=== PATIENT | female | born 1945 | race Caucasian/White ===

== ENCOUNTER 2016-12-14 13:04 | Inpatient (IN) | payer OTHER, MEDICAID ==
--- NOTE | 2016-12-14 13:48 | EDPHY ---
HPI/HX/ROS/PE/MDM - Data Points Imaging: Discussed imaging studies w/ call center support consultant Radiologist Narrative: CHIEF COMPLAINT: Altered mental status. HISTORY OF PRESENT ILLNESS: This patient is a 71 year old female with history of CVA with persistent mild expressive aphasia, end stage renal disease, and COPD arriving via EMS from [place] for evaluation of altered mental status. She was admitted to [place] from [facility] in Jun, 2016. The patient was unusually fatigued following her dialysis appointment this morning and presents for evaluation. When the patient arrived via EMS, she was awake and chatting with no complaints. On my evaluation 10 minutes later, the patient appears to be sound asleep. She is sluggishly arousable. Will open her eyes and focus but not conversant with me. Vital signs are stable the patient is patent. Nurse reports that this is definitely a change from her prior initial presentation. HPI obtained primarily through nurse summary of EMS report. REVIEW OF SYSTEMS: Unable to obtain due to patient presentation. PAST MEDICAL HISTORY: 1. End stage real disease, 2. Diabetes mellitus type II 3. Knee amputation left, 4. COPD, 5. Hypertension 6. Pulmonary edema 7. Cardiomegaly 8. Heart failure 9. Hypothyroidism 10. CVA with persistent mild expressive aphasia. 11. GERD SOCIAL HISTORY: Lives at [place]. . Niece lives in [place]. VITAL SIGNS: Reviewed by me GENERAL: Elderly, debilitated, somnolent. Sleeping but minimally arousable. Will open her eyes to command. HEENT: Ecchymosis across forehead and circular healing abrasion over forehead at scalp line. Eyes: Pupils 3mm bilaterally. Reactive bilaterally. Disconjugate gaze. No icterus, no injection. Mouth: moist mucous membranes. No erythema or lesions. Neck: supple with no adenopathy. LUNGS: Crackles at bases bilaterally CARDIAC: Regular rate and rhythm, no rubs, murmurs or gallops. ABDOMEN: Soft, nondistended, bowel sounds normal. BACK: No CVA tenderness. EXTREMITIES: Left leg amputation below the knee. No trauma. No edema. Range of motion is normal throughout. NEURO: Somnolent. Disconjugate gaze. SKIN: Warm and dry, no rash. PSYCHIATRIC: Unable to asses. Portions of this note were transcribed by a director biomedical engineering. I personally performed a history, physical exam, medical decision making, and confirmed accuracy of information the transcribed note. (Jackelyn Villanueva) ED Course: 71 year old female presents for evaluation of altered mental status. Per nurse report, the patient was more alert upon arrival than at the time of my interview , during which she was quite somnolent and minimally arousable. Plan for labs including CBC, BMP, troponin, liver, lipase, coag, UA. Plan for CT head, chest x-ray, EKG. 14:[address] Rivero, radiologist. CT head negative for acute processes. CT scan of the cervical spine demonstrates no fractures. Patient's chest x-ray demonstrates possible compressive changes with fluid overload and bilateral lower lobe infiltrates cannot be excluded. Patient was quite difficult IV stick. Despite multiple attempts by the nursing staff, no IV access was obtained. I-STAT was obtained and is largely unremarkable and at baseline. Patient's creatinine is 2.6 on the I-STAT with a potassium of 3.9. Urinalysis was obtained and is concerning for significant urinary tract infection with 4+ bacteria and 50-182 white cells per high-power field. Plans were made for the patient to obtain a PICC line. I discussed admission to the hospital with Dr. Shilpi Roy. Patient will have the remainder of her laboratory evaluation drawn after the PICC line is placed. She received ceftriaxone for presumed urinary tract infection. Dr. mckeon is aware of the potential for a underlying pneumonia as well. Patient's care was assumed by Dr. Cornejo at 4:15 p.m. will follow up with the remainder of the laboratory evaluation. (Jackelyn Villanueva) MDM: I took over care of this patient at 4:30 p.m.. This patient is here for altered mental status and a urinary tract infection. This patient is being admitted to the hospitalist service. Laboratory work and cervical spine CT is pending at this time. Chest x-ray AP portable: Probable congestive heart failure versus fluid overload. Interpreted by myself. Radiologist's report reviewed as well. CT cervical spine: No acute fracture dislocation. Significant degenerative changes. Please see radiologist's report for further details. Venous lactate is 1.3. Glucose is within normal limits. Her troponin is mildly elevated. Potassium normal. BUN and creatinine baseline status post dialysis. 5:30 p.m., patient re-evaluated. She is sleeping but she arouses to voice. She is receiving her IV Rocephin for treatment of urinary tract infection at this time. Her remaining emergency department course under my care has been uneventful. She was admitted to the hospitalist service under Dr. Shilpi Roy in stable condition. (Raghav Cornejo) After the history was obtained and physical exam performed, the following differential for the patient's altered mental status was considered included but was not limited to hypoglycemia, electrolyte disturbances, intracranial hemorrhage, tumor, drug or alcohol intoxication, stroke, or TIA. (Jackelyn Villanueva ) - Data Points Imaging Results: Imaging Impressions Chest X-Ray 12/14/16 13:57 Impression: Suspicious of congestive heart failure or fluid overload. Superimposed pneumonia is not excluded. Head CT 12/14/16 13:58 Impression: Negative. No acute intracranial process. Findings discussed with Emergency Department physician, Jackelyn Villanueva MD, at 1450 hours 12/14/2016. Cervical Spine CT 12/14/16 15:43 Impression:: 1. No fracture or dislocation. 2. Active arthritis eroding the right facet joint at C3-C4. 3. Severe chronic disk degeneration at C5-C6 and C6-C7. 4. Possible eccentric rightward prolapse of disk at C7-T1. Laboratory Results: Laboratory Results 12/14/16 16:40 12/14/16 16:40 12/14/16 12/14/16 12/14/16 17:00 16:40 16:40 WBC RBC Hgb POC Hgb Hct POC Hct MCV MCH MCHC RDW Plt Count MPV Neut % (Auto) Lymph % (Auto) [place] % (Auto) Eos % (Auto) Baso % (Auto) Nucleat RBC Rel Count Absolute Neuts (auto) Absolute Lymphs (auto) Absolute Monos (auto) Absolute Eos (auto) Absolute Basos (auto) Absolute Nucleated RBC Immature Gran % Immature Gran # PT 14.4 SEC SEC (12.0-15.0) INR 1.13 (0.83-1.16) APTT 40.7 SEC H SEC (23.0-38.0) VBG Lactic Acid 1.3 mmol/L mmol/L (0.7-2.1) POC Sodium Sodium 133 mEq/L L mEq/L (134-144) POC Potassium Potassium 4.0 mEq/L mEq/L (3.5-5.2) POC Chloride Chloride 88 mEq/L L mEq/L (97-110) Carbon Dioxide 29 mEq/l mEq/l (22-31) Anion Gap 16 mEq/L mEq/L (8-16) POC BUN BUN 26 mg/dL H mg/dL (7-23) Creatinine 2.5 mg/dL H mg/dL (0.6-1.0) POC Creatinine Estimated GFR 19 Glucose 88 mg/dL mg/dL (70-100) POC Glucose Calcium 8.9 mg/dL mg/dL (8.5-10.4) Total Bilirubin 0.6 mg/dL mg/dL (0.1-1.4) Conjugated Bilirubin 0.3 mg/dL mg/dL (0.0-0.5) Unconjugated Bilirubin 0.3 mg/dL mg/dL (0.0-1.1) AST 17 IU/L IU/L (14-46) ALT 19 IU/L IU/L (9-52) Alkaline Phosphatase 81 IU/L IU/L (38-126) Troponin I 0.042 ng/mL H ng/mL (0.000-0.034) NT-Pro-B Natriuret Pep 34964 pg/mL H pg/mL (0-125) Total Protein 6.5 g/dL g/dL (6.3-8.2) Albumin 3.5 g/dL g/dL (3.5-5.0) Lipase 23 IU/L IU/L (23-300) Urine Color Urine Appearance Urine pH Ur Specific [place] Urine Protein Urine Ketones Urine Blood Urine Nitrate Urine Bilirubin Urine Urobilinogen Ur Leukocyte Esterase Urine RBC Urine WBC Ur Epithelial Cells Amorphous Sediment Urine Bacteria Urine Glucose 12/14/16 12/14/16 12/14/16 16:40 16:00 15:13 WBC 8.33 10^3/uL 10^3/uL (3.80-9.50) RBC 3.67 10^6/uL L 10^6/uL (4.18-5.33) Hgb 10.9 g/dL L g/dL (12.6-16.3) POC Hgb 12.6 gm/dL gm/dL (12.6-16.3) Hct 32.3 % L % (38.0-47.0) POC Hct 37 % L % (38-47) MCV 88.0 fL fL (81.5-99.8) MCH 29.7 pg pg (27.9-34.1) MCHC 33.7 g/dL g/dL (32.4-36.7) RDW 15.9 % H % (11.5-15.2) Plt Count 206 10^3/uL 10^3/uL (150-400) MPV 11.4 fL fL (8.7-11.7) Neut % (Auto) 76.6 % H % (39.3-74.2) Lymph % (Auto) 13.2 % L % (15.0-45.0) [place] % (Auto) 7.3 % % (4.5-13.0) Eos % (Auto) 1.9 % % (0.6-7.6) Baso % (Auto) 0.5 % % (0.3-1.7) Nucleat RBC Rel Count 0.0 % % (0.0-0.2) Absolute Neuts (auto) 6.38 10^3/uL 10^3/uL (1.70-6.50) Absolute Lymphs (auto) 1.10 10^3/uL 10^3/uL (1.00-3.00) Absolute Monos (auto) 0.61 10^3/uL 10^3/uL (0.30-0.80) Absolute Eos (auto) 0.16 10^3/uL 10^3/uL (0.03-0.40) Absolute Basos (auto) 0.04 10^3/uL 10^3/uL (0.02-0.10) Absolute Nucleated RBC 0.00 10^3/uL 10^3/uL (0-0.01) Immature Gran % 0.5 % % (0.0-1.1) Immature Gran # 0.04 10^3/uL 10^3/uL (0.00-0.10) PT INR APTT VBG Lactic Acid POC Sodium 133 mEq/L L mEq/L (134-144) Sodium POC Potassium 4.9 mEq/L mEq/L (3.3-5.0) Potassium POC Chloride 93 mEq/L L mEq/L (97-110) Chloride Carbon Dioxide Anion Gap POC BUN 34 mg/dL H mg/dL (7-23) BUN Creatinine POC Creatinine 2.6 mg/dL H mg/dL (0.6-1.0) Estimated GFR Glucose POC Glucose 101 mg/dL H mg/dL (70-100) Calcium Total Bilirubin Conjugated Bilirubin Unconjugated Bilirubin AST ALT Alkaline Phosphatase Troponin I NT-Pro-B Natriuret Pep Total Protein Albumin Lipase Urine Color FARHEEN Urine Appearance TURBID Urine pH 6.0 (5.0-7.5) Ur Specific [place] 1.009 (1.002-1.030) Urine Protein 2+ H (NEGATIVE) Urine Ketones NEGATIVE (NEGATIVE) Urine Blood 2+ H (NEGATIVE) Urine Nitrate NEGATIVE (NEGATIVE) Urine Bilirubin NEGATIVE (NEGATIVE) Urine Urobilinogen NEGATIVE EU EU (0.2-1.0) Ur Leukocyte Esterase 2+ H (NEGATIVE) Urine RBC 50-182 /hpf H /hpf (0-3) Urine WBC 50-182 /hpf H /hpf (0-3) Ur Epithelial Cells NONE SEEN /lpf /lpf (NONE-1+) Amorphous Sediment PRESENT /hpf /hpf (NONE-1+) Urine Bacteria 4+ /hpf H /hpf (NONE SEEN) Urine Glucose NEGATIVE (NEGATIVE) Point of Care Test Results: 12/14/16 15:13 POC Sodium 133 L POC Potassium 4.9 POC Chloride 93 L POC BUN 34 H POC Creatinine 2.6 H POC Glucose 101 H General Time Seen by Provider: 12/14/16 13:37 Initial Vital Signs: Initial Vital Signs Temperature (C) 36.3 C 12/14/16 13:12 Heart Rate 70 12/14/16 13:12 Respiratory Rate 16 12/14/16 13:12 Blood Pressure 150/59 H 12/14/16 13:12 O2 Sat (%) 100 12/14/16 13:12 O2 Delivery Mode Nasal Cannula O2 (L/minute) 2 Allergies/Adverse Reactions: adhesive Allergy (Verified 07/12/13 12:29) hydrocodone Allergy (Verified 04/14/15 15:43) hydrocortisone [From Hydrocortone] Allergy (Verified 07/12/13 12:29) hydrocortisone acetate [From Hydrocortone] Allergy (Verified 07/12/13 12:29) hydrocortisone sod phosphate [From Hydrocortone] Allergy (Verified 07/12/13 12: 29) Sulfa (Sulfonamide Antibiotics) Allergy (Verified 07/12/13 12:29) Home Medications: Medication Instructions Recorded Acetaminophen [Tylenol 325mg (*)] 650 mg PO Q4 PRN 12/25/12 Nitroglycerin [Nitrostat 0.4 mg 0.4 mg SL PRN PRN 12/25/12 (*)] Oxycodone Ir [Oxy Ir 5 mg (RX)] 2.5 mg PO BID PRN 12/25/12 Polyethylene Glycol 3350 [Miralax 17 gm PO DAILY PRN 12/25/12 17 gm (*)] Aspirin [Aspirin 81mg (*)] 81 mg PO DAILY 07/12/13 Furosemide [Lasix 80 MG (*)] 80 mg PO BID 01/21/15 Midodrine HCl 5 mg PO TUTHSA@0900 01/21/15 Tiotropium Inhaler [Spiriva 18 mcg IH DAILY 01/21/15 Handihaler] Calcium Carbonate [Tums 500MG (*)] 1,000 mg PO DAILY PRN 04/14/15 Atorvastatin Calcium [Lipitor 80 80 mg PO DAILY 12/14/16 mg] Calcium Carbonate [Tums 500MG (*)] 1,500 mg PO BID 12/14/16 Clopidogrel Bisulfate [Clopidogrel] 75 mg PO DAILY 12/14/16 Herbals/Supplements -Info Only 1 ea PO DAILY 12/14/16 Insulin Glargine [Lantus 100 3 units SC DAILY 12/14/16 UNITS/ML (*)] Insulin Glargine [Lantus 100 5 units SC HS 12/14/16 UNITS/ML (*)] Ipratropium/Albuterol [Duoneb (*)] 3 ml IH Q4H PRN 12/14/16 Lactulose [Enulose] 30 gm PO BID PRN 12/14/16 Magnesium Hydroxide [Milk of 30 ml PO DAILY 12/14/16 Magnesia] Metoprolol Tartrate [Lopressor 25 12.5 mg PO BID 12/14/16 mg (*)] Nystatin Powder [Mycostatin Powder 1 porfirio TP TID 12/14/16 (RX)] Pregabalin [Lyrica 50mg (*)] 50 mg PO TID 12/14/16 levOFLOXACIN [levAQUIN (*)] 125 mg PO DAILY 12/14/16 Departure - Departure Disposition: [facility] Acute Clinical Impression: Elevated troponin, ESRD (end stage renal disease) on dialysis Altered mental status Qualifiers: Altered mental status type: unspecified Qualified Code(s): R41.82 - Altered mental status, unspecified Chronic renal failure Qualifiers: Chronic kidney disease stage: unspecified stage Qualified Code(s): N18.9 - Chronic kidney disease, unspecified Urinary tract infection Qualifiers: Urinary tract infection type: site unspecified Hematuria presence: without hematuria Qualified Code(s): N39.0 - Urinary tract infection, site not specified Anemia Qualifiers: Anemia type: unspecified type Qualified Code(s): D64.9 - Anemia, unspecified Condition: Fair Report Scribed for: Jackelyn Villanueva Report Scribed by: Pilar Taveras Date of Report: 12/14/16 Time of Report: 13:48
--- NOTE | 2016-12-14 14:47 | CPEKG ---
Heart Rate: 54 RR Interval: 1111 P-R Interval: 192 QRSD Interval: 100 QT Interval: 508 QTC Interval: 482 P [place]: 47 QRS [place]: 107 T Wave [place]: -25 EKG Severity - ABNORMAL ECG - EKG Impression: SINUS RHYTHM EKG Impression: RIGHT AXIS DEVIATION EKG Impression: ABNRM R PROG, CONSIDER ASMI OR LEAD PLACEMENT EKG Impression: REPOL ABNRM, PROBABLE ISCHEMIA, ANTERIOR LDS Electronically Signed By: Annalisa Perales 14-Dec-2016 20:36:44
--- NOTE | 2016-12-14 14:47 | CPEKG ---
Heart Rate: 54 RR Interval: 1111 P-R Interval: 192 QRSD Interval: 100 QT Interval: 508 QTC Interval: 482 P [place]: 47 QRS [place]: 107 T Wave [place]: -25 EKG Severity - ABNORMAL ECG - EKG Impression: SINUS RHYTHM EKG Impression: RIGHT AXIS DEVIATION EKG Impression: ABNRM R PROG, CONSIDER ASMI OR LEAD PLACEMENT EKG Impression: REPOL ABNRM, PROBABLE ISCHEMIA, ANTERIOR LDS Electronically Signed By: Annalisa Perales 14-Dec-2016 20:36:44
[2016-12-14] MEDS ORDERED: ALTEPLASE 2 MG VIAL IVP PRN (15:32)
[2016-12-14 16:45] LABS: PLATELET COUNT 206 10^3/uL (150-400)
[2016-12-14 17:13] LABS: INR 1.13 (0.83-1.16); PROTIME(PATIENT) 14.4 SEC (12.0-15.0)
[2016-12-14] MEDS ORDERED: POLYETHYLENE GLYCOL 3350 17 GM PKT PO PRN (22:00)
[2016-12-14] MEDS ORDERED: CALCIUM CARBONATE 500 MG CHEWABLE TAB PO PRN (22:00)
[2016-12-14] MEDS ORDERED: D50W 25 GM/50 ML SYR IVP PRN (22:06)
--- NOTE | 2016-12-14 22:59 | GHP ---
[f rep st] HISTORY AND PHYSICAL DATE OF ADMISSION: 12/14/2016 CHIEF COMPLAINT: Somnolence. HISTORY: The patient is a 71-year-old female, who lives at [facility]. She is on dialysis. She frannie t to dialysis today and came back to [facility] complaining of fatigue. They sent her to the emergen cy room. In the ER she was noted to be somnolent with minimal arousal. No further history is availa ble at this time. Emergency room diagnosed with a urinary tract infection and gave her a dose of IV ceftriaxone. PAST MEDICAL HISTORY: 1. COPD, on chronic oxygen. 2. End-stage renal disease, secondary to diabetic nephropathy. 3. Diabetes type 2. 4. Congestive heart failure, secondary to diastolic dysfunction. 5. Peripheral vascular disease, status post lower extremity amputation. 6. Renal cell carcinoma, status post resection. 7. Stroke with chronic aphasia. MEDICATIONS: Please see computer record for full detailed list. ALLERGIES: Hydrocodone. SOCIAL HISTORY: Previous history of smoking. No alcohol. She lives at [facility]. COR status is u nknown. REVIEW OF SYSTEMS: Unobtainable due to patient's unresponsiveness. FAMILY HISTORY: Unobtainable due to patient's unresponsiveness. PHYSICAL EXAMINATION: GENERAL: Well-developed, well-nourished female, in no distress. VITAL SIGNS: Temperature is 36.8, pulse 57, blood pressure 136/55, satting 98% 2 L. EYES: Normal conjunctivae. Pupils react to light. ENT: Normal ears and nose. Unable to assess hearing. Oropharynx dry. NE CK: Trachea midline. No thyromegaly. CHEST: Normal effort. LUNGS: Clear to auscultation bilater ally. CARDIOVASCULAR: Regular rhythm. No murmur. No lower extremity edema. ABDOMEN: Soft, nonte nder. No hepatosplenomegaly. SKIN: Warm, dry, intact, with a rash. MUSCULOSKELETAL: No cyanosis or clubbing. Unable to assess strength or sensation due to altered mental status. NEUROLOGIC: Unab le to assess cranial nerves. She is alert and oriented x0. She is somnolent. PSYCH: She is arousa ble to a deep sternal rub, but otherwise poor judgment, poor insight, poor memory. LABORATORY DATA: White count 8.33, hematocrit 32.3, platelets 206. Sodium 133, potassium 4.0, chlor dawn 88, bicarb 29, BUN 26, creatinine 2.5, glucose 88. Troponin 0.042. BNP is 32,800. Urinalysis s hows 50-182 white blood cells, 4+ bacteria. INR is 1.13. Lactate is 1.3. A chest x-ray consistent with congestive heart failure. EKG viewed by me. My personal interpretatio n is normal sinus rhythm. She has some deep anterior T-wave inversions which are new compared with h er last EKG. Respiratory: PCR is positive for rhinovirus/enterovirus. MEDICAL RECORDS REVIEW: I did review previous medical records regarding her extensive medical histor y, as well as to view old EKGs. ASSESSMENT/PLAN: 1. Metabolic encephalopathy. My suspicion is that this is a viral infection. She does have a posit tayla respiratory PCR for rhinovirus and enterovirus. At this time, however, I cannot assess recent sy mptoms. There was a question of urinary tract infection in the emergency room, and she was given a d ose of IV ceftriaxone. I am hesitant to diagnose dirty urine in a hemodialysis as urinary tract infe ction, so will hold off on further antibiotics, especially since she does not have fever or leukocyto sis. Will send a urine culture. 2. Electrocardiogram changes. She has new deep anterior T-wave inversions on her EKG. Unable to as sess whether or not she may be having chest pain or shortness of breath. Head CT is negative. Will follow serial troponins and EKGs. Will check an echocardiogram. She may need an ischemic evaluation , although, she may also be appropriate for ongoing medical management only. 3. End-stage renal disease. She just had hemodialysis today, and probably does not need it for anot her 2 days. If she remains hospitalized, Nephrology will need to be consulted. 4. Chronic obstructive pulmonary disease, on chronic O2. This is stable. 5. Diabetes type 2. Will continue usual insulin plus a sliding scale. CODE STATUS: Full, until further clarification. ADMISSION STATUS: Observation, as she might be able to go back to the alf tomorrow if nothi ng further is found. DVT PROPHYLAXIS: She is high risk. Will place her on subcu heparin. /[id number]/MODL
[2016-12-14] MEDS: PREGABALIN 50 MG CAP PO SCH (23:02)
[2016-12-14] MEDS: NYSTATIN POWDER 15 GM BTL TP SCH (23:02)
[2016-12-15] MEDS: HEPARIN 5,000 UNIT/0.5 ML SYR SC SCH ×3 (05:11→21:09)
[2016-12-15 05:38] LABS: PLATELET COUNT 201 10^3/uL (150-400)
--- NOTE | 2016-12-15 05:56 | CPEKG ---
Heart Rate: 56 RR Interval: 1071 P-R Interval: 200 QRSD Interval: 92 QT Interval: 500 QTC Interval: 483 P [place]: 45 QRS [place]: 118 T Wave [place]: -46 EKG Severity - ABNORMAL ECG - EKG Impression: SINUS RHYTHM EKG Impression: ANTERIOR INFARCT, AGE INDETERMINATE EKG Impression: ABNORMAL T, CONSIDER ISCHEMIA, INFERIOR LEADS -- MORE PRONOUNCED SINCE NOVEMBER EKG Impression: 2016, 14:45 Electronically Signed By: Malcolm Chawla 15-Dec-2016 05:55:46
[2016-12-15] MEDS: TIOTROPIUM INHALER 18 MCG/DOSE 5 DOSE/MDI IH SCH (08:40)
[2016-12-15] MEDS ORDERED: FUROSEMIDE 40 MG TAB PO SCH (09:00)
[2016-12-15] MEDS: INSULIN REGULAR HUMAN 100 UNIT/ML SC SCH ×4 (09:00→21:08)
[2016-12-15] MEDS: ASPIRIN 81 MG CHEWABLE TAB PO SCH (09:00)
[2016-12-15] MEDS: METOPROLOL TARTRATE 25 MG TAB PO SCH ×2 (09:01→21:09)
[2016-12-15] MEDS: ATORVASTATIN CALCIUM 40 MG TAB PO SCH (09:02)
[2016-12-15] MEDS: CLOPIDOGREL BISULFATE 75 MG TAB PO SCH (09:02)
[2016-12-15] MEDS: CALCIUM CARBONATE 500 MG CHEWABLE TAB PO SCH ×2 (09:03→21:08)
[2016-12-15] MEDS: PREGABALIN 50 MG CAP PO SCH ×3 (09:07→21:09)
[2016-12-15] MEDS: INSULIN GLARGINE 100 UNITS/ML SYRINGE SC SCH ×2 (09:09→21:08)
[2016-12-15] MEDS: NYSTATIN POWDER 15 GM BTL TP SCH ×3 (09:09→21:10)
--- NOTE | 2016-12-15 14:21 | ASMTCASEMG ---
Living Arrangements What is your living Answers: Alone arrangement? Who do you live with? Type Of Residence What kind of residence do Answers: [facility] Facility you live in? Type of Residence Facility Name Notes: [facility] Discharge Plan Comments Coordination Status Comments Notes: Pt is a 71 y/o female admitted w/ UTI with sepsis. Pt lives at [facility] and currently on dialysis. Pt will most likely d/c back to [facility] when she is medically stable. CM available for d/c needs or changes. Date Signed: 12/15/2016 02:20 PM Electronically Signed By:MALORIE Singh
--- NOTE | 2016-12-15 14:21 | ASMTCASEMG ---
Living Arrangements What is your living Answers: Alone arrangement? Who do you live with? Type Of Residence What kind of residence do Answers: Senior Living Facility you live in? Type of Residence Facility Name Notes: [facility] Discharge Plan Comments Coordination Status Comments Notes: Pt is a 71 y/o female admitted w/ UTI with sepsis. Pt lives at [facility] and currently on dialysis. Pt will most likely d/c back to [facility] when she is medically stable. CM available for d/c needs or changes. Date Signed: 12/15/2016 02:20 PM Electronically Signed By:MALORIE Singh
--- NOTE | 2016-12-15 15:06 | ECHO ---
[email or web address] [address] [address] Main: [phone] Fax: Transthoracic Echocardiogram Name: PADILLA SPRAGUE MR#: [id number] Study Date: 12/15/2016 Study Time: 08:03 AM Date of : 1945 Age: 71 year(s) Height: 154.9 cm (61 in.) Weight: 81.65 kg (180 lb.) BSA: 1.81 m2 Gender: Female Examination: Echo Indication: EKG changes Image Quality: Contrast: Requested by: Shilpi Roy BP: 105 mmHg/48 mmHg Heart Rate: Rhythm: Indication: EKG changes Procedure Staff [employer] Correspondent: Kayy Knutson Physician: Maurizio Batista Requesting Provider: Conclusions: Mild to moderate LVH. Global hypercontractility of the left ventricle. Diastolic dysfunction is present. . Mildly to moderately dilated right ventricle. The left atrium is moderately dilated. Moderate mitral annular calcification. Moderate mitral valve stenosis is present. Moderate mitral valve regurgitation is present. Severe posterior mitral leaflet calcification. MV max PG is 22mmHG. MV mean PG is 10mmHG.. Mild aortic cusp calcification is noted. Mild to moderate tricuspid valve regurgitation. The pulmonary artery pressure is moderately increased. Measurements: Chambers Valvular Assessment AV/MV Valvular Assessment TV/PV Normal Normal Normal Name Value Range Name Value Range Name Value Range Ao Susan (MM): 2.8 cm (2.2 cm-3.7 AV meanP mmHg ( - ) TR Vmax: 3.97 mm/s ( - ) cm) FRITZ (VTI): 1.8 cm ( - ) TR PGmax: 63 mmHg ( - ) IVSd (2D): 0.9 cm (0.6 cm-1.1 MV E Vmax: 2.27 m/s ( - ) syst. PAP: 73 mmHg ( - ) cm) MV A Vmax: 1.92 m/s ( - ) LVDd (2D): 3.9 cm (3.9 cm-5.3 MV E/A: 1.18 ( - ) cm) MV meanP mmHg ( - ) LVDs (2D): 1.8 cm (2.1 cm-4 cm) MV PHT: 0.153 s ( - ) LVPWd (2D): 1.0 cm ( - ) MVA (Vmax): 0.7 m/s ( - ) LVOTd 1.9 cm 1.9 cm mm MVA (PHT): 1.4 s ( - ) LVEF (MOD4): 82 % (>=55 %) RVDd(2D): 999.0 cm (1.9 cm-3.8 cmmm) Patient: PADILLA SPRAGUE Study Date: 12/15/2016 Page 1 of 2 08:03 AM Continued Measurements: Chambers Valvular Assessment AV/MV Valvular Assessment TV/PV Name Value Name Value Name Value LADs: 4.4 cm MV Annulus: 3.3 cm CVP (est.): 10 mmHg LADs Lon.3 cm MV DecTime: 500 m/s LA Area: 28.4 cm2 MV E' Septal: 0.04 m/s MV E/E' Septal: 58.20 MV E/E' Lateral: 55.50 MV VTI: 87.80 cm MR Vena Contracta: 0.4 cm Findings: Left Ventricle: Normal size left ventricle. Mild to moderate LVH. Global hypercontractility of the left ventricle. EF is 82 %. Diastolic dysfunction is present. . Right Ventricle: Mildly to moderately dilated right ventricle. There is a moderator band noted in the right ventricle. Left Atrium: The left atrium is moderately dilated. Mitral Valve: Moderate mitral annular calcification. Moderate mitral valve stenosis is present. Moderate mitral valve regurgitation is present. Severe posterior mitral leaflet calcification. MV max PG is 22mmHG. MV mean PG is 10mmHG.. Aortic Valve: Mild aortic cusp calcification is noted. Tricuspid Valve: The tricuspid valve appears normal. Mild to moderate tricuspid valve regurgitation. The pulmonary artery pressure is moderately increased. RVSP is 68-73mmHG.. Pulmonic Valve: The pulmonic valve is normal in appearance. (No Signature Object) Patient: PADILLA SPRAGUE Study Date: 12/15/2016 Page 2 of 2 08:03 AM [id number]
--- NOTE | 2016-12-15 15:06 | ECHO ---
[email or web address] [address] [address] Main: [phone] Fax: Transthoracic Echocardiogram Name: PADILLA SPRAGUE MR#: [id number] Study Date: 12/15/2016 Study Time: 08:03 AM Date of : 1945 Age: 71 year(s) Height: 154.9 cm (61 in.) Weight: 81.65 kg (180 lb.) BSA: 1.81 m2 Gender: Female Examination: Echo Indication: EKG changes Image Quality: Contrast: Requested by: Shilpi Roy BP: 105 mmHg/48 mmHg Heart Rate: Rhythm: Indication: EKG changes Procedure Staff Classroom Technology Coach: Kayy Knutson Physician: Maurizio Batista Requesting Provider: Conclusions: Mild to moderate LVH. Global hypercontractility of the left ventricle. Diastolic dysfunction is present. . Mildly to moderately dilated right ventricle. The left atrium is moderately dilated. Moderate mitral annular calcification. Moderate mitral valve stenosis is present. Moderate mitral valve regurgitation is present. Severe posterior mitral leaflet calcification. MV max PG is 22mmHG. MV mean PG is 10mmHG.. Mild aortic cusp calcification is noted. Mild to moderate tricuspid valve regurgitation. The pulmonary artery pressure is moderately increased. Measurements: Chambers Valvular Assessment AV/MV Valvular Assessment TV/PV Normal Normal Normal Name Value Range Name Value Range Name Value Range Ao Susan (MM): 2.8 cm (2.2 cm-3.7 AV meanP mmHg ( - ) TR Vmax: 3.97 mm/s ( - ) cm) FRITZ (VTI): 1.8 cm ( - ) TR PGmax: 63 mmHg ( - ) IVSd (2D): 0.9 cm (0.6 cm-1.1 MV E Vmax: 2.27 m/s ( - ) syst. PAP: 73 mmHg ( - ) cm) MV A Vmax: 1.92 m/s ( - ) LVDd (2D): 3.9 cm (3.9 cm-5.3 MV E/A: 1.18 ( - ) cm) MV meanP mmHg ( - ) LVDs (2D): 1.8 cm (2.1 cm-4 cm) MV PHT: 0.153 s ( - ) LVPWd (2D): 1.0 cm ( - ) MVA (Vmax): 0.7 m/s ( - ) LVOTd 1.9 cm 1.9 cm mm MVA (PHT): 1.4 s ( - ) LVEF (MOD4): 82 % (>=55 %) RVDd(2D): 999.0 cm (1.9 cm-3.8 cmmm) Patient: PADILLA SPRAGUE Study Date: 12/15/2016 Page 1 of 2 08:03 AM Continued Measurements: Chambers Valvular Assessment AV/MV Valvular Assessment TV/PV Name Value Name Value Name Value LADs: 4.4 cm MV Annulus: 3.3 cm CVP (est.): 10 mmHg LADs Lon.3 cm MV DecTime: 500 m/s LA Area: 28.4 cm2 MV E' Septal: 0.04 m/s MV E/E' Septal: 58.20 MV E/E' Lateral: 55.50 MV VTI: 87.80 cm MR Vena Contracta: 0.4 cm Findings: Left Ventricle: Normal size left ventricle. Mild to moderate LVH. Global hypercontractility of the left ventricle. EF is 82 %. Diastolic dysfunction is present. . Right Ventricle: Mildly to moderately dilated right ventricle. There is a moderator band noted in the right ventricle. Left Atrium: The left atrium is moderately dilated. Mitral Valve: Moderate mitral annular calcification. Moderate mitral valve stenosis is present. Moderate mitral valve regurgitation is present. Severe posterior mitral leaflet calcification. MV max PG is 22mmHG. MV mean PG is 10mmHG.. Aortic Valve: Mild aortic cusp calcification is noted. Tricuspid Valve: The tricuspid valve appears normal. Mild to moderate tricuspid valve regurgitation. The pulmonary artery pressure is moderately increased. RVSP is 68-73mmHG.. Pulmonic Valve: The pulmonic valve is normal in appearance. (No Signature Object) Patient: PADILLA SPRAGUE Study Date: 12/15/2016 Page 2 of 2 08:03 AM [id number]
--- NOTE | 2016-12-15 15:06 | ECHO ---
[email or web address] [address] [address] Main: [phone] Fax: Transthoracic Echocardiogram Name: PADILLA SPRAGUE MR#: [id number] Study Date: 12/15/2016 Study Time: 08:03 AM Date of : 1945 Age: 71 year(s) Height: 154.9 cm (61 in.) Weight: 81.65 kg (180 lb.) BSA: 1.81 m2 Gender: Female Examination: Echo Indication: EKG changes Image Quality: Contrast: Requested by: Shilpi Roy BP: 105 mmHg/48 mmHg Heart Rate: Rhythm: Indication: EKG changes Procedure Staff Tail Board Worker: Kayy Knutson Physician: Maurizio Batista Requesting Provider: Conclusions: Mild to moderate LVH. Global hypercontractility of the left ventricle. Diastolic dysfunction is present. . Mildly to moderately dilated right ventricle. The left atrium is moderately dilated. Moderate mitral annular calcification. Moderate mitral valve stenosis is present. Moderate mitral valve regurgitation is present. Severe posterior mitral leaflet calcification. MV max PG is 22mmHG. MV mean PG is 10mmHG.. Mild aortic cusp calcification is noted. Mild to moderate tricuspid valve regurgitation. The pulmonary artery pressure is moderately increased. Measurements: Chambers Valvular Assessment AV/MV Valvular Assessment TV/PV Normal Normal Normal Name Value Range Name Value Range Name Value Range Ao Susan (MM): 2.8 cm (2.2 cm-3.7 AV meanP mmHg ( - ) TR Vmax: 3.97 mm/s ( - ) cm) FRITZ (VTI): 1.8 cm ( - ) TR PGmax: 63 mmHg ( - ) IVSd (2D): 0.9 cm (0.6 cm-1.1 MV E Vmax: 2.27 m/s ( - ) syst. PAP: 73 mmHg ( - ) cm) MV A Vmax: 1.92 m/s ( - ) LVDd (2D): 3.9 cm (3.9 cm-5.3 MV E/A: 1.18 ( - ) cm) MV meanP mmHg ( - ) LVDs (2D): 1.8 cm (2.1 cm-4 cm) MV PHT: 0.153 s ( - ) LVPWd (2D): 1.0 cm ( - ) MVA (Vmax): 0.7 m/s ( - ) LVOTd 1.9 cm 1.9 cm mm MVA (PHT): 1.4 s ( - ) LVEF (MOD4): 82 % (>=55 %) RVDd(2D): 999.0 cm (1.9 cm-3.8 cmmm) Patient: PADILLA SPRAGUE Study Date: 12/15/2016 Page 1 of 2 08:03 AM Continued Measurements: Chambers Valvular Assessment AV/MV Valvular Assessment TV/PV Name Value Name Value Name Value LADs: 4.4 cm MV Annulus: 3.3 cm CVP (est.): 10 mmHg LADs Lon.3 cm MV DecTime: 500 m/s LA Area: 28.4 cm2 MV E' Septal: 0.04 m/s MV E/E' Septal: 58.20 MV E/E' Lateral: 55.50 MV VTI: 87.80 cm MR Vena Contracta: 0.4 cm Findings: Left Ventricle: Normal size left ventricle. Mild to moderate LVH. Global hypercontractility of the left ventricle. EF is 82 %. Diastolic dysfunction is present. . Right Ventricle: Mildly to moderately dilated right ventricle. There is a moderator band noted in the right ventricle. Left Atrium: The left atrium is moderately dilated. Mitral Valve: Moderate mitral annular calcification. Moderate mitral valve stenosis is present. Moderate mitral valve regurgitation is present. Severe posterior mitral leaflet calcification. MV max PG is 22mmHG. MV mean PG is 10mmHG.. Aortic Valve: Mild aortic cusp calcification is noted. Tricuspid Valve: The tricuspid valve appears normal. Mild to moderate tricuspid valve regurgitation. The pulmonary artery pressure is moderately increased. RVSP is 68-73mmHG.. Pulmonic Valve: The pulmonic valve is normal in appearance. (No Signature Object) Patient: PADILLA SPRAGUE Study Date: 12/15/2016 Page 2 of 2 08:03 AM [id number]
[2016-12-15] MEDS ORDERED: FUROSEMIDE 100 MG/10 ML VIAL IVP ONE (16:22)
--- NOTE | 2016-12-15 16:32 | HOSPPROG ---
Hospitalist Progress Note Assessment/Plan: 71 yo F w esrd, known pulm htn a/w weakness post HD wekaness: likely 2/2 progressive valvular disease CV: echo shows progressive MR, similarly elevated rvsp, tr indet trop, markedly elevated bnp 1. I suspect she is volume overloaded 2/2 loss of muscle mass and unchanged dry weight 2. attempt at diuresis w IV lasix 3. nephrology called, will remove extra volume during HD MR: progressive worth re-evaluating when euvolemic indet trop: ekg changes noted (interp by me)- these are new c/w prior trop is flat and likely 2/2 acute diastolic heart failure repeat in AM probably reasonable to perform ischemic eval when euvolemic ?UTI: unlikely hold further abx proph: sc heparin dispo: inpatient Subjective: case d/w dr larsen. denies CP Objective: Vital Signs Temp Pulse Resp BP Pulse Ox 36.9 C 58 L 20 102/52 L 94 12/15/16 11:44 12/15/16 11:44 12/15/16 11:44 12/15/16 12:07 12/15/16 11:44 Laboratory Results 12/15/16 04:40 12/15/16 04:40 12/14/16 12/15/16 12/16/16 05:59 05:59 05:59 Intake Total 100 Balance 100 PT 14.4 SEC (12.0-15.0) 12/14/16 16:40 INR 1.13 (0.83-1.16) 12/14/16 16:40 - Physical Exam Constitutional: no apparent distress, chronically ill appearing Eyes: PERRL, anicteric sclera Ears, Nose, Mouth, Throat: moist mucous membranes, hearing normal Cardiovascular: regular rate and rhythym, no murmur, rub, or gallop, systolic murmur Respiratory: no respiratory distress, no rales or rhonchi Gastrointestinal: normoactive bowel sounds, soft, non-tender abdomen Genitourinary: no bladder fullness, No squires in urethra Skin: warm, normal color Musculoskeletal: full muscle strength, no muscle tenderness Neurologic: AAOx3 Psychiatric: interacting appropriately ICD10 Worksheet Patient Problems: Problems Problem Status Onset Altered mental status Acute Anemia Acute Chronic renal failure Acute ESRD (end stage renal disease) on dialysis Acute Elevated troponin Acute Urinary tract infection Acute Anemia Active Diabetes mellitus type 2 Active Dyslipidemia Active Hypothyroidism Active Acute hyponatremia Acute COPD exacerbation Acute Chronic Disease Mgmt/Transitional Care Acute Clostridium difficile infection Acute Congestive heart failure Acute Hypochloremia Acute Hypoxemia Acute MRSA (methicillin resistant Staphylococcus aureus) Acute 04/16/15 Pneumonia Acute Sepsis without acute organ dysfunction Acute Shortness of breath Acute
[2016-12-15] MEDS ORDERED: FUROSEMIDE 40 MG/4 ML VIAL IVP ONE (16:45)
[2016-12-15] MEDS ORDERED: ONDANSETRON DISINTEGRATING 4 MG TAB PO PRN (23:54)
[2016-12-16] MEDS: HEPARIN 5,000 UNIT/0.5 ML SYR SC SCH ×3 (05:03→21:42)
[2016-12-16] MEDS ORDERED: FUROSEMIDE 40 MG/4 ML VIAL IVP SCH (09:00)
[2016-12-16] MEDS: INSULIN REGULAR HUMAN 100 UNIT/ML SC SCH ×4 (09:28→21:33)
--- NOTE | 2016-12-16 09:36 | GCON ---
[f rep st] CONSULTATION DATE OF CONSULTATION: 12/16/2016 REASON FOR CONSULTATION: Opinion regarding end-stage kidney failure. HISTORY OF PRESENT ILLNESS: The patient is a very pleasant 71-year-old female with end-stage kidney failure due to diabetes mellitus type 2. The patient was in her usual state of health until yesterda y. She resides in a retirement. She fell asleep in her chair and then fell out of her chair, bump ing her head on the floor. She was brought to the emergency department for further evaluation and ma nagement. The patient was a bit confused and having a difficult time answering questions. CT scan o f the head was done, showing no acute intracranial process. Cervical spine CT was also performed, sh owing no fracture or dislocation. She does have arthritis and severe chronic disk degeneration in C5 -C6 and C6-C7, and also possible eccentric rightward prolapse of her disk at C7-T1. Patient was admi tted to the hospital for further evaluation and management. Patient is currently seen on dialysis. She is sitting up in the chair. She says she feels better today. Her head does not hurt, but she do es have a bruise on her forehead. She denies having had fevers, chills, nausea, vomiting or chest pa in. She has chronic shortness of breath with cough and sputum production from her COPD. No hemoptys is, hematemesis, epistaxis, abdominal pain, diarrhea or constipation. She does not make urine. No g ross hematuria or dysuria. PAST MEDICAL HISTORY: Significant for: 1. End-stage kidney failure on 3 times weekly hemodialysis. 2. COPD. 3. Continued tobacco use at about a half-pack per day. 4. Diabetes mellitus type 2. 5. Congestive heart failure. 6. Hyperlipidemia. 7. Peripheral vascular occlusive disease. 8. History of stroke. 9. Renal cell carcinoma, status post nephrectomy. CURRENT MEDICATIONS: Include: 1. Aspirin 81 mg a day. 2. Lipitor 80 mg a day. 3. Plavix 75 mg a day. 4. Tums. 5. Lasix 80 mg twice daily IV. 6. Insulin. 7. Metoprolol 12.5 mg twice daily. 8. Midodrine 5 mg prior to dialysis. 9. Lyrica 50 mg 3 times daily. 10. Spiriva. 11. Zofran. 12. Oxycodone. ALLERGIES: To adhesive, hydrocodone and cortisone. FAMILY HISTORY: Not contributory. SOCIAL HISTORY: She is a half-pack a day smoker. No alcohol. Does not have kids. She does read a lot of books. REVIEW OF SYSTEMS: A complete 12-point review of systems was performed with pertinent positives and negatives as per the previous sections. PHYSICAL EXAMINATION: GENERAL: She is awake, alert, cooperative and is in no acute distress. HEENT : She has a bruise on her forehead. NECK: No lymphadenopathy or thyromegaly. HEART: Regular with a grade 2/6 murmur. No rub. No S3. LUNGS: No rhonchi or wheezes. ABDOMEN: Bowel sounds positiv e. Soft, nontender, nondistended. EXTREMITIES: Trace edema. No cyanosis or clubbing. NEUROLOGIC: No asterixis. SKIN: Several bruises. LYMPH: No palpable lymphadenopathy or lymphedema. MUSCULO SKELETAL: No effusions or tenderness. LABORATORY: WBC 7.8, hemoglobin 9.6, hematocrit 29.5, platelet count 201,000. INR 1.13. Urinalysis specific gravity 1.009, pH 6, +2 protein, +2 blood. Serum sodium 132, potassium 4.4, chloride 91, C O2 25, BUN 64, creatinine 4.3, glucose 82. TSH of 1.720. BNP of 26,000. Troponin 0.034. Echocardiogram showed moderate left ventricular hypertrophy with global hypercontractility. Ejection fraction was 82%. She does have diastolic dysfunction. There is moderate mitral annular calcificat ion and moderate mitral valve stenosis and moderate mitral regurgitation. There is severe posterior mitral leaflet calcification as well. Pulmonary artery pressure is moderately increased at 68-73 mmH g. Pulmonic valve appeared normal. IMPRESSION: 1. Fall at home and bumping her head. CT scan of the head was negative for any acute intracranial p rocess. 2. End-stage kidney failure. On 3 times weekly hemodialysis. 3. Anemia of chronic kidney disease. 4. Congestive heart failure with an elevated BNP. 5. Chronic obstructive pulmonary disease with continued tobacco use. RECOMMENDATIONS: 1. We will plan on doing dialysis today. 2. She did get antibiotics yesterday for possible urinary tract infection. 3. Continue her current therapies. 4. Her next dialysis will be on Tuesday. Thank you for allowing me to participate in the care of your patient. If there are any questions, pl ease do not hesitate to contact us. We will be following along with you. /[id number]/MODL
[2016-12-16] MEDS: TIOTROPIUM INHALER 18 MCG/DOSE 5 DOSE/MDI IH SCH (09:55)
[2016-12-16] MEDS: PREGABALIN 50 MG CAP PO SCH ×3 (10:07→21:45)
--- NOTE | 2016-12-16 10:25 | PDMN ---
Medical Necessity Medical necessity: Change to IP, as of 12/15/16, per MD; los >2 mn for eval/tx of weakness likely r/t progressive valvular disease, progressive MR, elevated bnp & volume overload; admit for IV diuresis, comorbid COPD, ESRD, DM, CHF, pulm htn, PVD, hx stroke w/chronic aphasia; per progress note & order 12/15/16
--- NOTE | 2016-12-16 10:27 | HOSPPROG ---
Hospitalist Progress Note Assessment/Plan: 71 yo F w esrd, known pulm htn admitted with weakness post HD weakness: likely 2/2 progressive valvular disease acute diastolic HF: still appears clinically volume up, CXR 12/14 personally reviewed and interpreted, +HF minimal uop with high dose IV Lasix, will dc volume removal by HD follow daily wt (dry wt appears to be ~77 kg) rpt CXR in am MR: progressive, echo shows progressive MR, similarly elevated rvsp, tr worth re-evaluating when euvolemic cardiology consulted indet trop: ekg changes with inferior and anterior T wave inversions ( personally reviewed and interpreted), new from prior. Pt is chest pain free trop is flat / chronically elevated ~0.03 - 0.04, now normalized diurese via HD per renal will discuss ischemic eval with cards, likely plan for nuc study when euvolemic ESRD: renal consulted, HD today PVD with h/o CVA: on DAPT COPD: stable Anemia of CKD: hgb 9.6, epo per renal ?UTI: UA marked pyuria and 4+ bacteria and pt endorses dysuria and urgency will cont ceftriaxone until Cx data back (though Cx sent after receiving Ceftriaxone) proph: sc heparin dispo: inpatient Subjective: Pt feels tired, just got back from dialysis. She endorses dysuria and urgency. No fevers/chills. No CP or SOB. She appears a bit tachypneic however. Objective: Vital Signs Temp Pulse Resp BP Pulse Ox 37.1 C 58 L 16 139/53 H 97 12/16/16 04:00 12/16/16 04:00 12/16/16 04:00 12/16/16 04:00 12/16/16 04:00 Laboratory Results 12/16/16 04:55 PT 14.4 SEC (12.0-15.0) 12/14/16 16:40 INR 1.13 (0.83-1.16) 12/14/16 16:40 - Physical Exam Constitutional: chronically ill appearing Eyes: PERRL Ears, Nose, Mouth, Throat: moist mucous membranes Cardiovascular: regular rate and rhythym Respiratory: no respiratory distress, inspiratory crackles Gastrointestinal: normoactive bowel sounds, soft, non-tender abdomen Skin: warm Musculoskeletal: generalized weakness Neurologic: AAOx3 Psychiatric: flat affect, poor insight ICD10 Worksheet Patient Problems: Problems Problem Status Onset Altered mental status Acute Anemia Acute Chronic renal failure Acute ESRD (end stage renal disease) on dialysis Acute Elevated troponin Acute Urinary tract infection Acute Anemia Active Diabetes mellitus type 2 Active Dyslipidemia Active Hypothyroidism Active Acute hyponatremia Acute COPD exacerbation Acute Chronic Disease Mgmt/Transitional Care Acute Clostridium difficile infection Acute Congestive heart failure Acute Hypochloremia Acute Hypoxemia Acute MRSA (methicillin resistant Staphylococcus aureus) Acute 04/16/15 Pneumonia Acute Sepsis without acute organ dysfunction Acute Shortness of breath Acute
[2016-12-16] MEDS: ATORVASTATIN CALCIUM 40 MG TAB PO SCH (10:59)
[2016-12-16] MEDS: CLOPIDOGREL BISULFATE 75 MG TAB PO SCH (10:59)
[2016-12-16] MEDS: CALCIUM CARBONATE 500 MG CHEWABLE TAB PO SCH ×2 (11:00→21:44)
[2016-12-16] MEDS: ASPIRIN 81 MG CHEWABLE TAB PO SCH (11:00)
[2016-12-16] MEDS: MIDODRINE HCL 5 MG TAB PO SCH (11:02)
[2016-12-16] MEDS: INSULIN GLARGINE 100 UNITS/ML SYRINGE SC SCH ×2 (11:04→21:42)
[2016-12-16] MEDS: NYSTATIN POWDER 15 GM BTL TP SCH ×3 (11:04→21:41)
[2016-12-16] MEDS: METOPROLOL TARTRATE 25 MG TAB PO SCH ×2 (11:20→21:44)
[2016-12-16] MEDS: oxyCODONE IR 5 MG TAB PO PRN ×2 (13:03→21:45)
--- NOTE | 2016-12-16 16:28 | PDCARCONS ---
Cardiology Consult Reason for Consult: Changes to echocardiographic findings Chief Complaint: Shortness of breath Requesting Physician: Hospitalist Crew History of Present Illness: Patient is a 71 y/o female, known to [facility] (Dr. Rosie Marinelli) in the outpatient setting, with history of DM (on insulin), HTN, CVA (two events), ESRD with HD three times per week, L BKA (secondary to PVD and DM history), COPD with lifelong tobacco use, and anemia of chronic disease, who presented to [facility] with altered mental status. ER with findings suggestive of UTI and rhino virus (uncertain if active). Shortness of breath was a complaint by the patient , and today, post dialysis, she is feeling much better. No cardiovascular complaints of chest pains or pressure, no PND or orthopnea (at present). Altered mental status was noted and UA suggestive of aforementioned UTI. Echocardiogram with mild progression of her mitral valve pathology (currently moderate mitral stenosis and regurgitation), but normal (to hyperdynamic) left ventricular systolic ejection fraction. Diastolic dysfunction is present. In review of outpatient office note from May 2015, there had been discussion at that time about possible need for angiography, and if abnormalities were noted, consideration for PCI therapy, but further procedures such as CABG were felt to have a much greater mortality for the patient given comorbidities (DM, ESRD, COPD, and CVAs). Remainder of the 12 point review of systems was otherwise unremarkable. History Information - Allergies/Home Medication List Allergies/Adverse Reactions: adhesive Allergy (Verified 07/12/13 12:29) hydrocodone Allergy (Verified 04/14/15 15:43) hydrocortisone [From Hydrocortone] Allergy (Verified 07/12/13 12:29) hydrocortisone acetate [From Hydrocortone] Allergy (Verified 07/12/13 12:29) hydrocortisone sod phosphate [From Hydrocortone] Allergy (Verified 07/12/13 12: 29) Sulfa (Sulfonamide Antibiotics) Allergy (Verified 07/12/13 12:29) Home Medications: Acetaminophen [Tylenol 325mg (*)] 650 mg PO Q4 PRN 12/25/12 [Last Taken 03:08] Nitroglycerin [Nitrostat 0.4 mg (*)] 0.4 mg SL PRN PRN 12/25/12 [Last Taken 03/08] Oxycodone Ir [Oxy Ir 5 mg (RX)] 2.5 mg PO BID PRN 12/25/12 [Last Taken 12/14/16 06:00] Polyethylene Glycol 3350 [Miralax 17 gm (*)] 17 gm PO DAILY PRN 12/25/12 [Last Taken Unknown] Aspirin [Aspirin 81mg (*)] 81 mg PO DAILY 07/12/13 [Last Taken 12/14/16] Furosemide [Lasix 80 MG (*)] 80 mg PO BID 01/21/15 [Last Taken 12/14/16 11:00] Midodrine HCl 5 mg PO TUTHSA@0900 01/21/15 [Last Taken 12/14/16] Tiotropium Inhaler [Spiriva Handihaler] 18 mcg IH DAILY 01/21/15 [Last Taken ] Calcium Carbonate [Tums 500MG (*)] 1,000 mg PO DAILY PRN 04/14/15 [Last Taken ] Atorvastatin Calcium [Lipitor 80 mg] 80 mg PO DAILY 12/14/16 [Last Taken ] Calcium Carbonate [Tums 500MG (*)] 1,500 mg PO BID 12/14/16 [Last Taken 11:00] Clopidogrel Bisulfate [Clopidogrel] 75 mg PO DAILY 12/14/16 [Last Taken 12/13/16 ] Herbals/Supplements -Info Only 1 ea PO DAILY 12/14/16 [Last Taken Unknown] Insulin Glargine [Lantus 100 UNITS/ML (*)] 3 units SC DAILY 12/14/16 [Last Taken 12/14/16] Insulin Glargine [Lantus 100 UNITS/ML (*)] 5 units SC HS 12/14/16 [Last Taken ] Ipratropium/Albuterol [Duoneb (*)] 3 ml IH Q4H PRN 12/14/16 [Last Taken Unknown] Lactulose [Enulose] 30 gm PO BID PRN 12/14/16 [Last Taken Unknown] Magnesium Hydroxide [Milk of Magnesia] 30 ml PO DAILY 12/14/16 [Last Taken 12/06] Metoprolol Tartrate [Lopressor 25 mg (*)] 12.5 mg PO BID 12/14/16 [Last Taken 11:00] Nystatin Powder [Mycostatin Powder (RX)] 1 porfirio TP TID 12/14/16 [Last Taken 12/14 11:00] Pregabalin [Lyrica 50mg (*)] 50 mg PO TID 12/14/16 [Last Taken 12/14/16 11:00] levOFLOXACIN [levAQUIN (*)] 125 mg PO DAILY 12/14/16 [Last Taken 12/13/16] I have personally reviewed and updated: family history, medical history, social history, surgical history Past Medical History: - Past Medical History CHF (diastolic), COPD, diabetes type 1, ESRD, hypertension, peripheral artery disease - Surgical History Additional surgical history: left BKA - Family History Positive for: non-pertinent - Social History Smoking Status: Current some day smoker Alcohol Use: None Drug Use: None Cardiac History - Cardiac History Cardiac Risk Factors: hypertension (>140/90), diabetes mellitus, current cigarette smoker, age > 65 Timing/Duration: Unsure Severity: moderate Severity Scale: 5 Activities at Onset: activity Modifying Factors: improves with: movement, oxygen, rest Associated Symptoms: shortness of breath, weakness Physical Exam Physical Exam: Temp Pulse Resp BP Pulse Ox 37.5 C 75 28 H 130/52 H 96 12/16/16 15:13 12/16/16 15:13 12/16/16 15:13 12/16/16 15:13 12/16/16 15:13 O2 (L/minute) 2 Constitutional: not in pain, chronically ill appearing, obese Eyes: PERRL, EOMI Ears, Nose, Mouth, Throat: moist mucous membranes Cardiovascular: regular rate and rhythym, systolic murmur, No edema Peripheral Pulses: 2+: dorsalis-pedis (R) Respiratory: no respiratory distress, clear to auscultation, No expiratory wheeze, No inspiratory crackles Gastrointestinal: normoactive bowel sounds Skin: warm, No rash Musculoskeletal: no muscle tenderness Neurologic: AAOx3, sensation intact bilaterally, CN II-XII Intact, No weakness Psychiatric: interacting appropriately, not anxious, not encephalopathic Lab and Imaging 12/15/16 04:40 12/16/16 04:55 WBC 7.80 10^3/uL (3.80-9.50) 12/15/16 04:40 RBC 3.31 10^6/uL (4.18-5.33) L 12/15/16 04:40 Hgb 9.6 g/dL (12.6-16.3) L 12/15/16 04:40 POC Hgb 12.6 gm/dL (12.6-16.3) 12/14/16 15:13 Hct 29.5 % (38.0-47.0) L 12/15/16 04:40 POC Hct 37 % (38-47) L 12/14/16 15:13 MCV 89.1 fL (81.5-99.8) 12/15/16 04:40 MCH 29.0 pg (27.9-34.1) 12/15/16 04:40 MCHC 32.5 g/dL (32.4-36.7) 12/15/16 04:40 RDW 16.0 % (11.5-15.2) H 12/15/16 04:40 Plt Count 201 10^3/uL (150-400) 12/15/16 04:40 MPV 12.0 fL (8.7-11.7) H 12/15/16 04:40 Neut % (Auto) 75.5 % (39.3-74.2) H 12/15/16 04:40 Lymph % (Auto) 13.6 % (15.0-45.0) L 12/15/16 04:40 Sumner % (Auto) 7.8 % (4.5-13.0) 12/15/16 04:40 Eos % (Auto) 2.3 % (0.6-7.6) 12/15/16 04:40 Baso % (Auto) 0.4 % (0.3-1.7) 12/15/16 04:40 Nucleat RBC Rel Count 0.0 % (0.0-0.2) 12/15/16 04:40 Absolute Neuts (auto) 5.89 10^3/uL (1.70-6.50) 12/15/16 04:40 Absolute Lymphs (auto) 1.06 10^3/uL (1.00-3.00) 12/15/16 04:40 Absolute Monos (auto) 0.61 10^3/uL (0.30-0.80) 12/15/16 04:40 Absolute Eos (auto) 0.18 10^3/uL (0.03-0.40) 12/15/16 04:40 Absolute Basos (auto) 0.03 10^3/uL (0.02-0.10) 12/15/16 04:40 Absolute Nucleated RBC 0.00 10^3/uL (0-0.01) 12/15/16 04:40 Immature Gran % 0.4 % (0.0-1.1) 12/15/16 04:40 Immature Gran # 0.03 10^3/uL (0.00-0.10) 12/15/16 04:40 PT 14.4 SEC (12.0-15.0) 12/14/16 16:40 INR 1.13 (0.83-1.16) 12/14/16 16:40 APTT 40.7 SEC (23.0-38.0) H 12/14/16 16:40 VBG Lactic Acid 1.3 mmol/L (0.7-2.1) 12/14/16 17:00 POC Sodium 133 mEq/L (134-144) L 12/14/16 15:13 Sodium 132 mEq/L (134-144) L 12/16/16 04:55 POC Potassium 4.9 mEq/L (3.3-5.0) 12/14/16 15:13 Potassium 4.4 mEq/L (3.5-5.2) 12/16/16 04:55 POC Chloride 93 mEq/L (97-110) L 12/14/16 15:13 Chloride 91 mEq/L (97-110) L 12/16/16 04:55 Carbon Dioxide 25 mEq/l (22-31) 12/16/16 04:55 Anion Gap 16 mEq/L (8-16) 12/16/16 04:55 POC BUN 34 mg/dL (7-23) H 12/14/16 15:13 BUN 64 mg/dL (7-23) H 12/16/16 04:55 Creatinine 4.3 mg/dL (0.6-1.0) H 12/16/16 04:55 POC Creatinine 2.6 mg/dL (0.6-1.0) H 12/14/16 15:13 Estimated GFR 12/16/16 04:55 Glucose 82 mg/dL (70-100) 12/16/16 04:55 POC Glucose 126 mg/dL (70-100) H 12/16/16 11:14 Calcium 8.3 mg/dL (8.5-10.4) L 12/16/16 04:55 Total Bilirubin 0.6 mg/dL (0.1-1.4) 12/14/16 16:40 Conjugated Bilirubin 0.3 mg/dL (0.0-0.5) 12/14/16 16:40 Unconjugated Bilirubin 0.3 mg/dL (0.0-1.1) 12/14/16 16:40 AST 17 IU/L (14-46) 12/14/16 16:40 ALT 19 IU/L (9-52) 12/14/16 16:40 Alkaline Phosphatase 81 IU/L (38-126) 12/14/16 16:40 Troponin I 0.034 ng/mL (0.000-0.034) 12/16/16 04:55 NT-Pro-B Natriuret Pep 99071 pg/mL (0-125) H 12/16/16 04:55 Total Protein 6.5 g/dL (6.3-8.2) 12/14/16 16:40 Albumin 3.5 g/dL (3.5-5.0) 12/14/16 16:40 Lipase 23 IU/L (23-300) 12/14/16 16:40 TSH 1.720 uIU/mL (0.465-4.680) 12/15/16 04:40 Urine Color FARHEEN 12/14/16 16:00 Urine Appearance TURBID 12/14/16 16:00 Urine pH 6.0 (5.0-7.5) 12/14/16 16:00 Ur Specific [place] 1.009 (1.002-1.030) 12/14/16 16:00 Urine Protein 2+ (NEGATIVE) H 12/14/16 16:00 Urine Ketones NEGATIVE (NEGATIVE) 12/14/16 16:00 Urine Blood 2+ (NEGATIVE) H 12/14/16 16:00 Urine Nitrate NEGATIVE (NEGATIVE) 12/14/16 16:00 Urine Bilirubin NEGATIVE (NEGATIVE) 12/14/16 16:00 Urine Urobilinogen NEGATIVE EU (0.2-1.0) 12/14/16 16:00 Ur Leukocyte Esterase 2+ (NEGATIVE) H 12/14/16 16:00 Urine RBC 50-182 /hpf (0-3) H 12/14/16 16:00 Urine WBC 50-182 /hpf (0-3) H 12/14/16 16:00 Ur Epithelial Cells NONE SEEN /lpf (NONE-1+) 12/14/16 16:00 Amorphous Sediment PRESENT /hpf (NONE-1+) 12/14/16 16:00 Urine Bacteria 4+ /hpf (NONE SEEN) H 12/14/16 16:00 Urine Glucose NEGATIVE (NEGATIVE) 12/14/16 16:00 Visualized and Interpreted Chest x-ray results: Yes Chest X-ray Interpretation: normal heart size, infiltrate, other (finding suggesive of CHF) EKG Interpretation: Positive for: normal sinsus rhythm, NS ST wave abnormalities , T waves inversion. Negative for: ST elevation, ST depression Echocardiogram: hyperdynamic LVEF mod MR/MS A/P Assessment: Patient is a 71 y/o female with ESRD on HD three times per week, COPD ( continued smoking), CVA (two events), HTN, DM (on insulin), PVD, and left BKA, who presented to [facility] after altered mental status were noted at senior care. In the ER, mental status changes were not as notable for the patient. UTI was noted from UA as well as rhino virus by nasal swab. BNP elevation noted consistent with congestive heart failure, but echocardiogram with normal left ventricular systolic ejection fraction was noted. There is some progression of the mitral valve pathology (moderate mitral stenosis and regurgitation were noted). HD today, and the patient is feeling better today. Outpatient discussion with cardiology in May 2015 about possible need for angiogram, but likely desire to avoid more invasive measures like CABG given her comorbidities. Plan: Recommendations for patient to maintain HD schedule as at present. Would arrange for [facility] tomorrow for better risk stratification of this patient. There was talk about angiography in 2016, but this testing was not pursued. The patient is not a good candidate for CABG. Her mitral valve pathology has progressed, but not to the degree that surgery is needed (or discussion of surgery). I have concerns about lack of CV symptoms given the degree of DM neuropathy (and nephropathy) that is noted. Diuresis via HD is likely to be the only successful manner to have management of heart failure. The patient does not have systolic dysfunction - there is diastolic dysfunction noted. Events might have been precipitated by UTI and/or upper respiratory infection ( rhino virus). Patient very much needs to stop smoking. Given history of COPD, would closely monitor oxygen sats and supplement to diminish CV work load.
[2016-12-17] MEDS: HEPARIN 5,000 UNIT/0.5 ML SYR SC SCH ×3 (05:38→21:53)
--- NOTE | 2016-12-17 08:50 | SOAPPROG ---
SOAP Progress Note Assessment/Plan: Assessment/Plan: The patient is a 71 y/o F with a h/o COPD still smoking, ESRD s /p RCC with nephrectomy, and CHD who presented on Tuesday with volume overload [facility] and possible UTI. ESRD T,Th,Sat -will do HD tomorrow -access AVF, no issues -continue to UF -most likely may be discharged after Tuesday run back to [facility] HTN/vol -mild CHF on CXR -still mildly hyponatremic 2/2 to hypervolemia -UF 2-3kg as above -continue home meds -fluid restriction and diet discussed Anemia -Hb 9.6, on EPO as outpatient -monitor CBC BMD -phos <4, on binders -continue to monitor COPD/nicotine abuse -smoking cessation -at baseline home O2 UTI ->100k aerococcus -on ceftriaxone, await sensitivities 12/17/16 08:53 Subjective: Patient feeling improved this AM. Refusing to do consecutive days of HD or UF. Smoking cessation discussed. Objective: Vital Signs Temp Pulse Resp BP Pulse Ox 36.7 C 53 L 18 115/51 L 98 12/17/16 04:00 12/17/16 04:00 12/17/16 04:00 12/17/16 04:00 12/17/16 04:00 Laboratory Results 12/17/16 04:50 12/17/16 04:50 12/16/16 12/17/16 12/18/16 05:59 05:59 05:59 Intake Total 250 Balance 250 PT 14.4 SEC (12.0-15.0) 12/14/16 16:40 INR 1.13 (0.83-1.16) 12/14/16 16:40 Physical Exam - Physical Exam General Appearance: alert, no apparent distress, cachetic EENT: PERRL/EOMI, pharynx normal Neck: non-tender, full range of motion Respiratory: accessory muscle use, decreased breath sounds, rales Cardiac/Chest: normal peripheral pulses, regular rate, rhythm, edema Abdomen: normal bowel sounds, non-tender, soft Skin: warm/dry, pallor Extremities: swelling Neuro/Psych: alert, normal mood/affect (L AVF), oriented x 3 ICD10 Worksheet Patient Problems: Problems Problem Status Onset Altered mental status Acute Anemia Acute Chronic renal failure Acute ESRD (end stage renal disease) on dialysis Acute Elevated troponin Acute Urinary tract infection Acute Anemia Active Diabetes mellitus type 2 Active Dyslipidemia Active Hypothyroidism Active Acute hyponatremia Acute COPD exacerbation Acute Chronic Disease Mgmt/Transitional Care Acute Clostridium difficile infection Acute Congestive heart failure Acute Hypochloremia Acute Hypoxemia Acute MRSA (methicillin resistant Staphylococcus aureus) Acute 04/16/15 Pneumonia Acute Sepsis without acute organ dysfunction Acute Shortness of breath Acute
--- NOTE | 2016-12-17 09:04 | HOSPPROG ---
Hospitalist Progress Note Assessment/Plan: 71 yo F w esrd, known pulm htn admitted with weakness post HD weakness: likely 2/2 rhinovirus infection, though also consider progressive valvular disease acute diastolic HF: still appears clinically volume up, CXR this am personally reviewed and interpreted, stable CHF findings minimal uop with high dose IV Lasix, which has been d/c'd volume removal by HD follow daily wt (dry wt appears to be ~77 kg) MR: echo shows progressive MR, similarly elevated rvsp, tr worth re-evaluating when euvolemic cards following indet trop: ekg changes with inferior and anterior T wave inversions ( personally reviewed and interpreted), new from prior. Pt is chest pain free trop is flat / chronically elevated ~0.03 - 0.04, now normalized diurese via HD per renal lexiscan today, discussed with cards ESRD: renal consulted, HD tue/thur/sat PVD with h/o BKA and CVA: cont DAPT COPD: stable Anemia of CKD: hgb 9.6, epo per renal UTI: UA marked pyuria and 4+ bacteria and pt endorses dysuria and urgency. UCx growing aerococcus >100K. Discussed with ID. This bug is sensitive to pure penicillins change ceftriaxone to po amox proph: sc heparin dispo: inpatient Subjective: Pt feels better. Breathing improved. Denies headache, CP or SOB. Resting comfortably. Objective: Vital Signs Temp Pulse Resp BP Pulse Ox 36.7 C 53 L 18 115/51 L 98 12/17/16 04:00 12/17/16 04:00 12/17/16 04:00 12/17/16 04:00 12/17/16 04:00 Laboratory Results 12/17/16 04:50 12/17/16 04:50 12/16/16 12/17/16 12/18/16 05:59 05:59 05:59 Intake Total 250 Balance 250 PT 14.4 SEC (12.0-15.0) 12/14/16 16:40 INR 1.13 (0.83-1.16) 12/14/16 16:40 - Physical Exam Constitutional: no apparent distress Eyes: PERRL Ears, Nose, Mouth, Throat: moist mucous membranes Cardiovascular: regular rate and rhythym Respiratory: no respiratory distress, reduced air movement, expiratory wheeze Gastrointestinal: normoactive bowel sounds, soft, non-tender abdomen Skin: warm Musculoskeletal: full muscle strength Neurologic: AAOx3 Psychiatric: interacting appropriately ICD10 Worksheet Patient Problems: Problems Problem Status Onset Altered mental status Acute Anemia Acute Chronic renal failure Acute ESRD (end stage renal disease) on dialysis Acute Elevated troponin Acute Urinary tract infection Acute Anemia Active Diabetes mellitus type 2 Active Dyslipidemia Active Hypothyroidism Active Acute hyponatremia Acute COPD exacerbation Acute Chronic Disease Mgmt/Transitional Care Acute Clostridium difficile infection Acute Congestive heart failure Acute Hypochloremia Acute Hypoxemia Acute MRSA (methicillin resistant Staphylococcus aureus) Acute 04/16/15 Pneumonia Acute Sepsis without acute organ dysfunction Acute Shortness of breath Acute
[2016-12-17] MEDS ORDERED: REGADENOSON 0.4 MG/5 ML SYR IVP ONE (09:25)
[2016-12-17] MEDS: TIOTROPIUM INHALER 18 MCG/DOSE 5 DOSE/MDI IH SCH (09:50)
[2016-12-17] MEDS: ASPIRIN 81 MG CHEWABLE TAB PO SCH (11:26)
[2016-12-17] MEDS: ATORVASTATIN CALCIUM 40 MG TAB PO SCH (11:26)
[2016-12-17] MEDS: METOPROLOL TARTRATE 25 MG TAB PO SCH ×2 (11:26→21:53)
[2016-12-17] MEDS: PREGABALIN 50 MG CAP PO SCH ×3 (11:27→21:53)
[2016-12-17] MEDS: CALCIUM CARBONATE 500 MG CHEWABLE TAB PO SCH ×2 (11:28→21:55)
[2016-12-17] MEDS: CLOPIDOGREL BISULFATE 75 MG TAB PO SCH (11:28)
[2016-12-17] MEDS: NYSTATIN POWDER 15 GM BTL TP SCH ×3 (11:29→21:56)
[2016-12-17] MEDS: INSULIN GLARGINE 100 UNITS/ML SYRINGE SC SCH ×2 (11:34→21:53)
--- NOTE | 2016-12-17 11:47 | CPR ---
[f rep st] NONINVASIVE CARDIAC PROCEDURE REPORT DATE OF PROCEDURE: 12/17/2016 PROCEDURE: Lexiscan nuclear stress test. INDICATION: The patient is confused and therefore information was taken from her was taken from [employer]. She has multiple risk factors for coronary artery disease including end-stage renal disease, p rior CVA, hypertension, diabetes and peripheral vascular disease. Given her high risk for cardiovasc ular disease, the decision was made to proceed with a stress test. DESCRIPTION OF PROCEDURE: Consent was obtained and the patient was placed on continuous telemetry. Her resting EKG revealed sinus bradycardia with heart rate of 54, IN interval 188, QRS duration 92, a nd a QTc of 448. She has T-wave changes concerning for ischemia in the anterior and inferior leads. The patient was infused with Lexiscan and complained of shortness of breath. She remained in normal sinus rhythm throughout the study with persistent T-wave changes in the inferior and anterior leads. Her blood pressure at rest was 110/60 and remained stable throughout the procedure. Her oxygen sat uration remained at 100% throughout the study as well. She was given caffeine in the recovery phase with resolution in her symptoms. PLAN: Await nuclear images. /[id number]/MODL
--- NOTE | 2016-12-17 11:47 | CPR ---
[f rep st] NONINVASIVE CARDIAC PROCEDURE REPORT DATE OF PROCEDURE: 12/17/2016 PROCEDURE: Lexiscan nuclear stress test. INDICATION: The patient is confused and therefore information was taken from her was taken from [employer]. She has multiple risk factors for coronary artery disease including end-stage renal disease, p rior CVA, hypertension, diabetes and peripheral vascular disease. Given her high risk for cardiovasc ular disease, the decision was made to proceed with a stress test. DESCRIPTION OF PROCEDURE: Consent was obtained and the patient was placed on continuous telemetry. Her resting EKG revealed sinus bradycardia with heart rate of 54, RI interval 188, QRS duration 92, a nd a QTc of 448. She has T-wave changes concerning for ischemia in the anterior and inferior leads. The patient was infused with Lexiscan and complained of shortness of breath. She remained in normal sinus rhythm throughout the study with persistent T-wave changes in the inferior and anterior leads. Her blood pressure at rest was 110/60 and remained stable throughout the procedure. Her oxygen sat uration remained at 100% throughout the study as well. She was given caffeine in the recovery phase with resolution in her symptoms. PLAN: Await nuclear images. /[id number]/MODL
--- NOTE | 2016-12-17 11:47 | CPR ---
[f rep st] NONINVASIVE CARDIAC PROCEDURE REPORT DATE OF PROCEDURE: 12/17/2016 PROCEDURE: Lexiscan nuclear stress test. INDICATION: The patient is confused and therefore information was taken from her was taken from [employer]. She has multiple risk factors for coronary artery disease including end-stage renal disease, p rior CVA, hypertension, diabetes and peripheral vascular disease. Given her high risk for cardiovasc ular disease, the decision was made to proceed with a stress test. DESCRIPTION OF PROCEDURE: Consent was obtained and the patient was placed on continuous telemetry. Her resting EKG revealed sinus bradycardia with heart rate of 54, DE interval 188, QRS duration 92, a nd a QTc of 448. She has T-wave changes concerning for ischemia in the anterior and inferior leads. The patient was infused with Lexiscan and complained of shortness of breath. She remained in normal sinus rhythm throughout the study with persistent T-wave changes in the inferior and anterior leads. Her blood pressure at rest was 110/60 and remained stable throughout the procedure. Her oxygen sat uration remained at 100% throughout the study as well. She was given caffeine in the recovery phase with resolution in her symptoms. PLAN: Await nuclear images. /[id number]/MODL
[2016-12-17] MEDS: INSULIN REGULAR HUMAN 100 UNIT/ML SC SCH ×5 (12:28→21:26)
--- NOTE | 2016-12-17 16:54 | ASMTCMCOM ---
CM Note CM Note Notes: Plan remains the same, pt will dc back to [facility] when medically stable, updates faxed to Denis at . Date Signed: 12/17/2016 04:53 PM Electronically Signed By:Lily Nixon RN
--- NOTE | 2016-12-17 17:18 | PDCARPN ---
Cardiology Progress Note Chief Complaint: No cardiovascular complaints were voiced today Assessment/Plan: Assessment: 12-17-16 Stress testing was completed today which did not reveal any ischaemia or infarction patterns. Normal left ventricular systolic ejection fraction was also noted. In speaking with the patient this afternoon, the patient was without active cardiovascular complaints. There continues to be notable valve pathology, but is not likely to be the acute event with this current admission. Patient with antibiotic therapy started for the UTI. 12-16-16 Patient is a 71 y/o female, known to [facility] (Dr. Rosei Marinelli) in the outpatient setting, with history of DM (on insulin), HTN, CVA (two events), ESRD with HD three times per week, L BKA (secondary to PVD and DM history), COPD with lifelong tobacco use, and anemia of chronic disease, who presented [facility] with altered mental status. ER with findings suggestive of UTI and rhino virus (uncertain if active). Shortness of breath was a complaint by the patient , and today, post dialysis, she is feeling much better. No cardiovascular complaints of chest pains or pressure, no PND or orthopnea (at present). Altered mental status was noted and UA suggestive of aforementioned UTI. Echocardiogram with mild progression of her mitral valve pathology (currently moderate mitral stenosis and regurgitation), but normal (to hyperdynamic) left ventricular systolic ejection fraction. Diastolic dysfunction is present. In review of outpatient office note from May 2015, there had been discussion at that time about possible need for angiography, and if abnormalities were noted, consideration for PCI therapy, but further procedures such as CABG were felt to have a much greater mortality for the patient given comorbidities (DM, ESRD, COPD, and CVAs). Plan: (1) Would maintain antibiotic therapy for the UTI (2) Continue HD as scheduled (3) Would not pursue more invasive cardiovascular testing at this time given the results of the stress test (4) Should there be change in haemodynamic status, would reconsider further CV testing modalities, but at present, would refrain from doing so (5) Patient is not a good candidate for CT surgery options, and at present, her mitral valve pathology does not merit this discussion. Subjective: No cardiovascular complaints Reviewed/Discussed With: multidisciplinary team Objective: Vital Signs (8 Hrs) Temp Pulse Resp BP Pulse Ox 12/17/16 10:49 36.5 C 65 16 114/53 L 95 Intake/Output (24 Hrs) 12/16/16 12/17/16 12/18/16 05:59 05:59 05:59 Intake Total 250 Balance 250 Intake: Oral (ml) 250 Other: Weight 49.487 kg Intake Quantity Yes Yes Sufficient Number of Voids Bedside Commode 0 Number of Stools Bedside Commode 1 0 Result Diagrams: 12/17/16 04:50 12/17/16 04:50 Cardiac Labs: Cardiac Lab Results (72 Hrs) 12/16/16 04:55 Troponin I 0.034 - Physical Exam Constitutional: no apparent distress, obese, No general pain Eyes: PERRL, EOMI Ears, Nose, Mouth, Throat: moist mucous membranes Cardiovascular: regular rate and rhythm, systolic murmur Peripheral Pulses: 2+: dorsalis-pedis (R) Respiratory: clear to auscultate bilat, no crackles Gastrointestinal: normoactive bowel sounds Skin: no rashes Musculoskeletal: no muscular tenderness Neurologic: AAOx3, CN II-XII grossly intact Psychiatric: cooperative, interactive, following commands ICD10 Worksheet Patient Problems: Problems Problem Status Onset Altered mental status Acute Anemia Acute Chronic renal failure Acute ESRD (end stage renal disease) on dialysis Acute Elevated troponin Acute Urinary tract infection Acute Anemia Active Diabetes mellitus type 2 Active Dyslipidemia Active Hypothyroidism Active Acute hyponatremia Acute COPD exacerbation Acute Chronic Disease Mgmt/Transitional Care Acute Clostridium difficile infection Acute Congestive heart failure Acute Hypochloremia Acute Hypoxemia Acute MRSA (methicillin resistant Staphylococcus aureus) Acute 04/16/15 Pneumonia Acute Sepsis without acute organ dysfunction Acute Shortness of breath Acute
[2016-12-18] MEDS: HEPARIN 5,000 UNIT/0.5 ML SYR SC SCH ×3 (06:09→22:11)
[2016-12-18] MEDS: TIOTROPIUM INHALER 18 MCG/DOSE 5 DOSE/MDI IH SCH (09:20)
[2016-12-18] MEDS: INSULIN GLARGINE 100 UNITS/ML SYRINGE SC SCH ×4 (09:24→22:31)
[2016-12-18] MEDS: INSULIN REGULAR HUMAN 100 UNIT/ML SC SCH ×4 (09:25→22:32)
[2016-12-18] MEDS: ATORVASTATIN CALCIUM 40 MG TAB PO SCH (09:27)
[2016-12-18] MEDS: ASPIRIN 81 MG CHEWABLE TAB PO SCH (09:27)
[2016-12-18] MEDS: PREGABALIN 50 MG CAP PO SCH ×3 (09:27→22:10)
[2016-12-18] MEDS: CLOPIDOGREL BISULFATE 75 MG TAB PO SCH (09:27)
[2016-12-18] MEDS: CALCIUM CARBONATE 500 MG CHEWABLE TAB PO SCH ×3 (09:30→22:10)
[2016-12-18] MEDS: METOPROLOL TARTRATE 25 MG TAB PO SCH ×2 (09:31→22:15)
[2016-12-18] MEDS: NYSTATIN POWDER 15 GM BTL TP SCH ×3 (09:33→22:18)
--- NOTE | 2016-12-18 10:49 | HOSPPROG ---
Hospitalist Progress Note Assessment/Plan: 71 yo F w esrd, known pulm htn admitted with weakness post HD weakness: likely 2/2 rhinovirus infection, though also consider progressive valvular disease, seems to be back to baseline acute diastolic HF: still appears clinically volume up, CXR yest am stable minimal uop with high dose IV Lasix, which has been d/c'd volume removal by HD follow daily wt (dry wt appears to be ~77 kg) HD today MR: echo shows progressive MR, similarly elevated rvsp, tr worth re-evaluating when euvolemic cards following indet trop: ekg changes with inferior and anterior T wave inversions ( personally reviewed and interpreted), new from prior. Pt is chest pain free trop is flat / chronically elevated ~0.03 - 0.04, now normalized diurese via HD per renal lexiscan neg for ischemia ESRD: renal consulted, HD tue/thur/sat PVD with h/o BKA and CVA: cont DAPT COPD: stable Anemia of CKD: hgb 9.6, epo per renal UTI: UA marked pyuria and 4+ bacteria and pt endorses dysuria and urgency. UCx growing aerococcus >100K. Discussed with ID. This bug is sensitive to pure penicillins cont po amox, day 4/5 atbx proph: sc heparin dispo: inpatient, likely dc back to [facility] tomorrow Subjective: pt up in chair, feels okay. Denies CP or SOB. No fevers. eating ok. Objective: Vital Signs Temp Pulse Resp BP Pulse Ox 36.9 C 58 L 18 119/47 L 99 12/18/16 08:00 12/18/16 08:20 12/18/16 08:00 12/18/16 08:00 12/18/16 08:20 Laboratory Results 12/17/16 04:50 12/18/16 04:48 12/17/16 12/18/16 12/19/16 05:59 05:59 05:59 Intake Total 250 500 Balance 250 500 PT 14.4 SEC (12.0-15.0) 12/14/16 16:40 INR 1.13 (0.83-1.16) 12/14/16 16:40 - Physical Exam Constitutional: chronically ill appearing Eyes: PERRL Ears, Nose, Mouth, Throat: moist mucous membranes Cardiovascular: regular rate and rhythym Respiratory: no respiratory distress, inspiratory crackles Gastrointestinal: normoactive bowel sounds, soft, non-tender abdomen Skin: warm Musculoskeletal: other (LE BKA) Neurologic: AAOx3 Psychiatric: poor memory ICD10 Worksheet Patient Problems: Problems Problem Status Onset Altered mental status Acute Anemia Acute Chronic renal failure Acute ESRD (end stage renal disease) on dialysis Acute Elevated troponin Acute Urinary tract infection Acute Anemia Active Diabetes mellitus type 2 Active Dyslipidemia Active Hypothyroidism Active Acute hyponatremia Acute COPD exacerbation Acute Chronic Disease Mgmt/Transitional Care Acute Clostridium difficile infection Acute Congestive heart failure Acute Hypochloremia Acute Hypoxemia Acute MRSA (methicillin resistant Staphylococcus aureus) Acute 04/16/15 Pneumonia Acute Sepsis without acute organ dysfunction Acute Shortness of breath Acute
[2016-12-18] MEDS ORDERED: NS 100 ML IV PRN (14:26)
--- NOTE | 2016-12-18 15:55 | SOAPPROG ---
SOAP Progress Note Assessment/Plan: Assessment: The patient is a 71 y/o F with a h/o COPD still smoking, ESRD s/p RCC with nephrectomy, and CHD who presented on Tuesday with volume overload s/p fall at outside skilled nursing and possible UTI. 1. ESRD - -On HD T,,Tue -HD later today -access AVF, no issues -continue to UF -May be discharged after Tuesday run if other medical issues stable -Further HD at home HD unit [facility] 2. HTN/vol -mild CHF on CXR -still mildly hyponatremic 2/2 to hypervolemia -UF 2-3kg with HD -continue home meds -fluid restriction and diet discussed 3. Anemia -Hb at ESRD goal, on EPO as outpatient -monitor CBC 4. BMD -phos elevated, adjust Tums to be given with meals to function as phos binders -continue to monitor 5. COPD/nicotine abuse -smoking cessation -at baseline home O2 6. UTI ->100k aerococcus -on amox Plan: 12/18/16 15:56 12/18/16 16:00 Subjective: She reports chronic SOB, no acute changes or other complaints. Objective: Vital Signs Temp Pulse Resp BP Pulse Ox 36.9 C 58 L 20 115/53 L 96 12/18/16 12:00 12/18/16 12:00 12/18/16 12:00 12/18/16 12:00 12/18/16 12:00 Laboratory Results 12/17/16 04:50 12/18/16 04:48 12/17/16 12/18/16 12/19/16 05:59 05:59 05:59 Intake Total 250 500 Balance 250 500 PT 14.4 SEC (12.0-15.0) 12/14/16 16:40 INR 1.13 (0.83-1.16) 12/14/16 16:40 Physical Exam - Physical Exam General Appearance: WD/WN Respiratory: crackles (at bases b/l) Cardiac/Chest: regular rate, rhythm Abdomen: soft Extremities: swelling ICD10 Worksheet Patient Problems: Problems Problem Status Onset Altered mental status Acute Anemia Acute Chronic renal failure Acute ESRD (end stage renal disease) on dialysis Acute Elevated troponin Acute Urinary tract infection Acute Anemia Active Diabetes mellitus type 2 Active Dyslipidemia Active Hypothyroidism Active Acute hyponatremia Acute COPD exacerbation Acute Chronic Disease Mgmt/Transitional Care Acute Clostridium difficile infection Acute Congestive heart failure Acute Hypochloremia Acute Hypoxemia Acute MRSA (methicillin resistant Staphylococcus aureus) Acute 04/16/15 Pneumonia Acute Sepsis without acute organ dysfunction Acute Shortness of breath Acute
[2016-12-18] MEDS: MIDODRINE HCL 5 MG TAB PO SCH (16:43)
[2016-12-19] MEDS: HEPARIN 5,000 UNIT/0.5 ML SYR SC SCH (05:23)
[2016-12-19] MEDS: INSULIN REGULAR HUMAN 100 UNIT/ML SC SCH ×2 (08:34→12:49)
[2016-12-19] MEDS: NYSTATIN POWDER 15 GM BTL TP SCH (09:37)
[2016-12-19] MEDS: PREGABALIN 50 MG CAP PO SCH (09:38)
[2016-12-19] MEDS: ATORVASTATIN CALCIUM 40 MG TAB PO SCH (09:38)
[2016-12-19] MEDS: ASPIRIN 81 MG CHEWABLE TAB PO SCH (09:38)
[2016-12-19] MEDS: CLOPIDOGREL BISULFATE 75 MG TAB PO SCH (09:38)
[2016-12-19] MEDS: METOPROLOL TARTRATE 25 MG TAB PO SCH (09:39)
[2016-12-19] MEDS: CALCIUM CARBONATE 500 MG CHEWABLE TAB PO SCH (09:41)
--- NOTE | 2016-12-19 10:00 | SOAPPROG ---
SOAP Progress Note Assessment/Plan: Assessment: The patient is a 71 y/o F with a h/o COPD still smoking, ESRD s/p RCC with nephrectomy, and CHD who presented on Tuesday with volume overload s/p fall at outside halfway and possible UTI. 1. ESRD - -On HD T,Th,Sat -access AVF, no issues -continue to UF -Probably discharge today -Further HD at home HD unit [facility] 2. HTN/vol -mild CHF on CXR -still mildly hyponatremic 2/2 to hypervolemia -UF 3kg with last HD -Vol status appears improved today 3. Anemia -Hb at ESRD goal, on EPO as outpatient -monitor CBC 4. BMD -phos elevated, adjust Tums to be given with meals to function as phos binders -continue to monitor 5. COPD/nicotine abuse -smoking cessation -at baseline home O2 6. UTI ->100k aerococcus -on amox Plan: 12/19/16 10:00 12/19/16 10:00 Subjective: Pt feels well this morning. Tolerated HD well yesterday with 3kg removal. She reports some improvement in SOB. No new complaints. Objective: Vital Signs Temp Pulse Resp BP Pulse Ox 36.9 C 62 18 117/59 L 97 12/19/16 08:00 12/19/16 08:00 12/19/16 08:00 12/19/16 08:00 12/19/16 08:00 Laboratory Results 12/17/16 04:50 12/18/16 04:48 12/18/16 12/19/16 12/20/16 05:59 05:59 05:59 Intake Total 500 150 Balance 500 150 PT 14.4 SEC (12.0-15.0) 12/14/16 16:40 INR 1.13 (0.83-1.16) 12/14/16 16:40 Physical Exam - Physical Exam General Appearance: WD/WN, no apparent distress Respiratory: crackles (Few bibasilar) Cardiac/Chest: regular rate, rhythm Abdomen: non-tender, soft Extremities: other (s/p L BKA; RUE AVF +br/thrill), No swelling ICD10 Worksheet Patient Problems: Problems Problem Status Onset Altered mental status Acute Anemia Acute Chronic renal failure Acute ESRD (end stage renal disease) on dialysis Acute Elevated troponin Acute Urinary tract infection Acute Anemia Active Diabetes mellitus type 2 Active Dyslipidemia Active Hypothyroidism Active Acute hyponatremia Acute COPD exacerbation Acute Chronic Disease Mgmt/Transitional Care Acute Clostridium difficile infection Acute Congestive heart failure Acute Hypochloremia Acute Hypoxemia Acute MRSA (methicillin resistant Staphylococcus aureus) Acute 04/16/15 Pneumonia Acute Sepsis without acute organ dysfunction Acute Shortness of breath Acute
--- NOTE | 2016-12-19 10:15 | PDIAF ---
- Diagnosis Diagnosis: UTI, ESRD, HF Code Status: Full Code - Medication Management Discharge Medications: Medications to Continue on Transfer Acetaminophen [Tylenol 325mg (*)] 650 mg PO Q4 PRN 12/25/12 [Last Taken 03:08] Nitroglycerin [Nitrostat 0.4 mg (*)] 0.4 mg SL PRN PRN 12/25/12 [Last Taken 03/08] Oxycodone Ir [Oxy Ir 5 mg (RX)] 2.5 mg PO BID PRN 12/25/12 [Last Taken 12/14/16 06:00] Polyethylene Glycol 3350 [Miralax 17 gm (*)] 17 gm PO DAILY PRN 12/25/12 [Last Taken Unknown] Aspirin [Aspirin 81mg (*)] 81 mg PO DAILY 07/12/13 [Last Taken 12/14/16] Furosemide [Lasix 80 MG (*)] 80 mg PO BID 01/21/15 [Last Taken 12/14/16 11:00] Midodrine HCl 5 mg PO TUTHSA@0900 01/21/15 [Last Taken 12/14/16] Tiotropium Inhaler [Spiriva Handihaler] 18 mcg IH DAILY 01/21/15 [Last Taken ] Calcium Carbonate [Tums 500MG (*)] 1,000 mg PO DAILY PRN 04/14/15 [Last Taken ] Atorvastatin Calcium [Lipitor 80 mg] 80 mg PO DAILY 12/14/16 [Last Taken ] Calcium Carbonate [Tums 500MG (*)] 1,500 mg PO BID 12/14/16 [Last Taken 11:00] Clopidogrel Bisulfate [Clopidogrel] 75 mg PO DAILY 12/14/16 [Last Taken 12/13/16 ] Herbals/Supplements -Info Only 1 ea PO DAILY 12/14/16 [Last Taken Unknown] Insulin Glargine [Lantus 100 UNITS/ML (*)] 3 units SC DAILY 12/14/16 [Last Taken 12/14/16] Insulin Glargine [Lantus 100 UNITS/ML (*)] 5 units SC HS 12/14/16 [Last Taken ] Ipratropium/Albuterol [Duoneb (*)] 3 ml IH Q4H PRN 12/14/16 [Last Taken Unknown] Lactulose [Enulose] 30 gm PO BID PRN 12/14/16 [Last Taken Unknown] Magnesium Hydroxide [Milk of Magnesia] 30 ml PO DAILY 12/14/16 [Last Taken 12/06] Metoprolol Tartrate [Lopressor 25 mg (*)] 12.5 mg PO BID 12/14/16 [Last Taken 11:00] Nystatin Powder [Mycostatin Powder] 1 porfirio TP TID 12/14/16 [Last Taken 12/14/16 11:00] Pregabalin [Lyrica 50mg (*)] 50 mg PO TID 12/14/16 [Last Taken 12/14/16 11:00] Amoxicillin Trihydrate [Amoxil] 500 mg PO BID #3 cap 12/19/16 [Last Taken Unknown] Discharge Medications: Refer to the Discharge Home Medication list for PRN reason. PICC Care - Routine: N/A - Orders Services needed: Registered Nurse, Physical Therapy, Occupational Therapy Diet Recommendation: other (Renal diet) Additional: Continue usual [facility]. Follow up with PCP in 1-2 weeks - Follow Up Care Current Providers and Referrals: Patient,NotPresent [Unknown] - As per Instructions Maurizio Batista MD [Medical Doctor] -
--- NOTE | 2016-12-19 10:33 | WOCRNPDOC ---
WOCRN Advanced Assessment Note - Skin Integrity Problem, Advanced Assess Upper Gluteal Cleft Dermatitis Dressing Type: Allevyn Life Dressing Description: Intact Exudate Amount: Scant Exudate Color: Reddish/Yellow Exudate Characteristic(s): Serosanguinous Integumentary Issue Intervention: Dressing Removed, Barrier Cream Applied ( Calazime paste) Yessenia Wound Tissue: Blanching, Macerated (mild, along margins), Intact Yessenia Wound Swelling: None Wound Bed Color: Red Wound Bed Constitution: Smooth Tissue (red, non-granulating) Wound Edges: Well Defined Site Measurement - Head-to-Toe Length X Width X Depth (cm): 1cmx0.2cmx0.1cm Skin Integrity Problem Comment: Removed existing Allevyn Life dressing placed by nursing. Linear split noted in patient's upper intergluteal cleft, appearance consistent w/ intertriginous dermatitis from too much moisture and friction. Wound edges are mildly macerated r/t moisture. Periwound skin is intact and blanching throughout intergluteal cleft and buttocks. Applied Calazime skin protectant paste over this wound and to surrounding skin. Report given to franchise development manager Becky.
[2016-12-19] MEDS: TIOTROPIUM INHALER 18 MCG/DOSE 5 DOSE/MDI IH SCH (11:02)
--- NOTE | 2016-12-19 11:52 | ASDISCHSUM ---
Discharge Information Plan Status:Penitentiary Return Medically Cleared to Leave:12/19/2016 Discharge Date:12/19/2016 CM D/C Disposition:[facility] Facility ADT D/C Disposition:[facility] Facility Projected Discharge Date:12/18/2016 12:00 AM Transportation at D/C: Discharge Delay Reason: Follow-Up Date:12/18/2016 12:00 AM Discharge Slot: Final Diagnosis: Placement Information Referral Type:*Penitentiary/SNF Referral ID:[id number] Provider Name:Shantell Rodriguezulder Address 1:[address] Address 2: City:[place] Selection Factors: State:[place] Patient Contact Information Contact Name:RICKEY Relationship:Sister Address: [facility] City:[facility] Phone: State/Zip Code:[place] [address] Email: Financial Information Financial Class: Primary Plan Desc:MEDICARE INPATIENT Primary Plan Number:[id number] Secondary Plan Desc:MED[place] Secondary Plan Number:[id number] Assessment Information [facility] Initial CM Assessment Living Arrangements What is your living Answers: Alone arrangement? Who do you live with? Type Of Residence What kind of residence do Answers: [facility] Facility you live in? Type of Residence Facility Name Notes: [place] Discharge Plan Comments Coordination Status Comments Notes: Pt is a 71 y/o female admitted w/ UTI with sepsis. Pt lives at [place] and currently on dialysis. Pt will most likely d/c back to [place] when she is medically stable. CM available for d/c needs or changes. Date Signed: 12/15/2016 02:20 PM Electronically Signed By:MALORIE Singh [facility] CM Progress Note CM Note CM Note Notes: Plan remains the same, pt will dc back to [place] when medically stable, updates faxed to Denis at . Date Signed: 12/17/2016 04:53 PM Electronically Signed By:Lily Nixon RN Intervention Information Intervention Type:*SANTANA-Signed Date of Service:12/15/2016 11:17 AM Patient Type:Observation Staff Member:Ana Paula De Jesus Hours: Discipline: Severity: Comment:
--- NOTE | 2016-12-19 11:52 | ASDISCHSUM ---
Discharge Information Plan Status:Intermediate Return Medically Cleared to Leave:12/19/2016 Discharge Date:12/19/2016 CM D/C Disposition:[facility] Facility ADT D/C Disposition:[facility] Facility Projected Discharge Date:12/18/2016 12:00 AM Transportation at D/C: Discharge Delay Reason: Follow-Up Date:12/18/2016 12:00 AM Discharge Slot: Final Diagnosis: Placement Information Referral Type:*Intermediate/SNF Referral ID:[id number] Provider Name:Shantell Rodriguezulder Address 1:[address] Address 2: City:[place] Selection Factors: State:[place] Patient Contact Information Contact Name:RICKEY Relationship:Sister Address: [facility] City:[facility] Phone: State/Zip Code:[place] [address] Email: Financial Information Financial Class: Primary Plan Desc:MEDICARE INPATIENT Primary Plan Number:[id number] Secondary Plan Desc:MED[place] Secondary Plan Number:[id number] Assessment Information [facility] Initial CM Assessment Living Arrangements What is your living Answers: Alone arrangement? Who do you live with? Type Of Residence What kind of residence do Answers: [facility] Facility you live in? Type of Residence Facility Name Notes: [facility] Discharge Plan Comments Coordination Status Comments Notes: Pt is a 71 y/o female admitted w/ UTI with sepsis. Pt lives at [facility] and currently on dialysis. Pt will most likely d/c back to [facility] when she is medically stable. CM available for d/c needs or changes. Date Signed: 12/15/2016 02:20 PM Electronically Signed By:MALORIE Singh [facility] CM Progress Note CM Note CM Note Notes: Plan remains the same, pt will dc back to [facility] when medically stable, updates faxed to Denis at . Date Signed: 12/17/2016 04:53 PM Electronically Signed By:Lily Nixon RN Intervention Information Intervention Type:*SANTANA-Signed Date of Service:12/15/2016 11:17 AM Patient Type:Observation Staff Member:Ana Paula De Jesus Hours: Discipline: Severity: Comment:
--- NOTE | 2016-12-19 11:52 | ASDISCHSUM ---
Discharge Information Plan Status:Retirement Return Medically Cleared to Leave:12/19/2016 Discharge Date:12/19/2016 CM D/C Disposition:Assisted Facility ADT D/C Disposition:Assisted Facility Projected Discharge Date:12/18/2016 12:00 AM Transportation at D/C: Discharge Delay Reason: Follow-Up Date:12/18/2016 12:00 AM Discharge Slot: Final Diagnosis: Placement Information Referral Type:*Retirement/SNF Referral ID:[id number] Provider Name:Shantell Rodriguezulder Address 1:[address] Address 2: City:[place] Selection Factors: State:[place] Patient Contact Information Contact Name:RICKEY Relationship:Sister Address: [facility] City:[facility] Phone: State/Zip Code:[place] [address] Email: Financial Information Financial Class: Primary Plan Desc:MEDICARE INPATIENT Primary Plan Number:[id number] Secondary Plan Desc:MED[place] Secondary Plan Number:[id number] Assessment Information [facility] Initial CM Assessment Living Arrangements What is your living Answers: Alone arrangement? Who do you live with? Type Of Residence What kind of residence do Answers: Assisted Facility you live in? Type of Residence Facility Name Notes: [facility] Discharge Plan Comments Coordination Status Comments Notes: Pt is a 71 y/o female admitted w/ UTI with sepsis. Pt lives at [facility] and currently on dialysis. Pt will most likely d/c back to [facility] when she is medically stable. CM available for d/c needs or changes. Date Signed: 12/15/2016 02:20 PM Electronically Signed By:MALORIE Singh [facility] CM Progress Note CM Note CM Note Notes: Plan remains the same, pt will dc back to [facility] when medically stable, updates faxed to Denis at . Date Signed: 12/17/2016 04:53 PM Electronically Signed By:Lily Nixon RN Intervention Information Intervention Type:*SANTANA-Signed Date of Service:12/15/2016 11:17 AM Patient Type:Observation Staff Member:Ana Paula De Jesus Hours: Discipline: Severity: Comment:
[2016-12-19 12:15] VITALS: BP 107/51; PULSE 60; RESP 20; TEMP 99.3; O2SAT 96
--- NOTE | 2016-12-19 14:46 | GDS ---
[f rep st] DISCHARGE SUMMARY DISCHARGE DIAGNOSES: 1. Metabolic encephalopathy, likely secondary to viral upper respiratory infection and urinary tract infection, resolved. 2. Urinary tract infection. Urine culture grew greater than 100,000 aerococcus. 3. Viral upper respiratory infection with respiratory PCR positive for rhinovirus and enterovirus. 4. Acute diastolic heart failure. 5. Progressive mitral regurgitation. 6. Abnormal EKG, with a nuclear medicine study negative for ischemia. 7. End-stage renal disease. 8. Peripheral vascular disease with history of below-knee amputation. 9. History of cerebrovascular accident. 10. Chronic obstructive pulmonary disease, stable. 11. Anemia of chronic kidney disease. PROCEDURES: 1. Echocardiogram December 14 showed a diastolic dysfunction, with a vjbb-eb-rgvisheeyd dilated rig ht ventricle, moderately dilated left atrium, moderate mitral valve stenosis, and moderate mitral araceli ve regurgitation, with severe posterior mitral calcification. Her mitral valve findings have progres sed from her prior study, and her right ventricular systolic pressure is 68 to 73[address] 2[address] Head [address] December 14, 2016, was negative for intracranial process. 3. Cervical spine CT December 14, 2016, showed no fracture or dislocation. 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 A nuclear medicine myocardial perfusion scan December 17, 2016, david wed normal perfusion, with no evidence of stress-induced ischemia, with normal myocardial contractili ty, and a calculated ejection fraction of 96%, which is likely overestimated. HISTORY: For details, please see the History and Physical dated December 14, 2016. In brief, Ms. Marcus wolf is 71-year-old female with a history of end-stage renal disease, valvular heart disease, type 2 diabetes, and COPD, who presents to the emergency department with somnolence from her skilled [facility] facility, [place]. She was admitted to the hospital for further evaluation and management. HOSPITAL COURSE: Patient was admitted to medical/surgical unit. Her respiratory viral PCR was posit tayla for rhinovirus and enterovirus. In addition, she had an abnormal urinalysis, and her urine cultu re grew greater than 100,000 aerococcus. She did endorse symptoms, and was treated initially with IV ceftriaxone, which was transitioned to oral amoxicillin. She will complete 5 days of therapy. She was given supportive care for her viral upper respiratory infection. In addition, she appeared volum e overloaded, was treated with IV Lasix, but ultimately required ongoing dialysis for volume removal. Her volume status is improved on day of discharge. She will need to continue her usual outpatient dialysis regimen of Tuesday, , Tuesday. She was noted to have some EKG changes, which were new from her previous, and underwent stress testing, which was negative as above. Her blood sugars w ere well controlled. Her COPD was stable. DISPOSITION: Patient is discharged back to her [facility] facility in stable condition. FOLLOWUP: 1. Primary care. 2. Dr. Maurizio Batista, [facility], for followup on her heart disease and diastolic heart fail ure. 3. [facility] for end-stage renal disease and ongoing dialysis needs. DISCHARGE MEDICATIONS: Please see [employer] for completed outpatient medication list. New medication s on discharge include amoxicillin 500 mg p.o. b.i.d. for 3 more doses, to complete a total of 5 days of antibiotic therapy for an uncomplicated UTI. She will continue all of her outpatient medications as previously prescribed. I discontinued her Levaquin 125 mg daily. It is unclear why she was on t his. With her end-stage renal disease, this would be a treatment dose, and I do not see a need for t hat going forward, as she is being treated with amoxicillin for her UTI as above. This should be rev isited by her primary care physician, as there may be some other reason why she takes this, of which I am not aware. /[id number]/MODL
--- NOTE | 2016-12-19 14:46 | GDS ---
[f rep st] DISCHARGE SUMMARY DISCHARGE DIAGNOSES: 1. Metabolic encephalopathy, likely secondary to viral upper respiratory infection and urinary tract infection, resolved. 2. Urinary tract infection. Urine culture grew greater than 100,000 aerococcus. 3. Viral upper respiratory infection with respiratory PCR positive for rhinovirus and enterovirus. 4. Acute diastolic heart failure. 5. Progressive mitral regurgitation. 6. Abnormal EKG, with a nuclear medicine study negative for ischemia. 7. End-stage renal disease. 8. Peripheral vascular disease with history of below-knee amputation. 9. History of cerebrovascular accident. 10. Chronic obstructive pulmonary disease, stable. 11. Anemia of chronic kidney disease. PROCEDURES: 1. Echocardiogram December 14 showed a diastolic dysfunction, with a awzq-iv-oraynyycjy dilated rig ht ventricle, moderately dilated left atrium, moderate mitral valve stenosis, and moderate mitral araceli ve regurgitation, with severe posterior mitral calcification. Her mitral valve findings have progres sed from her prior study, and her right ventricular systolic pressure is 68 to [address] December 14, 2016, was negative for intracranial process. 3. Cervical spine CT December 14, 2016, showed no fracture or dislocation. 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 A nuclear medicine myocardial perfusion scan December 17, 2016, david wed normal perfusion, with no evidence of stress-induced ischemia, with normal myocardial contractili ty, and a calculated ejection fraction of 96%, which is likely overestimated. HISTORY: For details, please see the History and Physical dated December 14, 2016. In brief, Ms. Marcus wolf is 71-year-old female with a history of end-stage renal disease, valvular heart disease, type 2 diabetes, and COPD, who presents to the emergency department with somnolence from her skilled [facility] facility, [place]. She was admitted to the hospital for further evaluation and management. HOSPITAL COURSE: Patient was admitted to medical/surgical unit. Her respiratory viral PCR was posit tayla for rhinovirus and enterovirus. In addition, she had an abnormal urinalysis, and her urine cultu re grew greater than 100,000 aerococcus. She did endorse symptoms, and was treated initially with IV ceftriaxone, which was transitioned to oral amoxicillin. She will complete 5 days of therapy. She was given supportive care for her viral upper respiratory infection. In addition, she appeared volum e overloaded, was treated with IV Lasix, but ultimately required ongoing dialysis for volume removal. Her volume status is improved on day of discharge. She will need to continue her usual outpatient dialysis regimen of Tuesday, , Tuesday. She was noted to have some EKG changes, which were new from her previous, and underwent stress testing, which was negative as above. Her blood sugars w ere well controlled. Her COPD was stable. DISPOSITION: Patient is discharged back to her custodial facility in stable condition. FOLLOWUP: 1. Primary care. 2. Dr. Maurizio Batista, [facility], for followup on her heart disease and diastolic heart fail ure. 3. [facility] for end-stage renal disease and ongoing dialysis needs. DISCHARGE MEDICATIONS: Please see [employer] for completed outpatient medication list. New medication s on discharge include amoxicillin 500 mg p.o. b.i.d. for 3 more doses, to complete a total of 5 days of antibiotic therapy for an uncomplicated UTI. She will continue all of her outpatient medications as previously prescribed. I discontinued her Levaquin 125 mg daily. It is unclear why she was on t his. With her end-stage renal disease, this would be a treatment dose, and I do not see a need for t hat going forward, as she is being treated with amoxicillin for her UTI as above. This should be rev isited by her primary care physician, as there may be some other reason why she takes this, of which I am not aware. /[id number]/MODL
--- NOTE | 2016-12-19 14:46 | GDS ---
[f rep st] DISCHARGE SUMMARY DISCHARGE DIAGNOSES: 1. Metabolic encephalopathy, likely secondary to viral upper respiratory infection and urinary tract infection, resolved. 2. Urinary tract infection. Urine culture grew greater than 100,000 aerococcus. 3. Viral upper respiratory infection with respiratory PCR positive for rhinovirus and enterovirus. 4. Acute diastolic heart failure. 5. Progressive mitral regurgitation. 6. Abnormal EKG, with a nuclear medicine study negative for ischemia. 7. End-stage renal disease. 8. Peripheral vascular disease with history of below-knee amputation. 9. History of cerebrovascular accident. 10. Chronic obstructive pulmonary disease, stable. 11. Anemia of chronic kidney disease. PROCEDURES: 1. Echocardiogram December 14 showed a diastolic dysfunction, with a apow-ef-kmkgqadgal dilated rig ht ventricle, moderately dilated left atrium, moderate mitral valve stenosis, and moderate mitral araceli ve regurgitation, with severe posterior mitral calcification. Her mitral valve findings have progres sed from her prior study, and her right ventricular systolic pressure is 68 to [address] December 14, 2016, was negative for intracranial process. 3. Cervical spine CT December 14, 2016, showed no fracture or dislocation. 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 A nuclear medicine myocardial perfusion scan December 17, 2016, david wed normal perfusion, with no evidence of stress-induced ischemia, with normal myocardial contractili ty, and a calculated ejection fraction of 96%, which is likely overestimated. HISTORY: For details, please see the History and Physical dated December 14, 2016. In brief, Ms. Marcus wolf is 71-year-old female with a history of end-stage renal disease, valvular heart disease, type 2 diabetes, and COPD, who presents to the emergency department with somnolence from her skilled [facility] facility, [place]. She was admitted to the hospital for further evaluation and management. HOSPITAL COURSE: Patient was admitted to medical/surgical unit. Her respiratory viral PCR was posit tayla for rhinovirus and enterovirus. In addition, she had an abnormal urinalysis, and her urine cultu re grew greater than 100,000 aerococcus. She did endorse symptoms, and was treated initially with IV ceftriaxone, which was transitioned to oral amoxicillin. She will complete 5 days of therapy. She was given supportive care for her viral upper respiratory infection. In addition, she appeared volum e overloaded, was treated with IV Lasix, but ultimately required ongoing dialysis for volume removal. Her volume status is improved on day of discharge. She will need to continue her usual outpatient dialysis regimen of Tuesday, , Tuesday. She was noted to have some EKG changes, which were new from her previous, and underwent stress testing, which was negative as above. Her blood sugars w ere well controlled. Her COPD was stable. DISPOSITION: Patient is discharged back to her senior living facility in stable condition. FOLLOWUP: 1. Primary care. 2. Dr. Maurizio Batista, [facility], for followup on her heart disease and diastolic heart fail ure. 3. [facility] for end-stage renal disease and ongoing dialysis needs. DISCHARGE MEDICATIONS: Please see [employer] for completed outpatient medication list. New medication s on discharge include amoxicillin 500 mg p.o. b.i.d. for 3 more doses, to complete a total of 5 days of antibiotic therapy for an uncomplicated UTI. She will continue all of her outpatient medications as previously prescribed. I discontinued her Levaquin 125 mg daily. It is unclear why she was on t his. With her end-stage renal disease, this would be a treatment dose, and I do not see a need for t hat going forward, as she is being treated with amoxicillin for her UTI as above. This should be rev isited by her primary care physician, as there may be some other reason why she takes this, of which I am not aware. /[id number]/MODL
== END 2016-12-19 12:48 | DRG 291 ==
LOC: EDUNIT# → F3E 18:33 → OBSVTOIN 12-15 17:25
PROVIDERS: ADMIT Internal Medicine; ATTEND Internal Medicine
PROC: 5A1D70Z Performance of Urinary Filtration, Intermittent, Less than 6 Hours Per Day (ICD-10-PCS; principal; 2016-12-16)
CPT/HCPCS: 82947-QW; 92523-GN; 96374; 97110-GP; 97161-GP; 97166-GO; 97530-GO; 97530-GP; 97535-GO; A9500; G0378; G8978-GP-CM; G8979-GP-CK; G8987-GO-CK; G8988-GO-CJ; G9165-GN-CH; G9166-GN-CH; G9167-GN-CH; J0696; J1815; J1940; J2785

== ENCOUNTER 2017-03-21 18:49 | Inpatient (IN) | payer OTHER, MEDICAID ==
--- NOTE | 2017-03-21 19:06 | EDPHY ---
H & P Stated Complaint: finger infection Time Seen by Provider: 03/21/17 19:06 HPI/ROS: CHIEF COMPLAINT: Right index finger erythema HISTORY OF PRESENT ILLNESS: The patient presents to the ED for evaluation of right index finger erythema. It has been present for several weeks. She was initially treated with Keflex. She developed a draining blister several days ago which was cultured and grew MRSA. The patient was started on doxycycline at that point time. She presents today complaining of increased pain redness and swelling. The patient has a history of end-stage renal disease and is on dialysis. The patient also has a history of diabetes mellitus. She currently lives at No Name. The patient denies any obvious precipitating trauma. She denies prior history of recent skin infection. REVIEW OF SYSTEMS: A comprehensive 10 point review of systems is otherwise negative aside from elements mentioned in the history of present illness. Source: Patient Exam Limitations: No limitations - Personal History Current Tetanus Diphtheria and Acellular Pertussis (TDAP): Yes Tetanus Vaccine Date: 2011 - Medical/Surgical History Hx Asthma: No Hx Chronic Respiratory Disease: Yes Hx Diabetes: Yes Hx Cardiac Disease: Yes Hx Renal Disease: Yes Hx Cirrhosis: No Hx Alcoholism: No Hx HIV/AIDS: No Hx Splenectomy or Spleen Trauma: No Other PMH: Left BKA, end-stage renal disease, on dialysis, CVA, DM type 2, HTN, hyperlipidemia, CHF with diastolic dysfunction, Graves disease, renal cell carcinoma s/p resection, fibromyalgia, GERD, carotid stenosis, pneumonia, mitral regurgitation and tricuspid regurgitation, CAD - Social History Smoking Status: Current every day smoker - Physical Exam Exam: General Appearance: Elderly female, deconditioned Eyes: Pupils equal and round no pallor or injection ENT, Mouth: Mucous membranes moist, poor dentition Respiratory: There are no retractions, lungs are clear to auscultation Cardiovascular: Regular rate and rhythm Gastrointestinal: Abdomen is soft and nontender, no masses, bowel sounds normal Neurological: A&O, normal motor function, normal sensory exam, normal cranial nerves Skin: Warm and dry, no rashes Musculoskeletal: Neck is supple nontender Extremities: Left BKA, erythema redness and soft tissue swelling noted along the right index finger, no tenderness along the flexor tendon on the palmar surface of the hand. No discharge, Constitutional: Initial Vital Signs Temperature (C) 36.9 C 01/29/18 18:55 Heart Rate 68 03/21/17 18:55 Respiratory Rate 16 03/21/17 18:55 Blood Pressure 148/69 H 03/21/17 18:55 O2 Sat (%) 98 03/21/17 18:55 O2 Delivery Mode Room Air Allergies/Adverse Reactions: adhesive Allergy (Verified 07/12/13 12:29) hydrocodone Allergy (Verified 04/14/15 15:43) hydrocortisone [From Hydrocortone] Allergy (Verified 07/12/13 12:29) hydrocortisone acetate [From Hydrocortone] Allergy (Verified 07/12/13 12:29) hydrocortisone sod phosphate [From Hydrocortone] Allergy (Verified 07/12/13 12: 29) Sulfa (Sulfonamide Antibiotics) Allergy (Verified 07/12/13 12:29) Home Medications: Medication Instructions Recorded Acetaminophen [Tylenol 325mg (*)] 650 mg PO Q4 PRN 12/25/12 Nitroglycerin [Nitrostat 0.4 mg 0.4 mg SL PRN PRN 12/25/12 (*)] Oxycodone Ir [Oxy Ir 5 mg (RX)] 2.5 mg PO BID PRN 12/25/12 Polyethylene Glycol 3350 [Miralax 17 gm PO DAILY PRN 12/25/12 17 gm (*)] Aspirin [Aspirin 81mg (*)] 81 mg PO DAILY 07/12/13 Furosemide [Lasix 80 MG (*)] 80 mg PO BID 01/21/15 Midodrine HCl 5 mg PO TUTHSA@0900 01/21/15 Tiotropium Inhaler [Spiriva 18 mcg IH DAILY 01/21/15 Handihaler] Calcium Carbonate [Tums 500MG (*)] 1,000 mg PO DAILY PRN 04/14/15 Atorvastatin Calcium [Lipitor 80 80 mg PO DAILY 12/14/16 mg] Calcium Carbonate [Tums 500MG (*)] 1,500 mg PO BID 12/14/16 Clopidogrel Bisulfate [Clopidogrel] 75 mg PO DAILY 12/14/16 Herbals/Supplements -Info Only 1 ea PO DAILY 12/14/16 Insulin Glargine [Lantus 100 3 units SC DAILY 12/14/16 UNITS/ML (*)] Insulin Glargine [Lantus 100 5 units SC HS 12/14/16 UNITS/ML (*)] Ipratropium/Albuterol [Duoneb (*)] 3 ml IH Q4H PRN 12/14/16 Lactulose [Enulose] 30 gm PO BID PRN 12/14/16 Magnesium Hydroxide [Milk of 30 ml PO DAILY 12/14/16 Magnesia] Metoprolol Tartrate [Lopressor 25 12.5 mg PO BID 12/14/16 mg (*)] Nystatin Powder [Mycostatin Powder] 1 porfirio TP TID 12/14/16 Pregabalin [Lyrica 50mg (*)] 50 mg PO TID 12/14/16 Amoxicillin Trihydrate [Amoxil] 500 mg PO BID #3 cap 12/19/16 Medical Decision Making ED Course/Re-evaluation: The patient presents to the ED with a MRSA cellulitis and possible septic arthritis involving the 2nd DIP joint. The patient has no evidence of lymphangitis or obvious ascending flexor tenosynovitis. The patient had blood cultures x2 obtained. She will be started on IV vancomycin. The patient will require admission to the hospital given her progressive symptoms not improve with oral antibiotics. Consultation was made with Dr. Chase from the hospitalist service. Nephrology has been notified of the patient's admission. Dr. Strauss is notified of the patient's admission to the hospital. I consulted Dr. Lane from Hand surgery and he will evaluate the patient on the inpatient unit. The patient should be kept NPO after midnight. They will see the patient tomorrow Differential Diagnosis: Differential diagnosis considered includes septic arthritis, flexor tenosynovitis, cellulitis, abscess - Data Points Laboratory Results: Laboratory Results 03/21/17 19:31 03/21/17 19:31 03/21/17 03/21/17 19:31 19:31 WBC 8.96 10^3/uL 10^3/uL (3.80-9.50) RBC 3.66 10^6/uL L 10^6/uL (4.18-5.33) Hgb 10.5 g/dL L g/dL (12.6-16.3) Hct 31.8 % L % (38.0-47.0) MCV 86.9 fL fL (81.5-99.8) MCH 28.7 pg pg (27.9-34.1) MCHC 33.0 g/dL g/dL (32.4-36.7) RDW 16.6 % H % (11.5-15.2) Plt Count 251 10^3/uL 10^3/uL (150-400) MPV 11.6 fL fL (8.7-11.7) Neut % (Auto) 68.1 % % (39.3-74.2) Lymph % (Auto) 19.4 % % (15.0-45.0) Burke % (Auto) 8.6 % % (4.5-13.0) Eos % (Auto) 2.1 % % (0.6-7.6) Baso % (Auto) 1.1 % % (0.3-1.7) Nucleat RBC Rel Count 0.0 % % (0.0-0.2) Absolute Neuts (auto) 6.10 10^3/uL 10^3/uL (1.70-6.50) Absolute Lymphs (auto) 1.74 10^3/uL 10^3/uL (1.00-3.00) Absolute Monos (auto) 0.77 10^3/uL 10^3/uL (0.30-0.80) Absolute Eos (auto) 0.19 10^3/uL 10^3/uL (0.03-0.40) Absolute Basos (auto) 0.10 10^3/uL 10^3/uL (0.02-0.10) Absolute Nucleated RBC 0.00 10^3/uL 10^3/uL (0-0.01) Immature Gran % 0.7 % % (0.0-1.1) Immature Gran # 0.06 10^3/uL 10^3/uL (0.00-0.10) Sodium 130 mEq/L L mEq/L (135-145) Potassium 5.3 mEq/L H mEq/L (3.5-5.2) Chloride 85 mEq/L L mEq/L (97-110) Carbon Dioxide 28 mEq/l mEq/l (22-31) Anion Gap 17 mEq/L H mEq/L (8-16) BUN 69 mg/dL H mg/dL (7-23) Creatinine 4.3 mg/dL H mg/dL (0.6-1.0) Estimated GFR 10 Glucose 167 mg/dL H mg/dL (70-100) Calcium 10.0 mg/dL mg/dL (8.5-10.4) Medications Given: Discontinued Medications Sodium Chloride (Ns) 1,000 mls @ 0 mls/hr IV ONCE ONE; Wide Open PRN Reason: Protocol Stop: 03/21/17 19:17 Last Admin: 03/21/17 19:41 Dose: 1,000 mls Departure - Departure Disposition: [facility] Inpatient Acute Clinical Impression: MRSA (methicillin resistant Staphylococcus aureus), Diabetes mellitus type 2, ESRD (end stage renal disease) on dialysis, Cellulitis of finger of right hand Condition: Fair
[2017-03-21] MEDS ORDERED: NS 1,000 ML IV ONE (19:16)
[2017-03-21] MEDS ORDERED: VANCOMYCIN HCL/NORMAL SALINE 250 ML IV ONE (19:28)
[2017-03-21 19:40] LABS: PLATELET COUNT 251 10^3/uL (150-400)
[2017-03-21] MEDS ORDERED: ONDANSETRON 4 MG/2 ML VIAL IVP PRN (19:46)
[2017-03-21] MEDS ORDERED: VANCOMYCIN 1 GM in D5W 250 ML IV ONE (20:00)
[2017-03-21] MEDS ORDERED: IPRATROPIUM/ALBUTEROL 3 ML DEYVIAL IH PRN (21:41)
[2017-03-21] MEDS ORDERED: POLYETHYLENE GLYCOL 3350 17 GM PKT PO PRN (21:41)
[2017-03-21] MEDS ORDERED: NITROGLYCERIN 0.4 MG BTL SL PRN (21:41)
[2017-03-21] MEDS ORDERED: CALCIUM POLYCARBOPHIL 625 MG PO PRN (21:41)
[2017-03-21] MEDS ORDERED: MAGNESIUM HYDROXIDE 30 ML UDCUP PO PRN (21:41)
[2017-03-21] MEDS ORDERED: D50W 25 GM/50 ML SYR IVP PRN (21:46)
[2017-03-21] MEDS ORDERED: HEPARIN 5,000 UNIT/0.5 ML SYR SC SCH (22:00)
--- NOTE | 2017-03-21 22:05 | GHP ---
[f rep st] HISTORY AND PHYSICAL DATE OF ADMISSION: 03/21/2017 CHIEF COMPLAINT: Hand pain. HISTORY OF PRESENT ILLNESS: This is a 71-year-old female with a history of end-stage renal disease a nd diabetes, who presents with progression of a right index finger cellulitis and wound. The patient has been followed closely in the outpatient setting for what began as an ulceration with blistering and purulence. The patient was initially treated with Keflex. The wound was cultured and grew MRSA. She was switched to doxycycline at that point. She presented to the emergency department from [place] today with marked progression of erythema from the site of the initial blistering and purulenc e now extending up the length of the finger from the tip to now the palm. The patient has marked swe lling of this digit, as well as limited range of motion secondary to pain. The patient denies any johnson bjective fevers or chills. Denies any streaking up her arms. Denies any nausea or vomiting. She ga s been tolerating p.o. without complication. She denies any recent changes in her stools. Denies an y chest pain, denies shortness of breath, denies cough. She has been tolerating her home medications without complication. PAST MEDICAL HISTORY: 1. Diabetes. 2. End-stage renal disease, hemodialysis dependent. 3. COPD, on chronic oxygen. 4. Chronic diastolic heart failure. 5. Peripheral vascular disease status post lower extremity amputation. 6. Renal cell carcinoma status post resection. 7. History of a CVA with chronic aphasia. 8. Fibromyalgia. 9. Gastroesophageal reflux disease. 10. Carotid stenosis. 11. Graves disease. 12. Hyperlipidemia. 13. Hypertension. SOCIAL HISTORY: Lives at [place]. Denies alcohol. Was a previous smoker. Does not actively smo ke. Denies illicit drugs or marijuana. ADVANCED DIRECTIVES: Full resuscitation per her MOST form. FAMILY HISTORY: Positive for diabetes. REVIEW OF SYSTEMS: A 10 point review of systems is negative with the exception of that reported in t he HPI. PHYSICAL EXAMINATION: VITAL SIGNS: Blood pressure 149/61, heart rate 61, respiratory rate 18, 95% o n room air, 36.6. GENERAL: This is a pleasant elderly female, sitting up in bed. HEENT: Exam was notable for dry mucous membranes. Eye exam is negative for any icterus. CARDIAC: Patient is regula r rate and rhythm. A systolic murmur is appreciated. PULMONARY: Clear to auscultation bilaterally. GASTROINTESTINAL: Positive bowel sounds. Abdomen is soft and nontender. MUSCULOSKELETAL: Negati ve for lower extremity edema. Her left BKA stump is well healed. Her right index finger is markedly swollen. The rest of her digits appear normal. SKIN: There is erythema from the tip of her finger to her MTP joint of the right index finger with a clear wound over the distal MCP joint. NEUROLOGIC : She is alert and oriented x3. PSYCHIATRIC: She is pleasant and cooperative on interview and exam ination. LABORATORY DATA: White count 8.9, hematocrit 31.8, platelet count of 251. Sodium 130, potassium 5.3 , creatinine 4.3, blood glucose 167. EKG from her prior hospitalization, which I personally reviewed and interpreted shows sinus rhythm. ASSESSMENT AND PLAN: This is a 71-year-old female presenting with right index finger cellulitis. 1. Acute right index finger cellulitis. Patient does have pain with motion of the finger. Would qu binta concern for tenosynovitis. I have initiated intravenous vancomycin. Blood cultures have been ob tained from the emergency department, and the orthopedic surgeon has been consulted Dr. Laguna from [facility] emergency department for evaluation. Will wait on additional imaging until her evaluation. Hand surgery Dr. Lane was consulted from the emergency department. The patient will be kept n.p.o. after midnight tonight until their evaluation in the morning. 2. End-stage renal disease. Nephrology has been consulted from the emergency department for ongoing hemodialysis. Will continue her chronic home medications. 3. Hyperkalemia. Query whether this is secondary to hemolysis. Will repeat in the morning. 4. Hyponatremia, chronic. Suspect secondary to end-stage renal disease. Will monitor. 5. Hypothyroidism. Will continue patient's levothyroxine. 6. Hypertension. Will continue patient's home medications. 7. Prophylaxis. Will place sequential compression devices while patient is n.p.o. for surgical eval uation. 8. Diet. Renal, then n.p.o. after midnight. 9. Disposition. I expect greater than 2 midnights. The patient is presenting with a progressive ce llulitis of the right hand requiring hand surgery evaluation, intravenous antibiotics, and close aria toring. I discussed the case with the emergency room physician. Patient will be triaged to the [facility]-surgical floor for care. /[id number]/MODL
[2017-03-21] MEDS: PREGABALIN 50 MG CAP PO SCH (23:29)
[2017-03-21] MEDS: CALCIUM CARBONATE 500 MG CHEWABLE TAB PO SCH (23:29)
[2017-03-22] MEDS: LEVOTHYROXINE 125 MCG TAB PO SCH (05:29)
--- NOTE | 2017-03-22 05:36 | SOAPPROG ---
SOAP Progress Note Assessment/Plan: Assessment/Plan: R index finger cellulitis/tenosynovitis -Cont NPO status -Cont current pain regimen -Cont vanco as ordered, previous culture MRSA+ -Cont to monitor blood cultures -Will obtain plain films of R index finger and R hand -Cont SCDs for VTE mechanical prophylaxis -Dr. Lane will eval later today for possible surgical intervention 03/22/17 05:36 Subjective: Consult note dictated Objective: Vital Signs Temp Pulse Resp BP Pulse Ox 35.4 C L 54 L 18 115/55 L 94 03/21/17 23:41 03/21/17 23:41 03/21/17 23:41 03/21/17 23:41 03/21/17 23:41 ICD10 Worksheet Patient Problems: Problems Problem Status Onset Cellulitis of finger of right hand Acute Diabetes mellitus type 2 Acute ESRD (end stage renal disease) on dialysis Acute MRSA (methicillin resistant Staphylococcus aureus) Acute 04/16/15 Anemia Active Dyslipidemia Active Hypothyroidism Active Acute hyponatremia Acute Altered mental status Acute Anemia Acute COPD exacerbation Acute Chronic Disease Mgmt/Transitional Care Acute Chronic renal failure Acute Clostridium difficile infection Acute Congestive heart failure Acute Elevated troponin Acute Hypochloremia Acute Hypoxemia Acute Pneumonia Acute Sepsis without acute organ dysfunction Acute Shortness of breath Acute Urinary tract infection Acute
[2017-03-22 05:50] LABS: PLATELET COUNT 211 10^3/uL (150-400)
[2017-03-22] MEDS: TIOTROPIUM INHALER 18 MCG/DOSE 5 DOSE/MDI IH SCH ×2 (08:46→12:02)
--- NOTE | 2017-03-22 08:57 | GCON ---
[f rep st] CONSULTATION ORTHOPEDIC HAND SURGERY CONSULTATION. CHIEF COMPLAINT: Right index finger erythema. HISTORY OF PRESENT ILLNESS: The patient is a pleasant 71-year-old female who initially presented to the [facility] emergency department on 03/21/2017, with a progression of a right index finger cellulitis and a dorsal wound over her distal phalanx of the right index finger. The patient had previously been followed closely in the outpatient setting, noted that she lives at [place], and was being treated by the physician on staff there. Today, the patient relates a progression of events starting several months ago with a non-traumatic wound located over the proximal phalanx of the right index finger. The patient does not recall how she got this injury. She notes that this injury was very slow to heal, but had eventually healed, though she believes that she had continued redness and mild discomfort in her finger since. Over the past several weeks, the patient notes that her erythema gradually worsened, initially treated with Keflex at [place]. She subsequently developed a draining blister several days ago over the dorsal surface of her distal phalanx of her right index finger, which was subsequently cultured and grew MRSA today. At that time, the patient was started on doxycycline; however, the patient did not seem to respond to this medication well, and presented with increased pain, redness, and swelling of the right index finger. Upon presentation to the [facility] emergency department last evening, a marked progression of erythema was noted from the site of the initial blistering with purulence now extending approximately to the MCP joint. The patient was noted to have a limited ROM at that time, secondary to pain. The patient continues to deny any fevers, chills, nausea, vomiting, or any streaking or extending erythema into her palm or proximally into her forearm or upper extremity. The patient had been tolerating her p.o. medications without complications. She denies any recent fevers, chills, nausea, vomiting, as well as any chest pain, shortness of breath, or cough. She states that she has been , otherwise, tolerating her home medications without complication. She has a significant past medical historysignificant for renal disease and diabetes. Upon examination today, the patient reports that her fingers are largely unchanged since her admission overnight, and notes that her erythema has not increased. She notes continued discomfort with active range of motion of the finger, noting global tenderness to palpation, both on the dorsal and palmar aspect of the finger. The patient reports no additional pain or tenderness in digits 1, 3 through 5, or in her palm. The patient reports no symptoms in her forearm or upper extremity. She also denies any new onset numbness or tingling. She has had no additional concerns or complaints at this time. PAST MEDICAL HISTORY: This is significant for diabetes, end-stage renal disease , hemodialysis dependent, COPD (the patient is on chronic oxygen), chronic diastolic heart failure, peripheral vascular disease, status post lower extremity L BKA, renal cell carcinoma, status post resection, history of CVA with chronic aphasia, fibromyalgia, GERD, carotid stenosis, Graves disease, hyperlipidemia and hypertension. MEDICATIONS: Please see EMR for complete medication reconciliation; however, this includes acetaminophen, oxycodone IR, nitroglycerin, MiraLAX, aspirin 81 mg , Spiriva, midodrine, Lasix, DuoNeb, Lyrica, Tums, Lopressor, Lantus, Plavix, Lipitor, Synthroid, and calcium supplementation. Again, please see medication reconciliation in EMR for complete details. ALLERGIES: Patient reports allergy to sulfa medications, hydrocortisone creams , hydrocodone, and adhesives. SOCIAL HISTORY: Patient denies any current tobacco use, but does state she is a former smoker. Patient denies any current alcohol consumption. Patient denies any recreational drug use. Patient lives at [facility]. Patient is under full resuscitation per her MOST form. FAMILY HISTORY: This is significant for history of diabetes. No additional contributor to her family history is reported today. REVIEW OF SYSTEMS: A 10-point review of systems was reviewed today with no additional concerns, complaints, or abnormal findings not noted in the HPI or PMH. PHYSICAL EXAMINATION: VITAL SIGNS: Height is 152.4 cm. Weight is 69.85 kg. BP is 142/62, heart rate is 60 BPM, respirations 60 per minute, O2 saturation 87 % on room air, temperature 35.9 degrees Celsius. GENERAL: Otherwise, pleasant elderly female who presents in [facility], resting comfortably in bed. HEENT: NC/AT, EOMI, RYAN. Ears and nares appear patent without discharge. OP is clear. NECK: Supple. Full ROM. No cervical LAD noted. No cervical midline TTP noted. CARDIOVASCULAR: RRR. Chest is normal in appearance. RESPIRATORY: CTAB. No increased WOB noted. Chest rises symmetrically. A BDOMEN: Soft, NT/ND. MUSCULOSKELETAL: Right hand reveals moderate erythema of the right index finger , extending from approximately the 2nd MCP joint and distally to the tip of the finger, with marked red swelling. A minimally healing wound is noted over the dorsal aspect of the distal phalanx, at the base of the nail extending slightly to the ulnar aspect of the P3 digit. No active drainage is noted. Some skin sloughing is noted diffusely around the P3 digit. The remainder of the right hand exam reveals no erythema extending beyond the MCP joint, as well as no significant erythema of digits 1, 3, 4, and 5. Examination of the right wrist reveals NTTP of the distal radius and ulna, carpals, metacarpals 1 through 5, and digits 1, 3, 4, 5. The patient is apprehensive with any active movement of the index finger, though notes no significant pain with passive extension. No significant discomfort is noted with passive extension. Patient is able to hold her finger in extension with minimal discomfort. Patient has intact sensation distally. Capillary refill is less than 2 seconds in the finger pulse. Patient appears largely intact to light touch sensation in the median, radial, and ulnar nerve distributions. Contralateral left shoulder, elbow, wrist, hand, and finger exams are benign. Examination of the lower extremities is negative for significant lower extremity edema. Left BKA stump appears well healed. DNVI BUE and BLE. SKIN: Please see above dictation concerning right hand. No additional erythema , rashes, or lesions are noted. NEUROLOGIC: A and O x3. No deficits noted. PSYCHIATRIC: Patient is pleasant and cooperative with today's exam, answers questions appropriately. LABORATORY DATA: White count is 8.9, hematocrit 31.8, platelet count 251. Sodium 130, potassium 5.3, creatinine 4.3, blood glucose 167. ASSESSMENT: Right 2nd finger cellulitis. PLAN: This patient's case will be what was discussed with Dr. Lane today. At this time, the patient does not appear to be exhibiting any significant Kanavel signs, so the concern for a possible tenosynovitis is slightly less. However, it is possible the patient has a felon, though she is not exquisitely tender over the pad of her distal phalanx. Differential diagnosis, includes a right finger cellulitis, septic arthritis, osteomyelitis, or tenosynovitis. We will obtain plain films of the right 2nd digit for initial evaluation. Dr. Lane will see and examine the patient later today, and make a decision at that point , whether this injury would improve with subsequent irrigation and debridement of the joint, or any other surgical intervention. The patient will remain n.p.o. at this time and is to continue on her IV vancomycin as ordered. Infectious Disease consult is appreciated. We will continue to follow her blood culture results. She is to continue her current pain regimen and home medications as directed by the medicine team. All the patient's questions have been answered today and her concerns are addressed. She has relayed her understanding of the current care plan and education presented today, and appears pleased with the care she has received today. /[id number]/MODL MTDD
[2017-03-22] MEDS: CALCIUM CARBONATE 500 MG CHEWABLE TAB PO SCH ×3 (09:34→21:54)
[2017-03-22] MEDS: PREGABALIN 50 MG CAP PO SCH ×4 (09:34→22:02)
[2017-03-22] MEDS: MIDODRINE HCL 5 MG TAB PO SCH (09:34)
[2017-03-22] MEDS: CLOPIDOGREL BISULFATE 75 MG TAB PO SCH (09:34)
[2017-03-22] MEDS: METOPROLOL TARTRATE 25 MG TAB PO SCH ×2 (09:34→21:55)
[2017-03-22] MEDS: ASPIRIN 81 MG CHEWABLE TAB PO SCH (09:35)
[2017-03-22] MEDS: FUROSEMIDE 40 MG TAB PO SCH ×2 (09:35→21:56)
[2017-03-22] MEDS: INSULIN LISPRO 100 UNIT/ML SC SCH ×3 (09:36→21:59)
--- NOTE | 2017-03-22 10:02 | ASMTCASEMG ---
Living Arrangements What is your living Answers: Alone arrangement? Who do you live with? Type Of Residence What kind of residence do Answers: Senior Living Facility you live in? Type of Residence Facility Name Notes: [facility] Discharge Plan Comments Coordination Status Comments Notes: Pt is a 71 y/o female admitted for right index finger cellulitis, ESRD and diabetes. Therapies have been ordered and awaiting recommendations. Wound care is involved. Pt will most likely d/c back to [facility] when medically stable. CM sent updates to [facility]. CM to follow. Plan: [facility] Date Signed: 03/22/2017 10:02 AM Electronically Signed By:MALORIE Singh
[2017-03-22] MEDS: INSULIN GLARGINE 100 UNITS/ML UNIT SC SCH ×3 (11:38→21:57)
--- NOTE | 2017-03-22 11:46 | PDMN ---
Medical Necessity Medical necessity: Pt meets IP criteria per MD; est los >2 mn for eval/tx of progressive cellulitis of R hand requiring close monitoring, surgical evaluation , wound care consult, IV abx & therapies; hx diabetes, end-stage renal disease/ hemodialysis dependent, COPD, chronic diastolic heart failure, PVD s/p LE amputation, renal cell carcinoma s/p resection, CVA w/chronic aphasia & htn; per H&P & order 03/21/17
--- NOTE | 2017-03-22 12:22 | WOCRNPDOC ---
WOCRN Advanced Assessment Note - Skin Integrity Problem, Advanced Assess Right Second Finger Dressing Type: Open to Air Exudate Characteristic(s): Dried Yessenia Wound Tissue: Erythema, Swollen Yessenia Wound Swelling: Moderate Wound Bed Color: Brown, Yellow Wound Bed Constitution: Scab, Intact Purulent Blister (on distal aspect of wound bed) Site Odor: None Skin Integrity Problem Comment: Dried, intact scab over wound on distal aspect of patient's R 2nd finger. There is no fluctuance directly over the scab, but there is a small 0.3cm diameter pocket of purulence on the distal margin of the wound bed. In addition, there is swelling/erythema throughout this entire digit. Does not appear to have significant abscess. Will await input from ID and /or hispitalist before determining wound care. Left Upper Medial Thigh Dressing Type: Open to Air Exudate Amount: None Exudate Characteristic(s): None Integumentary Issue Intervention: Barrier Cream Applied (MAD cream ordered for nursing to apply) Yessenia Wound Tissue: Macerated, Intact Yessenia Wound Swelling: None Wound Bed Color: Red, White Wound Bed Constitution: Red/Somis - Non Granular Tissue Wound Edges: Well Defined Site Odor: Moderate Site Measurement - Head-to-Toe Length X Width X Depth (cm): 2cmx2.5cmx0.1cm Skin Integrity Problem Comment: Discrete area of vegitative-like growth noted on patient's uppermost L thigh, just distal to her perineum, apperance and odor consistent w/ combination of fungus and excess moisture. Patient's denied pain during assessment. Tissue is slightly raised w/ a whitish layer of macerated tissue overlying. Not over a bony prominence, no concern that this is pressure- related. There is scarring on the opposite upper thigh/gluteal fold, but patient denies any h/o wounds. This wound is located in a moist skin fold, so I will have nursing initate tx w/ MAD cream today, which is a combo of zinc/lido/ clotrimazole. knit goods washer Terri present to visualize site.
--- NOTE | 2017-03-22 12:23 | GCON ---
[f rep st] CONSULTATION NEPHROLOGY CONSULTATION DATE OF CONSULTATION: 03/22/2017 REASON FOR CONSULTATION: Management of end-stage renal disease, right finger cellulitis. HISTORY OF PRESENT ILLNESS: This is a pleasant 71-year-old female with a past medical history signif icant for end-stage renal disease secondary to diabetic kidney disease, along with peripheral vascula r disease and active tobacco history, who now presents with worsening swelling and cellulitis over he r right index finger. History is obtained from the patient and the medical records. The patient rigo lyzes on a Tuesday, , Tuesday schedule under the care of Dr. Diaz at [facility]. The patient has had ongoing issues with ischemia and chronic infections in the fingers of her right h and. Of note, this is the arm where her dialysis access is located. At the time of admission, the p atient had noted a progressive erythema and swelling in the MCP and DIP of her right index finger. S he was not having any systemic symptoms relating to this. She had previously been treated with oral Keflex. She does have discomfort upon flexing the finger. An orthopedic hand specialist is followin g her case. The patient believes her dialysis is going well. She denies cramping, shortness of breath, or dizzin ess. She states her fistula function has been good. Her appetite has been good. As related to the above findings, we are asked by Dr. Chase to assist in the patient's renal diagnosis and management . PAST MEDICAL HISTORY: 1. Diabetes mellitus. 2. End-stage renal disease. 3. Chronic respiratory failure secondary to COPD. 4. Active tobacco use. 5. Diastolic heart failure. 6. Peripheral vascular disease. 7. History of renal cell carcinoma. 8. History of CVA with residual aphasia. 9. Fibromyalgia. 10. GERD. 11. Carotid artery disease. 12. Graves disease. 13. Hyperlipidemia. 14. Hypertension. PAST SURGICAL HISTORY: Includes: 1. Access placement. 2. BKA. ALLERGIES: Adhesives, hydrocodone, hydrocortisone. HOME MEDICATIONS: Tylenol, albuterol, aspirin, atorvastatin, calcium carbonate, Plavix, Lasix, insul in, Synthroid, milk of magnesia, metoprolol, midodrine, nitroglycerin, Zofran, oxycodone, Lyrica, Spi luiz inhaler, and vancomycin. FAMILY HISTORY: Noncontributory. SOCIAL HISTORY: The patient is originally from [place], [place]. She does not have children. She is a resident of [place]. She currently continues to smoke cigarettes. She does not drink alcohol. REVIEW OF SYSTEMS: GENERAL: The patient denies fevers, chills, or sweats. HEENT: She denies heada ches. She denies visual changes. She has had some rhinitis. She denies odynophagia. RESPIRATORY: She denies cough or shortness of breath. CARDIOVASCULAR: She denies chest pain or palpitations. G I: She denies abdominal pain, constipation, or diarrhea. : She makes some urine. She denies dys uria. EXTREMITIES: She has some chronic lower extremity edema. She has a left BKA. SKIN: She den ies skin rashes. ENDOCRINE: She does have a history of diabetes and thyroid disease. PHYSICAL EXAMINATION: GENERAL: At the time of exam, the patient is appropriate and alert. VITAL SI GNS: Temperature 35.9, pulse 73, blood pressure 142/62. EYES: Sclerae are clear. OROPHARYNX: Melvin ar. NECK: No lymphadenopathy or thyromegaly. LUNGS: A few rales are heard in the right base. Oth erwise clear. CARDIOVASCULAR: Regular rate and rhythm without gallops or rubs. ABDOMEN: Nontender . No organomegaly. /RECTAL: Deferred. EXTREMITIES: The patient has a left BKA. She does have 1+ right lower extremity edema. INTEGUMENT: Generally clear. She does show a violaceous and swolle n appearance to her right index finger. NEURO: The patient does have a history of neuropathy. LABORATORY STUDIES: White count 7.92, hematocrit 34.4, platelets 211. Sodium 131, potassium 4.9, bi carb 25, creatinine 4.4. IMPRESSION AND PLAN: 1. End-stage renal disease: It appears that the patient's dialysis has been quite stable. Her volu me status is slightly elevated but generally appears appropriate. We will arrange for dialysis today , as it is her typical outpatient day. Her next dialysis will be on . 2. Right finger cellulitis: The patient does have worsening infection and swelling, as well as isch emia in her right index finger. There are concerns that the patient's access could be exacerbating t his process. We will assess as to whether she has a fistulogram that will look further into the bloo d supply to her hand. She is receiving vancomycin. She had previously been receiving Keflex. Hand Surgery is following. 3. Anemia: This appears stable. We will monitor and give an erythropoietin-stimulating agent as ne eded. Thank you for allowing us to participate in this lady's care. We will continue to follow along close ly with you. /[id number]/MODL
--- NOTE | 2017-03-22 13:01 | SOAPPROG ---
SOAP Progress Note Assessment/Plan: Assessment: Cellulitis Right index finger superimposed on what may have been a paronychial infection that decompressed. It is possible for underlying bone invovement and DIP joint involvement. Plan: MRI right index finger to assess for underlying abscess, osteomyelitis, DIP joint involvement OK to eat today and then keep NPO after 6 AM tomorrow. 03/22/17 12:57 Subjective: Pain slightly improved on Vanco. Objective: Vital Signs Temp Pulse Resp BP Pulse Ox 36.4 C 62 18 115/64 94 03/22/17 11:37 03/22/17 12:04 03/22/17 12:04 03/22/17 11:37 03/22/17 12:04 Laboratory Results 03/22/17 05:15 03/22/17 05:15 Negative knavel signs. Restricted but intact PIP and DIP motion. Scab at base of nail near DIP joint. Mild volar pulp pain. Erythema but no fluculance. ICD10 Worksheet Patient Problems: Problems Problem Status Onset Cellulitis of finger of right hand Acute Diabetes mellitus type 2 Acute ESRD (end stage renal disease) on dialysis Acute MRSA (methicillin resistant Staphylococcus aureus) Acute 04/16/15 Anemia Active Dyslipidemia Active Hypothyroidism Active Acute hyponatremia Acute Altered mental status Acute Anemia Acute COPD exacerbation Acute Chronic Disease Mgmt/Transitional Care Acute Chronic renal failure Acute Clostridium difficile infection Acute Congestive heart failure Acute Elevated troponin Acute Hypochloremia Acute Hypoxemia Acute Pneumonia Acute Sepsis without acute organ dysfunction Acute Shortness of breath Acute Urinary tract infection Acute
--- NOTE | 2017-03-22 15:00 | HOSPPROG ---
Hospitalist Progress Note Assessment/Plan: Index finger cellulitis - ?tenosynovitis vs complicated paronychia. Evaluated by hand surgery. BCx's pending. No e/o sepsis. -MRI today, NPO in am -cont vanc, dosing per pharmacy ESRD - Nephrology aware of admission, will cont /Th/Sat HD regimen DM type 2 - BG's 100's, cont home basal/bolus insulin regimen Chronic diastolic HF - stable, continue HD plus outpt Lasix dose H/O CVA with residual aphasia - cont asa, plavix, statin PVD s/p LE amputation - antiplatelet regimen as above Htn - adequate control, cont BB Full code DVT PPLX - MAYRA, hold tonight for possible surgery tomorrow Dispo - cont inpt Subjective: Pt resting comfortably on dialysis. No pain. No fevers. Appetite ok. Objective: Vital Signs Temp Pulse Resp BP Pulse Ox 36.4 C 62 18 115/64 94 03/22/17 11:37 03/22/17 12:04 03/22/17 12:04 03/22/17 11:37 03/22/17 12:04 Laboratory Results 03/22/17 05:15 03/22/17 05:15 - Physical Exam Constitutional: no apparent distress Eyes: PERRL Ears, Nose, Mouth, Throat: moist mucous membranes Cardiovascular: regular rate and rhythym Respiratory: no respiratory distress Gastrointestinal: normoactive bowel sounds, soft, non-tender abdomen Skin: warm Musculoskeletal: other (right index finger with paronychial eschar and edema / erythema extending proximally to MCP, decreased ROM of PIP and DIP joint) Neurologic: AAOx3 Psychiatric: interacting appropriately ICD10 Worksheet Patient Problems: Problems Problem Status Onset Cellulitis of finger of right hand Acute Diabetes mellitus type 2 Acute ESRD (end stage renal disease) on dialysis Acute MRSA (methicillin resistant Staphylococcus aureus) Acute 04/16/15 Anemia Active Dyslipidemia Active Hypothyroidism Active Acute hyponatremia Acute Altered mental status Acute Anemia Acute COPD exacerbation Acute Chronic Disease Mgmt/Transitional Care Acute Chronic renal failure Acute Clostridium difficile infection Acute Congestive heart failure Acute Elevated troponin Acute Hypochloremia Acute Hypoxemia Acute Pneumonia Acute Sepsis without acute organ dysfunction Acute Shortness of breath Acute Urinary tract infection Acute
[2017-03-22] MEDS: HEPARIN 5,000 UNIT/0.5 ML SYR SC SCH (17:34)
[2017-03-22] MEDS: LIDO/ZINC OX/CLOTRIMAZOLE (MAD) 116 GM CREAM TP SCH ×2 (17:36→22:04)
[2017-03-22] MEDS: ATORVASTATIN CALCIUM 40 MG TAB PO SCH (21:57)
[2017-03-23] MEDS: LEVOTHYROXINE 125 MCG TAB PO SCH (04:57)
--- NOTE | 2017-03-23 08:12 | SOAPPROG ---
SOAP Progress Note Assessment/Plan: Assessment: Cellulitis Right index finger superimposed on what may have been a paronychial infection that decompressed. It is possible for underlying bone invovement and DIP joint involvement. Plan: MRI right index finger to assess for underlying abscess, osteomyelitis, DIP joint involvement 03/22/17 12:57 03/23/17 08:10 Subjective: Pain a bit better Objective: Vital Signs Temp Pulse Resp BP Pulse Ox 36.9 C 61 16 140/59 H 97 03/23/17 04:00 03/23/17 04:00 03/23/17 04:00 03/23/17 04:00 03/23/17 04:00 Laboratory Results 03/22/17 05:15 03/23/17 04:54 03/22/17 03/23/17 03/24/17 05:59 05:59 05:59 Intake Total 750 Balance 750 Cellulitis iimproved but still some pain with movement. No drainage ICD10 Worksheet Patient Problems: Problems Problem Status Onset Cellulitis of finger of right hand Acute Diabetes mellitus type 2 Acute ESRD (end stage renal disease) on dialysis Acute MRSA (methicillin resistant Staphylococcus aureus) Acute 04/16/15 Anemia Active Dyslipidemia Active Hypothyroidism Active Acute hyponatremia Acute Altered mental status Acute Anemia Acute COPD exacerbation Acute Chronic Disease Mgmt/Transitional Care Acute Chronic renal failure Acute Clostridium difficile infection Acute Congestive heart failure Acute Elevated troponin Acute Hypochloremia Acute Hypoxemia Acute Pneumonia Acute Sepsis without acute organ dysfunction Acute Shortness of breath Acute Urinary tract infection Acute
[2017-03-23] MEDS: FUROSEMIDE 40 MG TAB PO SCH ×2 (08:21→21:38)
[2017-03-23] MEDS: PREGABALIN 50 MG CAP PO SCH ×3 (08:21→21:39)
[2017-03-23] MEDS: INSULIN LISPRO 100 UNIT/ML SC SCH ×3 (08:36→18:01)
[2017-03-23] MEDS: METOPROLOL TARTRATE 25 MG TAB PO SCH ×2 (08:38→21:39)
[2017-03-23] MEDS: TIOTROPIUM INHALER 18 MCG/DOSE 5 DOSE/MDI IH SCH (09:38)
[2017-03-23] MEDS ORDERED: VANCOMYCIN HCL/NORMAL SALINE 250 ML IV ONE (10:00)
[2017-03-23] MEDS: INSULIN GLARGINE 100 UNITS/ML UNIT SC SCH ×2 (10:34→21:38)
[2017-03-23] MEDS: CLOPIDOGREL BISULFATE 75 MG TAB PO SCH (10:36)
[2017-03-23] MEDS: CALCIUM CARBONATE 500 MG CHEWABLE TAB PO SCH ×3 (10:36→21:38)
[2017-03-23] MEDS: LIDO/ZINC OX/CLOTRIMAZOLE (MAD) 116 GM CREAM TP SCH ×2 (10:37→21:40)
[2017-03-23] MEDS: ASPIRIN 81 MG CHEWABLE TAB PO SCH (10:39)
--- NOTE | 2017-03-23 15:38 | SOAPPROG ---
SOAP Progress Note Assessment/Plan: Assessment: 1. ESRD. HD tomorrow on TTS schedule. 2. R 1st finger cellulitis. Access arm. Hand warm and otherwise w/o evidence of ischemic ulcers, not painful. Sounds like this started with a finger wound and progressed. Steal sx still possible. Continue vancomycin. Hand surg notes reviewed, MRI neg for osteo, no plans for surgery. Can let her eat. 3. Anemia. Hgb adequate at 9.9. Plan: 03/23/17 15:38 03/23/17 15:40 Subjective: Finger hurts a little bit. Hungry. Had dialysis yesterday, 2 L UF, BPs were okay. Objective: Vital Signs Temp Pulse Resp BP Pulse Ox 36.6 C 56 L 18 135/45 H 96 03/23/17 11:23 03/23/17 11:23 03/23/17 11:23 03/23/17 11:23 03/23/17 11:23 Laboratory Results 03/22/17 05:15 03/23/17 04:54 03/22/17 03/23/17 03/24/17 05:59 05:59 05:59 Intake Total 750 Balance 750 In chair, sleepy but easily awoken RRR, no m/g/r Bibasilar crackles Abdom obese, soft, nt BKA, no LE edema R first finger mildly swollen, violaceous with crusted, dry lesion at PIP; not warm Hand warm, other fingers w/o ulcers or tenderness RUE AVF with good thrill. Arm not swollen ICD10 Worksheet Patient Problems: Problems Problem Status Onset Hypothyroidism Active Diabetes mellitus type 2 Acute Anemia Active Dyslipidemia Active Clostridium difficile infection Acute Pneumonia Acute COPD exacerbation Acute ESRD (end stage renal disease) on dialysis Acute Chronic Disease Mgmt/Transitional Care Acute MRSA (methicillin resistant Staphylococcus aureus) Acute 04/16/15 Shortness of breath Acute Congestive heart failure Acute Hypoxemia Acute Acute hyponatremia Acute Hypochloremia Acute Sepsis without acute organ dysfunction Acute Altered mental status Acute Chronic renal failure Acute Urinary tract infection Acute Elevated troponin Acute Anemia Acute Cellulitis of finger of right hand Acute
--- NOTE | 2017-03-23 18:14 | HOSPPROG ---
Hospitalist Progress Note Assessment/Plan: Assessment: 71 yo F p/w Index finger cellulitis in setting of ESRD Plan: # Cellulitis. R index finger, POA, MRI ruled out tenosynovitis/septic arthritis - cont w/ IV Vanco, monitor area, remains unresolved - repeat WBC in AM - will d/w renal tomorrow Vanco w/ HD as outpt # ESRD. Cont T/Th/Sat HD # DM type 2. Cont lantus + ISS # Chronic diastolic CHF. Stable, cont HD # Hx CVA with residual aphasia. Cont asa, plavix, statin # PVD s/p LE amputation. Antiplatelet regimen as above # HTN. Chronic, cont bblocker Full code DVT PPLX - MAYRA Dispo - ADD 03/24, pending improvement in cellulitis Subjective: ongoing edema in finger, hungry Objective: Vital Signs Temp Pulse Resp BP Pulse Ox 36.4 C 53 L 18 150/62 H 99 03/23/17 15:58 03/23/17 15:58 03/23/17 15:58 03/23/17 15:58 03/23/17 15:58 Laboratory Results 03/22/17 05:15 03/23/17 04:54 03/22/17 03/23/17 03/24/17 05:59 05:59 05:59 Intake Total 750 Balance 750 - Pending Discharge Pending Discharge Within 24 Hours: Yes Pending Discharge Date: 03/24/17 Pending Discharge Time: 11:00 - Physical Exam Constitutional: no apparent distress, appears nourished, chronically ill appearing, uncomfortable Cardiovascular: systolic murmur (II/ at sternum), edema (trace RLE), No irregularly irregular, No tachycardia Respiratory: no respiratory distress, no rales or rhonchi, clear to auscultation Gastrointestinal: normoactive bowel sounds, soft, non-tender abdomen, no palpable masses Skin: other (ecchymoses, edema, tenderness entirety of R index irma w/o induration) Musculoskeletal: other (limited ROM 2/2 pain in R index PIP, full at MCP) Neurologic: AAOx3, sensation intact bilaterally, No facial droop Psychiatric: interacting appropriately, not anxious, not encephalopathic, thought process linear ICD10 Worksheet Patient Problems: Problems Problem Status Onset Hypothyroidism Active Diabetes mellitus type 2 Acute Anemia Active Dyslipidemia Active Clostridium difficile infection Acute Pneumonia Acute COPD exacerbation Acute ESRD (end stage renal disease) on dialysis Acute Chronic Disease Mgmt/Transitional Care Acute MRSA (methicillin resistant Staphylococcus aureus) Acute 04/16/15 Shortness of breath Acute Congestive heart failure Acute Hypoxemia Acute Acute hyponatremia Acute Hypochloremia Acute Sepsis without acute organ dysfunction Acute Altered mental status Acute Chronic renal failure Acute Urinary tract infection Acute Elevated troponin Acute Anemia Acute Cellulitis of finger of right hand Acute
[2017-03-23] MEDS: ATORVASTATIN CALCIUM 40 MG TAB PO SCH (21:39)
[2017-03-23] MEDS: HEPARIN 5,000 UNIT/0.5 ML SYR SC SCH (21:39)
[2017-03-24] MEDS: LEVOTHYROXINE 125 MCG TAB PO SCH (05:23)
[2017-03-24] MEDS: oxyCODONE IR 5 MG TAB PO PRN ×2 (05:30→18:30)
[2017-03-24] MEDS: ACETAMINOPHEN 325 MG TAB PO PRN ×3 (07:34→23:36)
[2017-03-24] MEDS: PREGABALIN 50 MG CAP PO SCH ×3 (07:36→23:27)
[2017-03-24 08:05] LABS: PLATELET COUNT 193 10^3/uL (150-400)
--- NOTE | 2017-03-24 08:21 | SOAPPROG ---
SOAP Progress Note Assessment/Plan: Assessment: Right index finger cellulitis with paronychia: MRI showed mild extensor tendon peritendinitis with no evidence of underlying osteomyelitis. Plan: Symptoms improving, continue antibiotics per IM/ID. Appreciate their recommendations. Continue with conservative treatment: ice, elevation. Shown AROM exercises and encourage ROM and no heavy lifting. We will continue to F/U with her; for additional questions/concerns call our office at [phone]. D/C once stable and F/U in clinic following discharge. Patient advised to watch for fever/chills/NVD, change in ROM/strength, worsening numbness/tingling, change in heat/color of extremity, change in swelling and to seek immediate medical attention if seen. Patient agrees/understands this plan. Patient/plan discussed with Dr. Lane. 03/24/17 08:19 Subjective: Patient sitting up in room, able to respond appropriately to questions. Able to move right index finger, though stiff. Denies cough, congestion, chest pain, SOB, fever, chills, NVD, worsening change in heat/color of extremity, abnormal numbness/tingling, worsening change in ROM or strength. Objective: Vital Signs Temp Pulse Resp BP Pulse Ox 36.9 C 57 L 16 126/57 H 97 03/24/17 08:00 03/24/17 08:00 03/24/17 08:00 03/24/17 08:00 03/24/17 08:00 Laboratory Results 03/24/17 07:45 03/23/17 03/24/17 03/25/17 05:59 05:59 05:59 Intake Total 750 400 Balance 750 400 Alert and oriented. NAD, atraumatic. Non-labored breathing, no diaphoresis noted. Calves soft/supple and NTTP b/l. Right IF: cellulitis of right index finger, not extending into the dorsum of hand. Limited AROM of right IF due to swelling/stiffness and severe pain to patient. No abnormal bleeding/oozing/discharge, worsening change in heat/color noted around the paronychia. Otherwise, brisk cap refill b/l. Extensor mechanisms and flexor mechanisms grossly intact in right IF. Gross sensation intact b/l with no focal deficits. MRI of right IF: cellulitis with mild peritendinitis of adjacent extensor tendons with no evidence of osteomyelitis. 03/24/17 07:45 03/24/17 07:45 WBC 9.70 10^3/uL (3.80-9.50) H 03/24/17 07:45 RBC 2.98 10^6/uL (4.18-5.33) L 03/24/17 07:45 Hgb 8.8 g/dL (12.6-16.3) L 03/24/17 07:45 Hct 26.5 % (38.0-47.0) L 03/24/17 07:45 MCV 88.9 fL (81.5-99.8) 03/24/17 07:45 MCH 29.5 pg (27.9-34.1) 03/24/17 07:45 MCHC 33.2 g/dL (32.4-36.7) 03/24/17 07:45 RDW 16.6 % (11.5-15.2) H 03/24/17 07:45 Plt Count 193 10^3/uL (150-400) 03/24/17 07:45 MPV 10.9 fL (8.7-11.7) 03/24/17 07:45 Neut % (Auto) 80.6 % (39.3-74.2) H 03/24/17 07:45 Lymph % (Auto) 10.7 % (15.0-45.0) L 03/24/17 07:45 [place] % (Auto) 5.9 % (4.5-13.0) 03/24/17 07:45 Eos % (Auto) 1.4 % (0.6-7.6) 03/24/17 07:45 Baso % (Auto) 0.8 % (0.3-1.7) 03/24/17 07:45 Nucleat RBC Rel Count 0.0 % (0.0-0.2) 03/24/17 07:45 Absolute Neuts (auto) 7.81 10^3/uL (1.70-6.50) H 03/24/17 07:45 Absolute Lymphs (auto) 1.04 10^3/uL (1.00-3.00) 03/24/17 07:45 Absolute Monos (auto) 0.57 10^3/uL (0.30-0.80) 03/24/17 07:45 Absolute Eos (auto) 0.14 10^3/uL (0.03-0.40) 03/24/17 07:45 Absolute Basos (auto) 0.08 10^3/uL (0.02-0.10) 03/24/17 07:45 Absolute Nucleated RBC 0.00 10^3/uL (0-0.01) 03/24/17 07:45 Immature Gran % 0.6 % (0.0-1.1) 03/24/17 07:45 Immature Gran # 0.06 10^3/uL (0.00-0.10) 03/24/17 07:45 Sodium 134 mEq/L (135-145) L 03/24/17 07:45 Potassium 4.6 mEq/L (3.5-5.2) 03/24/17 07:45 Chloride 96 mEq/L (97-110) L 03/24/17 07:45 Carbon Dioxide 24 mEq/l (22-31) D 03/24/17 07:45 Anion Gap 14 mEq/L (8-16) 03/24/17 07:45 BUN 59 mg/dL (7-23) H 03/24/17 07:45 Creatinine 3.5 mg/dL (0.6-1.0) H 03/24/17 07:45 Estimated GFR 13 03/24/17 07:45 Glucose 102 mg/dL (70-100) H 03/24/17 07:45 POC Glucose 166 mg/dL (70-100) H 03/24/17 11:22 Calcium 9.2 mg/dL (8.5-10.4) 03/24/17 07:45 Phosphorus 4.8 mg/dL (2.5-4.5) H 03/24/17 07:45 Albumin 2.8 g/dL (3.5-5.0) L 03/24/17 07:45 Random Vancomycin 9.9 mcg/mL (0.0-40.0) 03/23/17 08:37 ICD10 Worksheet Patient Problems: Problems Problem Status Onset Cellulitis of finger of right hand Acute Diabetes mellitus type 2 Acute ESRD (end stage renal disease) on dialysis Acute MRSA (methicillin resistant Staphylococcus aureus) Acute 04/16/15 Anemia Active Dyslipidemia Active Hypothyroidism Active Acute hyponatremia Acute Altered mental status Acute Anemia Acute COPD exacerbation Acute Chronic Disease Mgmt/Transitional Care Acute Chronic renal failure Acute Clostridium difficile infection Acute Congestive heart failure Acute Elevated troponin Acute Hypochloremia Acute Hypoxemia Acute Pneumonia Acute Sepsis without acute organ dysfunction Acute Shortness of breath Acute Urinary tract infection Acute Lab Data & Imaging Review 03/24/17 07:45 03/24/17 07:45 WBC 9.70 10^3/uL (3.80-9.50) H 03/24/17 07:45 RBC 2.98 10^6/uL (4.18-5.33) L 03/24/17 07:45 Hgb 8.8 g/dL (12.6-16.3) L 03/24/17 07:45 Hct 26.5 % (38.0-47.0) L 03/24/17 07:45 MCV 88.9 fL (81.5-99.8) 03/24/17 07:45 MCH 29.5 pg (27.9-34.1) 03/24/17 07:45 MCHC 33.2 g/dL (32.4-36.7) 03/24/17 07:45 RDW 16.6 % (11.5-15.2) H 03/24/17 07:45 Plt Count 193 10^3/uL (150-400) 03/24/17 07:45 MPV 10.9 fL (8.7-11.7) 03/24/17 07:45 Neut % (Auto) 80.6 % (39.3-74.2) H 03/24/17 07:45 Lymph % (Auto) 10.7 % (15.0-45.0) L 03/24/17 07:45 [place] % (Auto) 5.9 % (4.5-13.0) 03/24/17 07:45 Eos % (Auto) 1.4 % (0.6-7.6) 03/24/17 07:45 Baso % (Auto) 0.8 % (0.3-1.7) 03/24/17 07:45 Nucleat RBC Rel Count 0.0 % (0.0-0.2) 03/24/17 07:45 Absolute Neuts (auto) 7.81 10^3/uL (1.70-6.50) H 03/24/17 07:45 Absolute Lymphs (auto) 1.04 10^3/uL (1.00-3.00) 03/24/17 07:45 Absolute Monos (auto) 0.57 10^3/uL (0.30-0.80) 03/24/17 07:45 Absolute Eos (auto) 0.14 10^3/uL (0.03-0.40) 03/24/17 07:45 Absolute Basos (auto) 0.08 10^3/uL (0.02-0.10) 03/24/17 07:45 Absolute Nucleated RBC 0.00 10^3/uL (0-0.01) 03/24/17 07:45 Immature Gran % 0.6 % (0.0-1.1) 03/24/17 07:45 Immature Gran # 0.06 10^3/uL (0.00-0.10) 03/24/17 07:45 Sodium 137 mEq/L (135-145) 03/23/17 04:54 Potassium 4.5 mEq/L (3.5-5.2) 03/23/17 04:54 Chloride 97 mEq/L (97-110) 03/23/17 04:54 Carbon Dioxide 30 mEq/l (22-31) 03/23/17 04:54 Anion Gap 10 mEq/L (8-16) 03/23/17 04:54 BUN 40 mg/dL (7-23) H 03/23/17 04:54 Creatinine 3.0 mg/dL (0.6-1.0) H 03/23/17 04:54 Estimated GFR 15 03/23/17 04:54 Glucose 105 mg/dL (70-100) H 03/23/17 04:54 POC Glucose 106 mg/dL (70-100) H 03/24/17 07:52 Calcium 10.0 mg/dL (8.5-10.4) 03/23/17 04:54 Phosphorus 4.2 mg/dL (2.5-4.5) 03/23/17 04:54 Albumin 3.0 g/dL (3.5-5.0) L 03/23/17 04:54 Random Vancomycin 9.9 mcg/mL (0.0-40.0) 03/23/17 08:37 Imaging Review: MRI reviewed.
[2017-03-24] MEDS: TIOTROPIUM INHALER 18 MCG/DOSE 5 DOSE/MDI IH SCH (09:23)
[2017-03-24] MEDS: INSULIN GLARGINE 100 UNITS/ML UNIT SC SCH ×2 (09:47→23:27)
[2017-03-24] MEDS: CLOPIDOGREL BISULFATE 75 MG TAB PO SCH (09:48)
[2017-03-24] MEDS: MIDODRINE HCL 5 MG TAB PO SCH (09:49)
[2017-03-24] MEDS: ASPIRIN 81 MG CHEWABLE TAB PO SCH (09:49)
[2017-03-24] MEDS: INSULIN LISPRO 100 UNIT/ML SC SCH ×3 (09:50→17:32)
[2017-03-24] MEDS: CALCIUM CARBONATE 500 MG CHEWABLE TAB PO SCH ×2 (09:50→17:07)
[2017-03-24] MEDS: LIDO/ZINC OX/CLOTRIMAZOLE (MAD) 116 GM CREAM TP SCH ×2 (09:52→23:32)
[2017-03-24] MEDS: HEPARIN 5,000 UNIT/0.5 ML SYR SC SCH ×2 (09:57→23:28)
[2017-03-24] MEDS: METOPROLOL TARTRATE 25 MG TAB PO SCH ×2 (11:42→23:27)
[2017-03-24] MEDS: FUROSEMIDE 40 MG TAB PO SCH ×2 (11:42→16:14)
--- NOTE | 2017-03-24 15:15 | PDIAF ---
- Diagnosis Diagnosis: Small bowel obstruction Code Status: Full Code - Medication Management Discharge Medications: Medications to Continue on Transfer Acetaminophen [Tylenol 325mg (*)] 650 mg PO Q4 PRN 12/25/12 [Last Taken 03:08] Nitroglycerin [Nitrostat 0.4 mg (*)] 0.4 mg SL PRN PRN 12/25/12 [Last Taken 03/08] Oxycodone Ir [Oxy Ir 5 mg (RX)] 2.5 mg PO BID PRN 12/25/12 [Last Taken 03/21/17 06:00] Polyethylene Glycol 3350 [Miralax 17 gm (*)] 17 gm PO DAILY PRN 12/25/12 [Last Taken Unknown] Aspirin [Aspirin 81mg (*)] 81 mg PO DAILY 07/12/13 [Last Taken 03/21/17] Furosemide [Lasix 80 MG (*)] 80 mg PO BID 01/21/15 [Last Taken 03/21/17 11:00] Midodrine HCl 5 mg PO TUTHSA@0900 01/21/15 [Last Taken 03/19/17] Tiotropium Inhaler [Spiriva Handihaler] 2 puffs IH DAILY 01/21/15 [Last Taken ] Atorvastatin Calcium [Lipitor 80 mg] 80 mg PO HS 12/14/16 [Last Taken 03/20/17] Calcium Carbonate [Tums 500MG (*)] 1,500 mg PO TID 12/14/16 [Last Taken 16:00] Clopidogrel Bisulfate [Clopidogrel] 75 mg PO DAILY 12/14/16 [Last Taken 03/21/17 ] Insulin Glargine [Lantus 100 UNITS/ML (*)] 3 units SC DAILY 12/14/16 [Last Taken 03/21/17] Insulin Glargine [Lantus 100 UNITS/ML (*)] 5 units SC HS 12/14/16 [Last Taken ] Ipratropium/Albuterol [Duoneb (*)] 3 ml IH Q4H PRN 12/14/16 [Last Taken Unknown] Magnesium Hydroxide [Milk of Magnesia] 30 ml PO DAILY PRN 12/14/16 [Last Taken 03/21/17] Metoprolol Tartrate [Lopressor 25 mg (*)] 12.5 mg PO BID 12/14/16 [Last Taken 11:00] Pregabalin [Lyrica 50mg (*)] 50 mg PO TID 12/14/16 [Last Taken 03/21/17 13:00] Calcium Polycarbophil 625 mg PO BID PRN 03/21/17 [Last Taken 03/21/17 11:00] Levothyroxine [Synthroid 125 mcg (*)] 125 mcg PO DAILY06 03/21/17 [Last Taken ] Lido/Zinc Ox/Clotrimazole Crm [Moisture Associated Dermatitis Cream] 1 porfirio TP BID cream 03/24/17 [Last Taken Unknown] Vancomycin HCl/Normal Saline [Vancomycin 1 gm (Premix)] 1 gm IV TUTHSA #3 bag [Last Taken Unknown] Money Room Supervisor Antibiotics: Vancomycin 1gm IV TThSat Money Room Supervisor Antibiotic Stop Date: 03/31/17 Discharge Medications: Refer to the Discharge Home Medication list for PRN reason. PICC Care - Routine: N/A - Orders Services needed: Home Care, Registered Nurse, Certified Physician Assistant Home Care Face to Face: I certify that this patient was under my care and that I had the required [id number] encounter meeting the encounter requirements on the discharge day. My findings support the fact that the patient is homebound as defined in Home Care Face to Face Continued: CMS Chapter 7 Medicare Benefits Manual 30.1.1 , The condition of the patient is such that there exists a normal inability to leave home and consequently, leaving home would require a considerable and taxing effort. Isolation Type: Contact Isolation Oxygen: 2 LPM continuous Diet Recommendation: other (renal diet) Weigh Patient: at dialysis Zhou: Not applicable - Follow Up Care Current Providers and Referrals: Ray Dominguez MD [Medical Doctor] - (please contact if dialysis questions) Patient,NotPresent [Unknown] - As per Instructions Baljinder Lane MD [Medical Doctor] - follow up in 1 week
--- NOTE | 2017-03-24 15:32 | ASMTCMCOM ---
CM Note CM Note Notes: Pt not discharging today, per MD needs fistulagram. Denis at notified. DC Plan: Return to [place] Date Signed: 03/24/2017 03:31 PM Electronically Signed By:Lily Nixon RN
--- NOTE | 2017-03-24 15:34 | SOAPPROG ---
SOAP Progress Note Assessment/Plan: Assessment: 1. ESRD. HD tomorrow on TTS schedule. 2. R 1st finger cellulitis. Access arm. Hand surg notes reviewed, MRI neg for osteo, no plans for surgery. Hand appears ischemic. Per patient has been some time since last fistulagram. Will order fistulagram with runoffs to hand and consult Dr. Wiggins to see if banding/DRIL would be of benefit. May just have small vessel disease as well. Last access flow from dialysis was 919 ml/min, not extremely high. Continue ASA. NPO after midnight. Continue vancomycin. I called order to dialysis unit to give q rx through after d/c. 3. Anemia. Hgb dropped to 8.8. Give procrit. Plan: 03/23/17 15:38 03/23/17 15:40 03/24/17 15:33 03/24/17 15:35 03/24/17 15:35 Subjective: C/o 5/10 finger pain, no better than on admission. Dialysis went fine this am. 2L UF. Objective: Vital Signs Temp Pulse Resp BP Pulse Ox 36.4 C 60 16 132/58 H 98 03/24/17 11:40 03/24/17 11:40 03/24/17 11:40 03/24/17 11:40 03/24/17 11:40 Laboratory Results 03/24/17 07:45 03/24/17 07:45 03/23/17 03/24/17 03/25/17 05:59 05:59 05:59 Intake Total 750 400 Balance 750 400 Comfortable wf, in chair, debilitated RRR, no m/g/r CTAB Abdom soft, nt No LE edema R arm AVF R hand violaceous relative to left. Several punctate crusted ulcers. 1st finger swollen, not warm, >1cm escar below nail ICD10 Worksheet Patient Problems: Problems Problem Status Onset Hypothyroidism Active Diabetes mellitus type 2 Acute Anemia Active Dyslipidemia Active Clostridium difficile infection Acute Pneumonia Acute COPD exacerbation Acute ESRD (end stage renal disease) on dialysis Acute Chronic Disease Mgmt/Transitional Care Acute MRSA (methicillin resistant Staphylococcus aureus) Acute 04/16/15 Shortness of breath Acute Congestive heart failure Acute Hypoxemia Acute Acute hyponatremia Acute Hypochloremia Acute Sepsis without acute organ dysfunction Acute Altered mental status Acute Chronic renal failure Acute Urinary tract infection Acute Elevated troponin Acute Anemia Acute Cellulitis of finger of right hand Acute
[2017-03-24] MEDS ORDERED: EPOETIN ALFA 10,000 UNIT/ML VIAL SC SCH (15:45)
--- NOTE | 2017-03-24 16:08 | HOSPPROG ---
Hospitalist Progress Note Assessment/Plan: Assessment: 71 yo F p/w Index finger cellulitis in setting of ESRD Plan: # Cellulitis. R index finger, POA, MRI ruled out tenosynovitis/septic arthritis - d/w Dr. Keys, he recommends cont w/ IV Vanco as outpt w/ HD x 7 subsequent days - repeat WBC in AM # Suspected steal syndrome. Acute, new problem to this provider, further w/u indicated. Dusky R index finger and other vascular appearing ulcerations on fingers - d/w Dr. Dominguez, we agree that a fistulagram is best performed now to eval whether Dr. Wiggins needs to intervene on fistula acutely to ensure adequate flow/ healing of ulcerations causing the original cellulitis # ESRD. Cont T/Th/Sat HD # DM type 2. Cont lantus + ISS # Chronic diastolic CHF. Stable, cont HD # Hx CVA with residual aphasia. Cont asa, plavix, statin # PVD s/p LE amputation. Antiplatelet regimen as above # HTN. Chronic, cont bblocker Full code DVT PPLX - MAYRA Dispo - ADD 2/, pending improvement in cellulitis and vascular eval as outlined above Subjective: ongoing tenderness in finger, less pain at rest, responding to tylenol Objective: Vital Signs Temp Pulse Resp BP Pulse Ox 36.8 C 60 18 106/52 L 98 03/24/17 15:51 03/24/17 15:51 03/24/17 15:51 03/24/17 15:51 03/24/17 15:51 Laboratory Results 03/24/17 07:45 03/24/17 07:45 03/23/17 03/24/17 03/25/17 05:59 05:59 05:59 Intake Total 750 400 Balance 750 400 - Pending Discharge Pending Discharge Within 24 Hours: Yes Pending Discharge Date: 03/25/17 Pending Discharge Time: 11:00 - Physical Exam Constitutional: no apparent distress, not in pain, chronically ill appearing, uncomfortable Cardiovascular: systolic murmur (I. at all valves), other (non-papable R radial pulse, palpable R ulnar, palp thrill R fistula), No irregularly irregular , No tachycardia Respiratory: no respiratory distress, no rales or rhonchi, clear to auscultation Gastrointestinal: normoactive bowel sounds, soft, non-tender abdomen, no palpable masses, No distension Skin: other (dusky, blanchable R index finger w/ healing distal ulceration, some small scattered ulcerations on surrounding fingers, soft tissue edema) Musculoskeletal: other (limited ROM R index finger 2/2 edema, L BKA) Neurologic: AAOx3, sensation intact bilaterally, No weakness Psychiatric: not anxious, not encephalopathic, flat affect, No agitated ICD10 Worksheet Patient Problems: Problems Problem Status Onset Hypothyroidism Active Diabetes mellitus type 2 Acute Anemia Active Dyslipidemia Active Clostridium difficile infection Acute Pneumonia Acute COPD exacerbation Acute ESRD (end stage renal disease) on dialysis Acute Chronic Disease Mgmt/Transitional Care Acute MRSA (methicillin resistant Staphylococcus aureus) Acute 04/16/15 Shortness of breath Acute Congestive heart failure Acute Hypoxemia Acute Acute hyponatremia Acute Hypochloremia Acute Sepsis without acute organ dysfunction Acute Altered mental status Acute Chronic renal failure Acute Urinary tract infection Acute Elevated troponin Acute Anemia Acute Cellulitis of finger of right hand Acute
[2017-03-24] MEDS: ATORVASTATIN CALCIUM 40 MG TAB PO SCH (23:26)
[2017-03-25] MEDS: ONDANSETRON DISINTEGRATING 4 MG TAB PO PRN (04:42)
[2017-03-25] MEDS: LEVOTHYROXINE 125 MCG TAB PO SCH (04:42)
--- NOTE | 2017-03-25 07:50 | SOAPPROG ---
SOAP Progress Note Assessment/Plan: Assessment: 71 FEMALE WITH ISCHEMIC RT INDEX FINGER AND PAIN BUT NOT PARTICULARLY WORSE WITH DIALYSIS ? STEAL SYNDROME VS DIABETIC ISCHEMIA MAY NEED DRIL PROCEDURE Plan:ANGIO IN AM 03/25/17 07:44 Objective: Vital Signs Temp Pulse Resp BP Pulse Ox 36.5 C 57 L 12 114/60 99 03/25/17 07:08 03/25/17 07:08 03/25/17 07:08 03/25/17 07:08 03/25/17 07:08 Laboratory Results 03/24/17 07:45 03/24/17 07:45 03/24/17 03/25/17 03/26/17 05:59 05:59 05:59 Intake Total 400 200 Balance 400 200 ICD10 Worksheet Patient Problems: Problems Problem Status Onset Cellulitis of finger of right hand Acute Diabetes mellitus type 2 Acute ESRD (end stage renal disease) on dialysis Acute MRSA (methicillin resistant Staphylococcus aureus) Acute 04/16/15 Anemia Active Dyslipidemia Active Hypothyroidism Active Acute hyponatremia Acute Altered mental status Acute Anemia Acute COPD exacerbation Acute Chronic Disease Mgmt/Transitional Care Acute Chronic renal failure Acute Clostridium difficile infection Acute Congestive heart failure Acute Elevated troponin Acute Hypochloremia Acute Hypoxemia Acute Pneumonia Acute Sepsis without acute organ dysfunction Acute Shortness of breath Acute Urinary tract infection Acute
[2017-03-25] MEDS: LIDO/ZINC OX/CLOTRIMAZOLE (MAD) 116 GM CREAM TP SCH ×2 (08:21→23:36)
[2017-03-25] MEDS: PREGABALIN 50 MG CAP PO SCH ×3 (08:31→22:13)
[2017-03-25] MEDS: CALCIUM CARBONATE 500 MG CHEWABLE TAB PO SCH ×3 (08:32→18:17)
[2017-03-25] MEDS: ACETAMINOPHEN 325 MG TAB PO PRN ×2 (08:32→23:31)
[2017-03-25] MEDS: ASPIRIN 81 MG CHEWABLE TAB PO SCH (08:32)
[2017-03-25] MEDS: FUROSEMIDE 40 MG TAB PO SCH ×2 (08:32→14:57)
[2017-03-25] MEDS: CLOPIDOGREL BISULFATE 75 MG TAB PO SCH (08:33)
[2017-03-25] MEDS: METOPROLOL TARTRATE 25 MG TAB PO SCH ×2 (08:33→22:13)
[2017-03-25] MEDS: HEPARIN 5,000 UNIT/0.5 ML SYR SC SCH ×2 (08:36→22:16)
[2017-03-25] MEDS: TIOTROPIUM INHALER 18 MCG/DOSE 5 DOSE/MDI IH SCH (08:39)
--- NOTE | 2017-03-25 08:48 | WOCRNPDOC ---
WOCRN Advanced Assessment Note - Skin Integrity Problem, Advanced Assess Right Lateral Ankle Pressure Injury Dressing Type: Open to Air Exudate Amount: None Exudate Characteristic(s): None Yessenia Wound Tissue: Intact Yessenia Wound Swelling: None Wound Bed Color: Black Wound Bed Constitution: Stable Eschar Site Odor: None Site Measurement - Head-to-Toe Length X Width X Depth (cm): 0.8cmx0.6cmx eschar Pressure Injury Stage: Unstageable Pressure Injury Present on Admit: Yes (documented as R ankle scab) Skin Integrity Problem Comment: Discrete eschar-filled wound over R lateral malleolus, consistent w/ unstageable pressure injury. No fluctuance palpated, eschar is stable. Periwound skin is intact w/ no erythema or swelling. Suspect this is a long-standing injury r/t to how patient sits, with her R leg bowed out and the lateral aspect pressing into the mattress. Will initiate order for off-loading heel boot today, though given her preference for sitting w/ her R leg bowed out, she may not like this. Will also have nursung apply an accumax pump to her bed. accelerator technician Stefanie present to visualize site.
[2017-03-25 08:58] LABS: PLATELET COUNT 212 10^3/uL (150-400)
--- NOTE | 2017-03-25 09:26 | SOAPPROG ---
SOAP Progress Note Assessment/Plan: Assessment: Right index finger cellulitis with paronychia: MRI showed mild extensor tendon peritendinitis with no evidence of underlying osteomyelitis. Overall ROM continues to improve and erythema/edema is decreasing. Afebrile. Plan: Symptoms continue to improve, continue antibiotics per IM/ID. Appreciate their recommendations. Continue with conservative treatment: ice, elevation. Shown AROM exercises and encourage ROM and no heavy lifting. We will continue to F/U with her; for additional questions/concerns call our office at [phone]. D/C once stable and F/U in clinic following discharge. Patient advised to watch for fever/chills/NVD, change in ROM/strength, worsening numbness/tingling, change in heat/color of extremity, change in swelling and to seek immediate medical attention if seen. Patient agrees/understands this plan. Patient/plan discussed with Dr. Lane. 03/25/17 09:24 03/25/17 09:28 Subjective: Patient alert and able to respond appropriately to questions. Alone in room. No acute distress. States she has been doing AROM of her finger and has continued decrease in erythema/swelling. Has passed flatus and had BM; denies change in bowel movements, diarrhea. Denies in her b/l upper extremities worsening pain, abnormal numbness/tingling, change in ROM or strength, change in heat/color of extremities. Additionally, denies cough, congestion, chest pain, SOB, dyspnea, claudication, cough, fever, chills. Objective: Vital Signs Temp Pulse Resp BP Pulse Ox 36.5 C 59 L 16 114/60 96 03/25/17 07:08 03/25/17 08:41 03/25/17 08:41 03/25/17 08:33 03/25/17 08:41 Laboratory Results 03/25/17 08:45 03/25/17 08:45 03/24/17 03/25/17 03/26/17 05:59 05:59 05:59 Intake Total 400 200 Balance 400 200 Alert and oriented. NAD, atraumatic. Non-labored breathing, no diaphoresis noted. Calves soft/supple and NTTP b/l. Right IF: cellulitis of right index finger, not extending into the dorsum of hand. Limited AROM of right IF due to swelling/stiffness and severe pain to patient, but vastly improved since yesterday, with erythema and swelling significantly down. Paronychia is now dry with no abnormal bleeding/oozing/ discharge, change in heat around wound site noted. No abnormal bleeding/oozing/ discharge, worsening change in heat/color noted around the paronychia. Otherwise , brisk cap refill b/l. Extensor mechanisms and flexor mechanisms grossly intact in right IF. Gross sensation intact b/l with no focal deficits. MRI of right IF: cellulitis with mild peritendinitis of adjacent extensor tendons with no evidence of osteomyelitis. ICD10 Worksheet Patient Problems: Problems Problem Status Onset Cellulitis of finger of right hand Acute Diabetes mellitus type 2 Acute ESRD (end stage renal disease) on dialysis Acute MRSA (methicillin resistant Staphylococcus aureus) Acute 04/16/15 Anemia Active Dyslipidemia Active Hypothyroidism Active Acute hyponatremia Acute Altered mental status Acute Anemia Acute COPD exacerbation Acute Chronic Disease Mgmt/Transitional Care Acute Chronic renal failure Acute Clostridium difficile infection Acute Congestive heart failure Acute Elevated troponin Acute Hypochloremia Acute Hypoxemia Acute Pneumonia Acute Sepsis without acute organ dysfunction Acute Shortness of breath Acute Urinary tract infection Acute
--- NOTE | 2017-03-25 09:38 | SOAPPROG ---
SOAP Progress Note Assessment/Plan: Assessment: 71 FEMALE WITH ISCHEMIC RT INDEX FINGER AND PAIN BUT NOT PARTICULARLY WORSE WITH DIALYSIS ? STEAL SYNDROME VS DIABETIC ISCHEMIA MAY NEED DRIL PROCEDURE Plan:ANGIO IN AM 03/25/17 07:44 03/25/17 09:35 finger better/ afebrile/ angio today/ will check noninvasive studies Objective: Vital Signs Temp Pulse Resp BP Pulse Ox 36.5 C 59 L 16 114/60 96 03/25/17 07:08 03/25/17 08:41 03/25/17 08:41 03/25/17 08:33 03/25/17 08:41 Laboratory Results 03/25/17 08:45 03/25/17 08:45 03/24/17 03/25/17 03/26/17 05:59 05:59 05:59 Intake Total 400 200 Balance 400 200 ICD10 Worksheet Patient Problems: Problems Problem Status Onset Cellulitis of finger of right hand Acute Diabetes mellitus type 2 Acute ESRD (end stage renal disease) on dialysis Acute MRSA (methicillin resistant Staphylococcus aureus) Acute 04/16/15 Anemia Active Dyslipidemia Active Hypothyroidism Active Acute hyponatremia Acute Altered mental status Acute Anemia Acute COPD exacerbation Acute Chronic Disease Mgmt/Transitional Care Acute Chronic renal failure Acute Clostridium difficile infection Acute Congestive heart failure Acute Elevated troponin Acute Hypochloremia Acute Hypoxemia Acute Pneumonia Acute Sepsis without acute organ dysfunction Acute Shortness of breath Acute Urinary tract infection Acute
[2017-03-25] MEDS: INSULIN GLARGINE 100 UNITS/ML UNIT SC SCH ×2 (09:47→22:15)
[2017-03-25] MEDS: INSULIN LISPRO 100 UNIT/ML SC SCH ×3 (09:48→18:02)
[2017-03-25] MEDS ORDERED: HEPARIN 10,000 UNIT/10 ML MDV (1,000 UNIT/ML) IVP PRN (10:00)
[2017-03-25] MEDS ORDERED: MIDAZOLAM 2 MG/2 ML VIAL IVP PRN (10:00)
[2017-03-25] MEDS ORDERED: ALTEPLASE 2 MG VIAL IVP PRN (10:00)
[2017-03-25] MEDS ORDERED: GLUCAGON HCL 1 MG VIAL IVP PRN (10:00)
[2017-03-25] MEDS ORDERED: NALOXONE HCL 0.4 MG/ML INJ IVP PRN (10:00)
[2017-03-25] MEDS ORDERED: NS 1,000 ML IV SCH (10:00)
[2017-03-25] MEDS ORDERED: PROTAMINE SULFATE 50 MG/5 ML VIAL IVP PRN (10:00)
[2017-03-25] MEDS ORDERED: fentaNYL 100 MCG/2 ML INJ IVP PRN (10:00)
[2017-03-25] MEDS ORDERED: FLUMAZENIL 0.5 MG/5 ML MDV IVP PRN (10:00)
[2017-03-25] MEDS ORDERED: MEPERIDINE 25 MG/ML SYR IVP PRN (10:00)
[2017-03-25] MEDS ORDERED: MIDAZOLAM 2 MG/2 ML VIAL ONE (12:08)
[2017-03-25] MEDS ORDERED: fentaNYL 100 MCG/2 ML INJ ONE (12:08)
--- NOTE | 2017-03-25 12:08 | ASMTLACE ---
LACE Length of stay for Answers: 4-6 days current admission Acuity / Level of Answers: Yes Care: Did the patient have an inpatient admission? Comorbidities - select Answers: Cerebrovascular disease all that apply (CVA, TIA, aneurysms, vasc ular dementia) Congestive heart failure Diabetes (uncontrolled or controlled) Moderate or severe liver or renal disease Other # of Emergency department Answers: 1-2 visits in the last 6 months Score: 17 Date Signed: 03/25/2017 12:07 PM Electronically Signed By:Lily Nixon RN
--- NOTE | 2017-03-25 12:51 | PDDCSUM ---
Discharge Summary Discharge Summary: DISCHARGE SUMMARY FOLLOW-UP ITEMS: Fistulagram prior to discharge, Dr. Wiggins is office will contact patient if further action required DATE OF ADMISSION: 03/21/2017 DATE OF DISCHARGE: 03/25/2017 DISCHARGE DIAGNOSES: 1. Right finger cellulitis present on admission 2. Suspected steal syndrome 3. End-stage renal disease 4. Diabetes mellitus type 2 5. Chronic diastolic congestive heart failure 6. History of CVA 7. Peripheral arterial disease 8. Chronic hypertension CONSULTATIONS: Nephrology, General surgery, Orthopedics PROCEDURES / IMAGING: MRI demonstrating no overt tenosynovitis or septic arthritis, no osteomyelitis Fistulogram CHIEF COMPLAINT: Acute finger discoloration and ulceration SUBJECTIVE: Patient is feeling well at time discharge, her pain is well controlled with Tylenol PHYSICAL EXAM ON DISCHARGE: Systolic blood pressure is 110-150, heart rate 60, afebrile overnight, satting well on 2 L nasal cannula, alert awake oriented x3, sensation intact in all of her fingers on her right upper extremity, there is some tenderness over the distal aspect of her right index finger, 2 cm ulceration distally with soft tissue edema, purplish discoloration, erythema has faded, small ulceration on adjacent 3rd digit, range of motion impaired at the PIP and DIP of the right index finger, less impaired at the MCP, 1/6 systolic murmur at the sternum, faint inspiratory crackles in the bilateral bases, bowel sounds are present, abdomen is soft, left BKA site clean, right lower extremity with 1+ edema LABS ON DISCHARGE: White blood cell count 9500, hemoglobin 9.3, platelets [id number], creatinine 2.7, BUN 40, potassium 5.2, glucose 125 HOSPITAL COURSE BY PROBLEM: 1. Right index finger cellulitis. Present on admission, MRI ruled out tenosynovitis in septic arthritis, patient seen by Orthopedics, no surgical intervention recommended. The area did have erythema on presentation this has faded with treatment of IV antibiotics, there is some ongoing purplish discoloration which may be secondary to small vessel ischemia which will be further discussed below. I discussed the case Dr. Roman Keys, he did recommend ongoing IV vancomycin with hemodialysis, and this has been discussed with Dr. Dimitri Dominguez, we have agreed that the patient will receive 3 subsequent doses after discharge, with hemodialysis. The area should continue to be monitored be on the date of antibiotics, and sent to the Infectious Disease Clinic if deemed to be worsening. 2. Suspected steal syndrome. The patient has discoloration and distal digit ulceration consistent with ischemia, either small vessel or redirected from her fistula, her right radial pulse is very weak, right ulnar is stronger, she is undergoing a fistulogram prior to discharge and this will be evaluated by Dr. Wiggins for possible surgical intervention on the fistula in the near future. At the present time, the patient does not have acute digit ischemia, and she has 3 sec cap refill of her distal fingers. 3. End-stage renal disease. Patient will be continued on Tuesday hemodialysis. 4. Chronic diastolic congestive heart failure. No evidence of acute exacerbation. 5. Peripheral vascular disease. Status post left lower extremity amputation, patient's anti-platelet regimen consists of aspirin, Plavix, as well as a statin. DISCHARGE MEDICATIONS: Please see official discharge medication reconciliation sheet in chart , continue on home medications in addition to vancomycin 1 g after dialysis x3 subsequent dialysis sessions. DISCHARGE INSTRUCTIONS: Please follow up with Dr. Wiggins of contacted regarding your fistula. TIME SPENT: Greater than 30 minutes were spent on direct patient care, as well as discharge planning and preparation.
--- NOTE | 2017-03-25 13:03 | SOAPPROG ---
SOAP Progress Note Assessment/Plan: Assessment: Pt in IR. D/W Dr. Wiggins. He will review results, and assess timing and type of intervention. We will plan for HD here in am should she still be in house. Plan: 03/25/17 13:02 Objective: Vital Signs Temp Pulse Resp BP Pulse Ox 36.5 C 50 L 16 106/40 L 95 03/25/17 11:12 03/25/17 11:12 03/25/17 11:12 03/25/17 12:50 03/25/17 12:50 Laboratory Results 03/25/17 08:45 03/25/17 08:45 03/24/17 03/25/17 03/26/17 05:59 05:59 05:59 Intake Total 400 200 450 Balance 400 200 450 ICD10 Worksheet Patient Problems: Problems Problem Status Onset Cellulitis of finger of right hand Acute Diabetes mellitus type 2 Acute ESRD (end stage renal disease) on dialysis Acute MRSA (methicillin resistant Staphylococcus aureus) Acute 04/16/15 Anemia Active Dyslipidemia Active Hypothyroidism Active Acute hyponatremia Acute Altered mental status Acute Anemia Acute COPD exacerbation Acute Chronic Disease Mgmt/Transitional Care Acute Chronic renal failure Acute Clostridium difficile infection Acute Congestive heart failure Acute Elevated troponin Acute Hypochloremia Acute Hypoxemia Acute Pneumonia Acute Sepsis without acute organ dysfunction Acute Shortness of breath Acute Urinary tract infection Acute
--- NOTE | 2017-03-25 13:04 | PDPROPOC ---
Sedation Plan of Care ASA Classification: ASA 3 Planned drugs: fentanyl, midazolam Mallampati Score: Class 2 Mallampati Reference Image: Patient passed 3-3-2 rule?: Yes
--- NOTE | 2017-03-25 13:05 | PDRADPN ---
Radiology Procedure Note Date of Procedure: 03/25/17 Radiologist: Kat Zuniga Anesthesia: IV Sedation Pre-op Diagnosis: STEAL SYNDROME Post-op Diagnosis: SAME Indication: BLUE FINGERS ON RT HAND Procedure: RT ARM ANGIOGRAM Finding(s): STEAL SYNDROME, SEVERE Inf/Abcess present in the surg proc area at time of surgery?: No Complications: NONE
[2017-03-25] MEDS ORDERED: IOPAMIDOL (ISOVUE-300) 100 ML BTL ONE ×2 (13:12)
[2017-03-25] MEDS: ATORVASTATIN CALCIUM 40 MG TAB PO SCH (22:12)
[2017-03-26] MEDS: LEVOTHYROXINE 125 MCG TAB PO SCH (05:15)
[2017-03-26] MEDS: TIOTROPIUM INHALER 18 MCG/DOSE 5 DOSE/MDI IH SCH (08:10)
[2017-03-26] MEDS: PREGABALIN 50 MG CAP PO SCH ×3 (08:28→22:05)
[2017-03-26] MEDS: ASPIRIN 81 MG CHEWABLE TAB PO SCH (08:28)
[2017-03-26] MEDS: CALCIUM CARBONATE 500 MG CHEWABLE TAB PO SCH ×3 (08:28→16:59)
[2017-03-26] MEDS: MIDODRINE HCL 5 MG TAB PO SCH (08:29)
[2017-03-26] MEDS: CLOPIDOGREL BISULFATE 75 MG TAB PO SCH (08:29)
[2017-03-26] MEDS: FUROSEMIDE 40 MG TAB PO SCH ×2 (08:29→16:59)
[2017-03-26] MEDS: INSULIN GLARGINE 100 UNITS/ML UNIT SC SCH ×2 (08:30→22:13)
[2017-03-26] MEDS: HEPARIN 5,000 UNIT/0.5 ML SYR SC SCH ×2 (08:30→22:14)
[2017-03-26] MEDS: METOPROLOL TARTRATE 25 MG TAB PO SCH ×2 (08:32→22:06)
[2017-03-26] MEDS: LIDO/ZINC OX/CLOTRIMAZOLE (MAD) 116 GM CREAM TP SCH ×2 (09:15→22:16)
--- NOTE | 2017-03-26 10:08 | ASMTCMCOM ---
CM Note CM Note Notes: Spoke w/, pt's fistulagram shows ischemia, will likely need surgery on Tuesday, Dr Wiggins to consult. CM notified Les at [facility], updates faxed. At dc pt will need stretcher transport unless MV can worm picker. DC Plan: Return to [facility] Date Signed: 03/26/2017 10:07 AM Electronically Signed By:Lily Nixon RN
[2017-03-26] MEDS: INSULIN LISPRO 100 UNIT/ML SC SCH ×2 (11:33→17:13)
--- NOTE | 2017-03-26 11:49 | SOAPPROG ---
SOAP Progress Note Assessment/Plan: Assessment/Plan: R index finger cellulitis/paronychia -MRI reveals mild extensor peritendonitis, no evidence for osteo, cont nonop management of finger -ROM/erythema continues to improve -Cont current pain regimen, ice and elevation prn -Cont SCD for VTE mechanical prophylaxis -Cont Heparin for VTE chemoprophylaxis per medicine team -Cont abx (Vanco) per ID/medicine -Fistulagram shows ischemia, Dr. Wiggins consulted, possible surgical intervention Tuesday per CM note -Will cont to monitor 03/26/17 11:45 Subjective: Pt seen at bedside. She states her pain in her finger continues to improve daily, and that she has less discomfort with motion. She denies any new onset n /t, as well as any f/c/n/v. She states she is tolerating her diet/medications well. She notes she is leaving her room for dialysis shortly. She has no additional concerns or complaints at this time. Objective: Vital Signs Temp Pulse Resp BP Pulse Ox 36.8 C 54 L 16 120/53 L 97 03/26/17 11:05 03/26/17 11:05 03/26/17 11:05 03/26/17 11:05 03/26/17 11:05 Laboratory Results 03/25/17 08:45 03/25/17 08:45 03/25/17 03/26/17 03/27/17 05:59 05:59 05:59 Intake Total 200 550 Output Total 175 Balance 200 375 Pt seen at bedside, awoken for exam. Pt appears A&O, slightly slow to answer questions, non-toxic in appearance. NAD. Exam of the R hand reveals erythema globally over the index finger, improved since previous exam. No extension past the 2nd MCP joint is noted. Pt demonstrates limited AROM , flexing the MCP joint to approximately 45 deg. She is able to fully extend her finger, as well as perform AAROM of the PIP joint. No active drainage noted from paronychia site. No additional surrounding erythema, calor, discharge or induration noted. Pt is able to make a light assisted composite fist. She is intact to light touch sensation distally. DNJUDD CONNER. ICD10 Worksheet Patient Problems: Problems Problem Status Onset Cellulitis of finger of right hand Acute Diabetes mellitus type 2 Acute ESRD (end stage renal disease) on dialysis Acute MRSA (methicillin resistant Staphylococcus aureus) Acute 04/16/15 Anemia Active Dyslipidemia Active Hypothyroidism Active Acute hyponatremia Acute Altered mental status Acute Anemia Acute COPD exacerbation Acute Chronic Disease Mgmt/Transitional Care Acute Chronic renal failure Acute Clostridium difficile infection Acute Congestive heart failure Acute Elevated troponin Acute Hypochloremia Acute Hypoxemia Acute Pneumonia Acute Sepsis without acute organ dysfunction Acute Shortness of breath Acute Urinary tract infection Acute
--- NOTE | 2017-03-26 12:41 | SOAPPROG ---
SOAP Progress Note Assessment/Plan: Assessment: 71 FEMALE WITH ISCHEMIC RT INDEX FINGER AND PAIN BUT NOT PARTICULARLY WORSE WITH DIALYSIS ? STEAL SYNDROME VS DIABETIC ISCHEMIA MAY NEED DRIL PROCEDURE Plan:ANGIO IN AM 03/25/17 07:44 03/25/17 09:35 finger better/ afebrile/ angio today/ will check noninvasive studies 03/26/17 12:40 FINGER BETTER/BUT NO PALPABLE RADIAL PULSES/ ANGIO SHOWS SIGNIFICANT STEAL SYNDROME WITH PATENT THE DISTAL RUNOFF PATIENT WILL NEED A DRILL PROCEDURE WHICH WE CAN TRY TO SCHEDULE ON TUESDAY/ RISKS AND OPTIONS BEEN FULLY DISCUSSED/A DO NOT THINK SIMPLE BANDING WOULD BE ADEQUATE FOR THIS DEGREE OF ISCHEMIA Objective: Vital Signs Temp Pulse Resp BP Pulse Ox 36.8 C 54 L 16 120/53 L 97 03/26/17 11:05 03/26/17 11:05 03/26/17 11:05 03/26/17 11:05 03/26/17 11:05 Laboratory Results 03/25/17 08:45 03/25/17 08:45 03/25/17 03/26/17 03/27/17 05:59 05:59 05:59 Intake Total 200 550 Output Total 175 Balance 200 375 ICD10 Worksheet Patient Problems: Problems Problem Status Onset Cellulitis of finger of right hand Acute Diabetes mellitus type 2 Acute ESRD (end stage renal disease) on dialysis Acute MRSA (methicillin resistant Staphylococcus aureus) Acute 04/16/15 Anemia Active Dyslipidemia Active Hypothyroidism Active Acute hyponatremia Acute Altered mental status Acute Anemia Acute COPD exacerbation Acute Chronic Disease Mgmt/Transitional Care Acute Chronic renal failure Acute Clostridium difficile infection Acute Congestive heart failure Acute Elevated troponin Acute Hypochloremia Acute Hypoxemia Acute Pneumonia Acute Sepsis without acute organ dysfunction Acute Shortness of breath Acute Urinary tract infection Acute
--- NOTE | 2017-03-26 13:19 | SOAPPROG ---
SOAP Progress Note Assessment/Plan: Assessment: 1. ESRD Seen on dialysis. Doing well. 2. R hand lesions Ischemic. She is to undergo revision on Tuesday. Subjective: No complaints or requests Objective: Vital Signs Temp Pulse Resp BP Pulse Ox 36.8 C 54 L 16 120/53 L 97 03/26/17 11:05 03/26/17 11:05 03/26/17 11:05 03/26/17 11:05 03/26/17 11:05 Laboratory Results 03/25/17 08:45 03/25/17 08:45 03/25/17 03/26/17 03/27/17 05:59 05:59 05:59 Intake Total 200 550 Output Total 175 Balance 200 375 Physical Exam - Physical Exam General Appearance: no apparent distress Respiratory: lungs clear Cardiac/Chest: regular rate, rhythm Extremities: pedal edema, other (hand lesion stable. Access site ok) Neuro/Psych: normal mood/affect, oriented x 3 ICD10 Worksheet Patient Problems: Problems Problem Status Onset Cellulitis of finger of right hand Acute Diabetes mellitus type 2 Acute ESRD (end stage renal disease) on dialysis Acute MRSA (methicillin resistant Staphylococcus aureus) Acute 04/16/15 Anemia Active Dyslipidemia Active Hypothyroidism Active Acute hyponatremia Acute Altered mental status Acute Anemia Acute COPD exacerbation Acute Chronic Disease Mgmt/Transitional Care Acute Chronic renal failure Acute Clostridium difficile infection Acute Congestive heart failure Acute Elevated troponin Acute Hypochloremia Acute Hypoxemia Acute Pneumonia Acute Sepsis without acute organ dysfunction Acute Shortness of breath Acute Urinary tract infection Acute
--- NOTE | 2017-03-26 16:23 | HOSPPROG ---
Hospitalist Progress Note Assessment/Plan: Assessment: 71 yo F p/w Index finger cellulitis in setting of ESRD and ischemia from steal syndrome Plan: # Cellulitis. R index finger, POA, MRI ruled out tenosynovitis/septic arthritis - cont w/ IV Vanco through next Th dose # Severe steal syndrome. Present on fistulogram, d/w Dr. Wiggins, plan to operate on 03/28, monitor as inpt - US saphenous mapping 03/25 # ESRD. Cont T/Th/Sat HD # DM type 2. Cont lantus + ISS # Chronic diastolic CHF. Stable, cont HD # Hx CVA with residual aphasia. Cont asa, plavix, statin # PVD s/p LE amputation. Antiplatelet regimen as above # HTN. Chronic, cont bblocker Full code DVT PPLX - MAYRA Dispo - ADD 03/28 vs. 03/29, pending fistula surgery Subjective: minimal pain in finger Objective: Vital Signs Temp Pulse Resp BP Pulse Ox 36.8 C 54 L 16 120/53 L 97 03/26/17 11:05 03/26/17 11:05 03/26/17 11:05 03/26/17 11:05 03/26/17 11:05 Laboratory Results 03/25/17 08:45 03/25/17 08:45 03/25/17 03/26/17 03/27/17 05:59 05:59 05:59 Intake Total 200 550 Output Total 175 Balance 200 375 - Physical Exam Constitutional: no apparent distress, not in pain, chronically ill appearing, No uncomfortable Cardiovascular: systolic murmur (I/IV at all valves), edema (1+ RLE), other (5 sec cp refill R index finger, 3 sec 3rd digit, 2 sec 4th digit), No irregularly irregular, No tachycardia Respiratory: no respiratory distress, no rales or rhonchi, clear to auscultation Gastrointestinal: normoactive bowel sounds, soft, non-tender abdomen, no palpable masses, No distension Skin: other (purple discoloration R index finger, blanching, distal ulceration, soft tissue edema) Neurologic: AAOx3, sensation intact bilaterally Psychiatric: interacting appropriately, not anxious, not encephalopathic, thought process linear ICD10 Worksheet Patient Problems: Problems Problem Status Onset Hypothyroidism Active Diabetes mellitus type 2 Acute Anemia Active Dyslipidemia Active Clostridium difficile infection Acute Pneumonia Acute COPD exacerbation Acute ESRD (end stage renal disease) on dialysis Acute Chronic Disease Mgmt/Transitional Care Acute MRSA (methicillin resistant Staphylococcus aureus) Acute 04/16/15 Shortness of breath Acute Congestive heart failure Acute Hypoxemia Acute Acute hyponatremia Acute Hypochloremia Acute Sepsis without acute organ dysfunction Acute Altered mental status Acute Chronic renal failure Acute Urinary tract infection Acute Elevated troponin Acute Anemia Acute Cellulitis of finger of right hand Acute
[2017-03-26] MEDS ORDERED: VANCOMYCIN 1 GM in D5W 250 ML IV ONE (18:30)
[2017-03-26] MEDS: ATORVASTATIN CALCIUM 40 MG TAB PO SCH (22:05)
[2017-03-26] MEDS: ACETAMINOPHEN 325 MG TAB PO PRN (22:12)
[2017-03-27] MEDS: ONDANSETRON DISINTEGRATING 4 MG TAB PO PRN ×2 (04:04→16:01)
[2017-03-27] MEDS: ACETAMINOPHEN 325 MG TAB PO PRN ×3 (04:07→20:42)
[2017-03-27] MEDS: LEVOTHYROXINE 125 MCG TAB PO SCH (04:35)
[2017-03-27] MEDS: CALCIUM CARBONATE 500 MG CHEWABLE TAB PO SCH ×3 (08:13→17:41)
[2017-03-27] MEDS: INSULIN LISPRO 100 UNIT/ML SC SCH ×3 (08:14→17:17)
[2017-03-27] MEDS: TIOTROPIUM INHALER 18 MCG/DOSE 5 DOSE/MDI IH SCH (08:22)
[2017-03-27] MEDS: ASPIRIN 81 MG CHEWABLE TAB PO SCH (08:49)
[2017-03-27] MEDS: CLOPIDOGREL BISULFATE 75 MG TAB PO SCH (08:49)
[2017-03-27] MEDS: METOPROLOL TARTRATE 25 MG TAB PO SCH ×2 (08:50→20:44)
[2017-03-27] MEDS: FUROSEMIDE 40 MG TAB PO SCH ×2 (08:50→14:13)
[2017-03-27] MEDS: PREGABALIN 50 MG CAP PO SCH ×3 (08:52→21:05)
[2017-03-27] MEDS: HEPARIN 5,000 UNIT/0.5 ML SYR SC SCH ×2 (08:53→20:45)
--- NOTE | 2017-03-27 09:41 | HOSPPROG ---
Hospitalist Progress Note Assessment/Plan: Assessment: 71 yo F p/w index finger cellulitis in setting of ESRD and digit ischemia from steal syndrome Plan: # Cellulitis. R index finger, POA, MRI ruled out tenosynovitis/septic arthritis - cont w/ IV Vanco through next Th dose, d/w Dr. Keys, pharmacy to dose # Severe steal syndrome. Present on fistulogram, plan to operate on 03/[address] Wiggins, monitor as inpt until that time - US saphenous mapping 03/25 - ongoing limited ROM, purple 2nd digit RUE, distal vascular ulcerations, tenderness most prominent on dorsum - coags/Hgb/NPO ordered # ESRD. Cont T/Th/Sat HD # DM type 2. Cont lantus + ISS # Chronic diastolic CHF. Stable, cont HD # Hx CVA with residual aphasia. Cont asa, plavix, statin # PVD s/p LE amputation. Antiplatelet regimen as above # HTN. Chronic, cont bblocker Full code DVT PPLX - MAYRA Dispo - ADD 2/5 PM vs. 26 AM, pending fistula surgery and recovery, patient requesting to be discharged as soon as safely possible following procedure Subjective: ongoing pain w/ ROM/palpation, eating well, moving bowels Objective: Vital Signs Temp Pulse Resp BP Pulse Ox 36.3 C 60 16 115/68 98 03/27/17 08:00 03/27/17 08:50 03/27/17 08:00 03/27/17 08:50 03/27/17 08:00 Microbiology 03/21/17 19:50 Blood Culture - Final Blood Laboratory Results 03/25/17 08:45 03/26/17 17:00 03/26/17 03/27/17 03/28/17 05:59 05:59 05:59 Intake Total 550 Output Total 175 Balance 375 - Pending Discharge Pending Discharge Within 48 Hours: Yes Pending Discharge Date: 03/29/17 Pending Discharge Time: 11:00 - Physical Exam Constitutional: no apparent distress, not in pain, chronically ill appearing, No uncomfortable Cardiovascular: systolic murmur (distant HS, I/ at sternum), edema (1+ RLE), other (non-palpable pulse R radialus, diminised in R ulnar, audible thrill R AV fistula), No irregularly irregular, No tachycardia Respiratory: no respiratory distress, no rales or rhonchi, clear to auscultation Gastrointestinal: normoactive bowel sounds, soft, non-tender abdomen, no palpable masses Skin: other (purple 2nd digit, edematous, tender, distal ulceration on 2nd and 3rd) Musculoskeletal: other (unable to flex at 2nd digit RUE at DIP/PIP, MCP flexion intact) Neurologic: AAOx3, sensation intact bilaterally Psychiatric: interacting appropriately, not anxious, thought process linear, flat affect, No agitated ICD10 Worksheet Patient Problems: Problems Problem Status Onset Hypothyroidism Active Diabetes mellitus type 2 Acute Anemia Active Dyslipidemia Active Clostridium difficile infection Acute Pneumonia Acute COPD exacerbation Acute ESRD (end stage renal disease) on dialysis Acute Chronic Disease Mgmt/Transitional Care Acute MRSA (methicillin resistant Staphylococcus aureus) Acute 04/16/15 Shortness of breath Acute Congestive heart failure Acute Hypoxemia Acute Acute hyponatremia Acute Hypochloremia Acute Sepsis without acute organ dysfunction Acute Altered mental status Acute Chronic renal failure Acute Urinary tract infection Acute Elevated troponin Acute Anemia Acute Cellulitis of finger of right hand Acute
[2017-03-27] MEDS: INSULIN GLARGINE 100 UNITS/ML UNIT SC SCH ×2 (10:57→21:07)
[2017-03-27] MEDS: LIDO/ZINC OX/CLOTRIMAZOLE (MAD) 116 GM CREAM TP SCH ×2 (11:00→20:49)
--- NOTE | 2017-03-27 11:58 | SOAPPROG ---
SOAP Progress Note Assessment/Plan: Assessment: 1. ESRD Seen on dialysis. Doing well. Next Dialysis on Tuesday. 2. R hand steal/infection Dr Wiggins to perform revision on Tuesday. Subjective: In good spirits Objective: Vital Signs Temp Pulse Resp BP Pulse Ox 36.8 C 54 L 16 103/63 99 03/27/17 11:30 03/27/17 11:30 03/27/17 11:30 03/27/17 11:30 03/27/17 11:30 Microbiology 03/21/17 19:50 Blood Culture - Final Blood Laboratory Results 03/25/17 08:45 03/26/17 17:00 03/26/17 03/27/17 03/28/17 05:59 05:59 05:59 Intake Total 550 Output Total 175 Balance 375 Physical Exam - Physical Exam General Appearance: no apparent distress Respiratory: lungs clear Cardiac/Chest: regular rate, rhythm Extremities: pedal edema, other (Ischemic R hand digits stable) Neuro/Psych: normal mood/affect, oriented x 3 ICD10 Worksheet Patient Problems: Problems Problem Status Onset Cellulitis of finger of right hand Acute Diabetes mellitus type 2 Acute ESRD (end stage renal disease) on dialysis Acute MRSA (methicillin resistant Staphylococcus aureus) Acute 04/16/15 Anemia Active Dyslipidemia Active Hypothyroidism Active Acute hyponatremia Acute Altered mental status Acute Anemia Acute COPD exacerbation Acute Chronic Disease Mgmt/Transitional Care Acute Chronic renal failure Acute Clostridium difficile infection Acute Congestive heart failure Acute Elevated troponin Acute Hypochloremia Acute Hypoxemia Acute Pneumonia Acute Sepsis without acute organ dysfunction Acute Shortness of breath Acute Urinary tract infection Acute
--- NOTE | 2017-03-27 13:41 | SOAPPROG ---
[facility] Progress Note Assessment/Plan: Assessment: 71 FEMALE WITH ISCHEMIC RT INDEX FINGER AND PAIN BUT NOT PARTICULARLY WORSE WITH DIALYSIS ? STEAL SYNDROME VS DIABETIC ISCHEMIA MAY NEED DRIL PROCEDURE Plan:ANGIO IN AM 03/25/17 07:44 03/25/17 09:35 finger better/ afebrile/ angio today/ will check noninvasive studies 03/26/17 12:40 FINGER BETTER/BUT NO PALPABLE RADIAL PULSES/ ANGIO SHOWS SIGNIFICANT STEAL SYNDROME WITH PATENT THE DISTAL RUNOFF PATIENT WILL NEED A DRILL PROCEDURE WHICH WE CAN TRY TO SCHEDULE ON TUESDAY/ RISKS AND OPTIONS BEEN FULLY DISCUSSED/A DO NOT THINK SIMPLE BANDING WOULD BE ADEQUATE FOR THIS DEGREE OF ISCHEMIA 03/27/17 13:40 No real change/afebrile/comfortable/will proceed with DRIL procedure in the a.m. Objective: Vital Signs Temp Pulse Resp BP Pulse Ox 36.8 C 54 L 16 103/63 99 03/27/17 11:30 03/27/17 11:30 03/27/17 11:30 03/27/17 11:30 03/27/17 11:30 Microbiology 03/21/17 19:50 Blood Culture - Final Blood Laboratory Results 03/25/17 08:45 03/27/17 12:56 03/26/17 03/27/17 03/28/17 05:59 05:59 05:59 Intake Total 550 Output Total 175 Balance 375 ICD10 Worksheet Patient Problems: Problems Problem Status Onset Cellulitis of finger of right hand Acute Diabetes mellitus type 2 Acute ESRD (end stage renal disease) on dialysis Acute MRSA (methicillin resistant Staphylococcus aureus) Acute 04/16/15 Anemia Active Dyslipidemia Active Hypothyroidism Active Acute hyponatremia Acute Altered mental status Acute Anemia Acute COPD exacerbation Acute Chronic Disease Mgmt/Transitional Care Acute Chronic renal failure Acute Clostridium difficile infection Acute Congestive heart failure Acute Elevated troponin Acute Hypochloremia Acute Hypoxemia Acute Pneumonia Acute Sepsis without acute organ dysfunction Acute Shortness of breath Acute Urinary tract infection Acute
[2017-03-27] MEDS: oxyCODONE IR 5 MG TAB PO PRN ×2 (15:59→21:05)
[2017-03-27] MEDS: ATORVASTATIN CALCIUM 40 MG TAB PO SCH (20:44)
[2017-03-28] MEDS: ACETAMINOPHEN 325 MG TAB PO PRN ×4 (01:27→15:45)
[2017-03-28] MEDS: LEVOTHYROXINE 125 MCG TAB PO SCH (05:26)
[2017-03-28 05:52] LABS: INR 1.08 (0.83-1.16); PROTIME(PATIENT) 14.2 SEC (12.0-15.0)
[2017-03-28] MEDS ORDERED: ceFAZolin 2 GM/SWFI 2 GM/20 ML SYR IVP ONE (07:00)
--- NOTE | 2017-03-28 07:55 | SOAPPROG ---
SOAP Progress Note Assessment/Plan: Assessment: 1. ESRD- [facility] Next Dialysis on Tuesday. requires midodrine prior- significant edema on exam LE, UF may be limited by BP 2. R hand steal/infection Dr Wiggins to perform revision on Tuesday 3.Anemia CKD -Epo 10,000 units weekly 4. MBD of CKD -Phos at goal, TUMS binder -renal diet 5. Chronic hypotension with HD -midodrine prior Marianela Wayne MD [facility] pager [phone] 03/28/17 09:36 Subjective: Feels ok, no complaints. Tells me BP does run low at home and has to take midodrine prior to HD. No cp, sob. Plans for AVF revision today. Objective: Vital Signs Temp Pulse Resp BP Pulse Ox 36.6 C 56 L 18 99/44 L 96 03/28/17 07:28 03/28/17 07:28 03/28/17 07:28 03/28/17 07:28 03/28/17 07:28 Microbiology 03/21/17 19:50 Blood Culture - Final Blood Laboratory Results 03/28/17 05:00 03/28/17 05:00 03/27/17 03/28/17 03/29/17 05:59 05:59 05:59 Intake Total 450 Balance 450 PT 14.2 SEC (12.0-15.0) 03/28/17 05:00 INR 1.08 (0.83-1.16) 03/28/17 05:00 Physical Exam - Physical Exam General Appearance: alert, no apparent distress Neck: supple Respiratory: lungs clear Cardiac/Chest: regular rate, rhythm Abdomen: non-tender, soft Extremities: other (++edema bilat LE, 2nd finger ischemic appearing) Neuro/Psych: alert, oriented x 3 ICD10 Worksheet Patient Problems: Problems Problem Status Onset Cellulitis of finger of right hand Acute Diabetes mellitus type 2 Acute ESRD (end stage renal disease) on dialysis Acute MRSA (methicillin resistant Staphylococcus aureus) Acute 04/16/15 Anemia Active Dyslipidemia Active Hypothyroidism Active Acute hyponatremia Acute Altered mental status Acute Anemia Acute COPD exacerbation Acute Chronic Disease Mgmt/Transitional Care Acute Chronic renal failure Acute Clostridium difficile infection Acute Congestive heart failure Acute Elevated troponin Acute Hypochloremia Acute Hypoxemia Acute Pneumonia Acute Sepsis without acute organ dysfunction Acute Shortness of breath Acute Urinary tract infection Acute
[2017-03-28] MEDS: PREGABALIN 50 MG CAP PO SCH ×3 (09:03→21:55)
[2017-03-28] MEDS: TIOTROPIUM INHALER 18 MCG/DOSE 5 DOSE/MDI IH SCH (09:13)
[2017-03-28] MEDS: oxyCODONE IR 5 MG TAB PO PRN (09:27)
--- NOTE | 2017-03-28 10:31 | SOAPPROG ---
SOAP Progress Note Assessment/Plan: Assessment: Right index finger cellulitis with paronychia: continued improvement since last week. MRI showed mild extensor tendon peritendinitis with no evidence of underlying osteomyelitis. Overall ROM continues to improve and erythema/edema is decreasing. Afebrile at this time. Plan: Symptoms continue to improve, continue antibiotics per IM/ID. Appreciate their recommendations. Continue with conservative treatment: ice, elevation. Shown AROM exercises and encourage ROM and no heavy lifting. We will continue to F/U with her; for additional questions/concerns call our office at [phone]. D/C once stable and F/U in clinic following discharge. Patient advised to watch for fever/chills/NVD, change in ROM/strength, worsening numbness/tingling, change in heat/color of extremity, change in swelling and to seek immediate medical attention if seen. Patient agrees/understands this plan. Patient/plan discussed with Dr. Lane. Subjective: Patient alert and able to respond appropriately to questions. Alone in room. No acute distress. States she has been doing AROM of her finger and has continued decrease in erythema/swelling but still having pain. Has passed flatus and had BM; denies change in bowel movements, diarrhea. Denies in her b/l upper extremities worsening pain, abnormal numbness/tingling, change in ROM or strength, change in heat/color of extremities. Additionally, denies cough, congestion, chest pain, SOB, dyspnea, claudication, cough, fever, chills. Objective: Vital Signs Temp Pulse Resp BP Pulse Ox 36.6 C 56 L 18 127/56 H 96 03/28/17 07:28 03/28/17 07:28 03/28/17 07:28 03/28/17 10:29 03/28/17 07:28 Microbiology 03/21/17 19:50 Blood Culture - Final Blood Laboratory Results 03/28/17 05:00 03/28/17 05:00 03/27/17 03/28/17 03/29/17 05:59 05:59 05:59 Intake Total 450 Balance 450 PT 14.2 SEC (12.0-15.0) 03/28/17 05:00 INR 1.08 (0.83-1.16) 03/28/17 05:00 Alert and oriented. NAD, atraumatic. Non-labored breathing, no diaphoresis noted. Calves soft/supple and NTTP b/l. Right IF: cellulitis of right index finger, not extending into the dorsum of hand, continues to improve with decreased erythema/edema noted. Limited AROM of right IF due to swelling/stiffness and severe pain to patient, but vastly improved since yesterday, with erythema and swelling significantly down. Paronychia is now dry with no abnormal bleeding/oozing/discharge, change in heat around wound site noted. No abnormal bleeding/oozing/discharge, worsening change in heat/color noted around the paronychia. Otherwise, brisk cap refill b/ l. Extensor mechanisms and flexor mechanisms grossly intact in right IF. Gross sensation intact b/l with no focal deficits. MRI of right IF: cellulitis with mild peritendinitis of adjacent extensor tendons with no evidence of osteomyelitis. ICD10 Worksheet Patient Problems: Problems Problem Status Onset Cellulitis of finger of right hand Acute Diabetes mellitus type 2 Acute ESRD (end stage renal disease) on dialysis Acute MRSA (methicillin resistant Staphylococcus aureus) Acute 04/16/15 Anemia Active Dyslipidemia Active Hypothyroidism Active Acute hyponatremia Acute Altered mental status Acute Anemia Acute COPD exacerbation Acute Chronic Disease Mgmt/Transitional Care Acute Chronic renal failure Acute Clostridium difficile infection Acute Congestive heart failure Acute Elevated troponin Acute Hypochloremia Acute Hypoxemia Acute Pneumonia Acute Sepsis without acute organ dysfunction Acute Shortness of breath Acute Urinary tract infection Acute
[2017-03-28] MEDS: METOPROLOL TARTRATE 25 MG TAB PO SCH ×2 (10:50→22:15)
[2017-03-28] MEDS: LIDO/ZINC OX/CLOTRIMAZOLE (MAD) 116 GM CREAM TP SCH (10:53)
[2017-03-28] MEDS: CALCIUM CARBONATE 500 MG CHEWABLE TAB PO SCH ×3 (11:02→21:52)
[2017-03-28] MEDS: INSULIN LISPRO 100 UNIT/ML SC SCH ×4 (11:02→22:45)
[2017-03-28] MEDS: FUROSEMIDE 40 MG TAB PO SCH ×2 (11:03→19:25)
[2017-03-28] MEDS: INSULIN GLARGINE 100 UNITS/ML UNIT SC SCH ×2 (11:04→21:53)
--- NOTE | 2017-03-28 12:24 | SOAPPROG ---
SOAP Progress Note Assessment/Plan: Assessment/Plan: 71 Y F c RUE AVF and steal syndrome. To OR today for DRIL procedure. Risks and options discussed. Consent sent to floor. Continue NPO and hold chemical VTE ppx. Reviewed old operative notes with Dr. Wiggins today. S: hand is painful, has been that way for about a month. O: alert, nad RUE c good thrill. hand with dusky redness, weak radial pulse, dry superficial ulcer of 2nd finger. 03/28/17 12:18 Objective: Vital Signs Temp Pulse Resp BP Pulse Ox 36.8 C 57 L 18 112/50 L 97 03/28/17 11:25 03/28/17 11:25 03/28/17 11:25 03/28/17 11:25 03/28/17 11:25 Microbiology 03/21/17 19:50 Blood Culture - Final Blood Laboratory Results 03/28/17 05:00 03/28/17 05:00 03/27/17 03/28/17 03/29/17 05:59 05:59 05:59 Intake Total 450 Balance 450 PT 14.2 SEC (12.0-15.0) 03/28/17 05:00 INR 1.08 (0.83-1.16) 03/28/17 05:00 ICD10 Worksheet Patient Problems: Problems Problem Status Onset Cellulitis of finger of right hand Acute Diabetes mellitus type 2 Acute ESRD (end stage renal disease) on dialysis Acute MRSA (methicillin resistant Staphylococcus aureus) Acute 04/16/15 Anemia Active Dyslipidemia Active Hypothyroidism Active Acute hyponatremia Acute Altered mental status Acute Anemia Acute COPD exacerbation Acute Chronic Disease Mgmt/Transitional Care Acute Chronic renal failure Acute Clostridium difficile infection Acute Congestive heart failure Acute Elevated troponin Acute Hypochloremia Acute Hypoxemia Acute Pneumonia Acute Sepsis without acute organ dysfunction Acute Shortness of breath Acute Urinary tract infection Acute
[2017-03-28] MEDS: HEPARIN 5,000 UNIT/0.5 ML SYR SC SCH (12:45)
[2017-03-28] MEDS ORDERED: ceFAZolin 2 GM/SWFI 20 ML SYR IVP ONE (12:53)
--- NOTE | 2017-03-28 12:58 | PDANEPAE ---
ANE History of Present Illness R arm AV fistula revision w/ saphenous graft ANE Past Medical History - Cardiovascular History Hx Hypertension: Yes Hx Arrhythmias: Yes Hx Chest Pain: No Hx Coronary Artery / Peripheral Vascular Disease: No Hx CHF / Valvular Disease: No Hx Palpitations: No Cardiovascular History Comment: HEART MURMUR - Pulmonary History Hx COPD: Yes Hx Asthma/Reactive Airway Disease: No Hx Recent Upper Respiratory Infection: Yes Hx Oxygen in Use at Home: Yes O2 in Use at Home (L/minute): 2 Hx Sleep Apnea: Yes Sleep Apnea Screening Result - Last Documented: Positive - Neurologic History Hx Cerebrovascular Accident: No Hx Seizures: No Hx Dementia: No - Endocrine History Hx Diabetes: Yes Hypothyroid: No Hyperthyroid: No Obesity: yes Endocrine History Comment: CHECKS BLOOD SUGAR 4X A DAY - Renal History Hx Renal Disorders: Yes Renal History Comment: ESRD. KIDNEY SURGERY 2013 - Liver History Hx Hepatic Disorders: No - Neurological & Psychiatric Hx Hx Neurological and Psychiatric Disorders: Yes Neurological / Psychiatric History Comment: SLIGHTLY DEPRESSED - Cancer History Hx Cancer: No - Congenital Disorder History Hx Congenital Disorders: No - GI History GERD: moderate Hx Gastrointestinal Disorders: Yes Gastrointestinal History Comment: REFLUX - Chronic Pain History Chronic Pain: Yes (PHANTOMLEG PAIN) - Surgical History Prior Surgeries: EXC CLOT IN AV FISTULA RT ARM 03/19/13. HYSTERECTOMY 20 YEARS AGO TOTAL. LUMP REMOVED OFF KIDNEY LEFT 2012. AV FISTULA X2. LEFT BKA 06/2012 ANE Review of Systems Review of systems is: negative Review of Systems: - Exercise capacity Exercise capacity: <4 METS ANE Patient History - Allergies Allergies/Adverse Reactions: adhesive Allergy (Verified 07/12/13 12:29) hydrocodone Allergy (Verified 04/14/15 15:43) hydrocortisone [From Hydrocortone] Allergy (Verified 07/12/13 12:29) hydrocortisone acetate [From Hydrocortone] Allergy (Verified 07/12/13 12:29) hydrocortisone sod phosphate [From Hydrocortone] Allergy (Verified 07/12/13 12: 29) Sulfa (Sulfonamide Antibiotics) Allergy (Verified 07/12/13 12:29) - Home Medications Home medications: home medication list seen and reviewed Home Medications: Acetaminophen [Tylenol 325mg (*)] 650 mg PO Q4 PRN 12/25/12 [Last Taken 03:08] Nitroglycerin [Nitrostat 0.4 mg (*)] 0.4 mg SL PRN PRN 12/25/12 [Last Taken 03/08] Oxycodone Ir [Oxy Ir 5 mg (RX)] 2.5 mg PO BID PRN 12/25/12 [Last Taken 03/21/17 06:00] Polyethylene Glycol 3350 [Miralax 17 gm (*)] 17 gm PO DAILY PRN 12/25/12 [Last Taken Unknown] Aspirin [Aspirin 81mg (*)] 81 mg PO DAILY 07/12/13 [Last Taken 03/21/17] Furosemide [Lasix 80 MG (*)] 80 mg PO BID 01/21/15 [Last Taken 03/21/17 11:00] Midodrine HCl 5 mg PO TUTHSA@0900 01/21/15 [Last Taken 03/19/17] Tiotropium Inhaler [Spiriva Handihaler] 2 puffs IH DAILY 01/21/15 [Last Taken ] Atorvastatin Calcium [Lipitor 80 mg] 80 mg PO HS 12/14/16 [Last Taken 03/20/17] Calcium Carbonate [Tums 500MG (*)] 1,500 mg PO TID 12/14/16 [Last Taken 16:00] Clopidogrel Bisulfate [Clopidogrel] 75 mg PO DAILY 12/14/16 [Last Taken 03/21/17 ] Insulin Glargine [Lantus 100 UNITS/ML (*)] 3 units SC DAILY 12/14/16 [Last Taken 03/21/17] Insulin Glargine [Lantus 100 UNITS/ML (*)] 5 units SC HS 12/14/16 [Last Taken ] Ipratropium/Albuterol [Duoneb (*)] 3 ml IH Q4H PRN 12/14/16 [Last Taken Unknown] Magnesium Hydroxide [Milk of Magnesia] 30 ml PO DAILY PRN 12/14/16 [Last Taken 03/21/17] Metoprolol Tartrate [Lopressor 25 mg (*)] 12.5 mg PO BID 12/14/16 [Last Taken 11:00] Pregabalin [Lyrica 50mg (*)] 50 mg PO TID 12/14/16 [Last Taken 03/21/17 13:00] Calcium Polycarbophil 625 mg PO BID PRN 03/21/17 [Last Taken 03/21/17 11:00] Levothyroxine [Synthroid 125 mcg (*)] 125 mcg PO DAILY06 03/21/17 [Last Taken ] - NPO status NPO Since - Liquids (Date): 03/28/17 NPO Since - Liquids (Time): 08:30 NPO Since - Solids (Date): 04/18/17 NPO Since - Solids (Time): 02:00 - Anes Hx Anes Hx: no prior problems - Smoking Hx Smoking Status: Current every day smoker - Alcohol Use Alcohol Use: None ANE Labs/Vital Signs - Labs Result Diagrams: 03/28/17 05:00 03/28/17 05:00 - Vital Signs Blood Pressure: 112/50 Heart Rate: 57 Respiratory Rate: 18 O2 Sat (%): 97 Height: 152.4 cm Weight: 79.8 kg ANE Physical Exam - Airway Neck exam: FROM Mallampati Score: Class 1 Mouth exam: dentures - Pulmonary Pulmonary: no respiratory distress - Cardiovascular Cardiovascular: regular rate and rhythym - ASA Status ASA Status: IV ANE Anesthesia Plan Anesthesia Plan: general endotracheal anesthesia
[2017-03-28] MEDS ORDERED: fentaNYL 250 MCG/5 ML INJ ONE (13:03)
[2017-03-28] MEDS ORDERED: PROPOFOL 200 MG/20 ML VIAL ONE ×2 (13:03→16:16)
[2017-03-28] MEDS ORDERED: LIDOCAINE 2% 100 MG/5 ML SYR ONE (13:07)
[2017-03-28] MEDS ORDERED: ONDANSETRON 4 MG/2 ML VIAL ONE (13:07)
[2017-03-28] MEDS ORDERED: CISATRACURIUM BESYLATE 20 MG/10 ML VIAL IV ONE (13:07)
[2017-03-28] MEDS ORDERED: ROCURONIUM 50 MG/5 ML VIAL ONE (13:08)
[2017-03-28] MEDS ORDERED: DEXAMETHASONE 4 MG/ML VIAL ONE (13:08)
[2017-03-28] MEDS ORDERED: NS 500 ML IV SCH (13:15)
[2017-03-28] MEDS ORDERED: PROTAMINE SULFATE 50 MG/5 ML VIAL IVP ONE ×2 (13:28→20:46)
[2017-03-28] MEDS ORDERED: BUPIVACAINE 0.5% 30 ML SDV ONE (13:28)
[2017-03-28] MEDS ORDERED: THROMBIN (BOVINE) 20,000 UNIT SPRAY TP ONE (13:28)
[2017-03-28] MEDS ORDERED: THROMBIN (BOVINE) 5,000 UNIT VIAL TP ONE (13:28)
[2017-03-28] MEDS ORDERED: PAPAVERINE HCL 60 MG/2 ML SDV ONE (13:29)
--- NOTE | 2017-03-28 16:05 | PDANEPAE ---
ANE History of Present Illness esrd on HD, here for AVF ANE Past Medical History - Cardiovascular History Hx Hypertension: Yes Hx Arrhythmias: Yes Hx Chest Pain: No Hx Coronary Artery / Peripheral Vascular Disease: No Hx CHF / Valvular Disease: No Hx Palpitations: No Cardiovascular History Comment: HEART MURMUR - Pulmonary History Hx COPD: Yes Hx Asthma/Reactive Airway Disease: No Hx Recent Upper Respiratory Infection: Yes Hx Oxygen in Use at Home: Yes O2 in Use at Home (L/minute): 2 Hx Sleep Apnea: Yes Sleep Apnea Screening Result - Last Documented: Positive - Neurologic History Hx Cerebrovascular Accident: No Hx Seizures: No Hx Dementia: No - Endocrine History Hx Diabetes: Yes Hypothyroid: No Hyperthyroid: No Obesity: yes Endocrine History Comment: CHECKS BLOOD SUGAR 4X A DAY - Renal History Hx Renal Disorders: Yes Renal History Comment: ESRD. KIDNEY SURGERY 2012 - Liver History Hx Hepatic Disorders: No - Neurological & Psychiatric Hx Hx Neurological and Psychiatric Disorders: Yes Neurological / Psychiatric History Comment: SLIGHTLY DEPRESSED - Cancer History Hx Cancer: No - Congenital Disorder History Hx Congenital Disorders: No - GI History GERD: moderate Hx Gastrointestinal Disorders: Yes Gastrointestinal History Comment: REFLUX - Chronic Pain History Chronic Pain: Yes (PHANTOMLEG PAIN) - Surgical History Prior Surgeries: EXC CLOT IN AV FISTULA RT ARM 03/19/13. HYSTERECTOMY 20 YEARS AGO TOTAL. LUMP REMOVED OFF KIDNEY LEFT 2012. AV FISTULA X2. LEFT BKA 06/2012 ANE Review of Systems Review of Systems: - Exercise capacity Exercise capacity: >=4 METS ANE Patient History - Allergies Allergies/Adverse Reactions: adhesive Allergy (Verified 07/12/13 12:29) hydrocodone Allergy (Verified 04/14/15 15:43) hydrocortisone [From Hydrocortone] Allergy (Verified 07/12/13 12:29) hydrocortisone acetate [From Hydrocortone] Allergy (Verified 07/12/13 12:29) hydrocortisone sod phosphate [From Hydrocortone] Allergy (Verified 07/12/13 12: 29) Sulfa (Sulfonamide Antibiotics) Allergy (Verified 07/12/13 12:29) - Home Medications Home medications: home medication list seen and reviewed Home Medications: Acetaminophen [Tylenol 325mg (*)] 650 mg PO Q4 PRN 12/25/12 [Last Taken 03:08] Nitroglycerin [Nitrostat 0.4 mg (*)] 0.4 mg SL PRN PRN 12/25/12 [Last Taken 03/08] Oxycodone Ir [Oxy Ir 5 mg (RX)] 2.5 mg PO BID PRN 12/25/12 [Last Taken 03/21/17 06:00] Polyethylene Glycol 3350 [Miralax 17 gm (*)] 17 gm PO DAILY PRN 12/25/12 [Last Taken Unknown] Aspirin [Aspirin 81mg (*)] 81 mg PO DAILY 07/12/13 [Last Taken 03/21/17] Furosemide [Lasix 80 MG (*)] 80 mg PO BID 01/21/15 [Last Taken 03/21/17 11:00] Midodrine HCl 5 mg PO TUTHSA@0900 01/21/15 [Last Taken 03/19/17] Tiotropium Inhaler [Spiriva Handihaler] 2 puffs IH DAILY 01/21/15 [Last Taken ] Atorvastatin Calcium [Lipitor 80 mg] 80 mg PO HS 12/14/16 [Last Taken 03/20/17] Calcium Carbonate [Tums 500MG (*)] 1,500 mg PO TID 12/14/16 [Last Taken 16:00] Clopidogrel Bisulfate [Clopidogrel] 75 mg PO DAILY 12/14/16 [Last Taken 03/21/17 ] Insulin Glargine [Lantus 100 UNITS/ML (*)] 3 units SC DAILY 12/14/16 [Last Taken 03/21/17] Insulin Glargine [Lantus 100 UNITS/ML (*)] 5 units SC HS 12/14/16 [Last Taken ] Ipratropium/Albuterol [Duoneb (*)] 3 ml IH Q4H PRN 12/14/16 [Last Taken Unknown] Magnesium Hydroxide [Milk of Magnesia] 30 ml PO DAILY PRN 12/14/16 [Last Taken 03/21/17] Metoprolol Tartrate [Lopressor 25 mg (*)] 12.5 mg PO BID 12/14/16 [Last Taken 11:00] Pregabalin [Lyrica 50mg (*)] 50 mg PO TID 12/14/16 [Last Taken 03/21/17 13:00] Calcium Polycarbophil 625 mg PO BID PRN 03/21/17 [Last Taken 03/21/17 11:00] Levothyroxine [Synthroid 125 mcg (*)] 125 mcg PO DAILY06 03/21/17 [Last Taken ] - NPO status NPO Status: no food or drink >8 hours NPO Since - Liquids (Date): 03/28/17 NPO Since - Liquids (Time): 08:30 NPO Since - Solids (Date): 04/18/17 NPO Since - Solids (Time): 02:00 - Anes Hx Anes Hx: no prior problems - Smoking Hx Smoking Status: Current every day smoker - Alcohol Use Alcohol Use: None - Family Anes Hx Family Anes Hx: none ANE Labs/Vital Signs - Labs Result Diagrams: 03/28/17 05:00 03/28/17 05:00 - Vital Signs Blood Pressure: 112/50 Heart Rate: 57 Respiratory Rate: 18 O2 Sat (%): 97 Height: 152.4 cm Weight: 79.8 kg ANE Physical Exam - Airway Neck exam: FROM Mallampati Score: Class 2 Mouth exam: dentures - Pulmonary Pulmonary: no respiratory distress, clear to auscultation - Cardiovascular Cardiovascular: regular rate and rhythym, no murmur, rub, or gallop - ASA Status ASA Status: III
--- NOTE | 2017-03-28 17:54 | HOSPPROG ---
Hospitalist Progress Note Assessment/Plan: Chart reviewed but patient not seen as she is in the OR. Will see tomorrow. Please see Dr Fajardo's note from 03/27 for full details. Objective: Vital Signs Temp Pulse Resp BP Pulse Ox 36.7 C 57 L 18 112/50 L 97 03/28/17 15:02 03/28/17 16:05 03/28/17 16:05 03/28/17 16:05 03/28/17 16:05 Laboratory Results 03/28/17 05:00 03/28/17 05:00 03/27/17 03/28/17 03/29/17 05:59 05:59 05:59 Intake Total 450 Balance 450 PT 14.2 SEC (12.0-15.0) 03/28/17 05:00 INR 1.08 (0.83-1.16) 03/28/17 05:00 ICD10 Worksheet Patient Problems: Problems Problem Status Onset Hypothyroidism Active Diabetes mellitus type 2 Acute Anemia Active Dyslipidemia Active Clostridium difficile infection Acute Pneumonia Acute COPD exacerbation Acute ESRD (end stage renal disease) on dialysis Acute Chronic Disease Mgmt/Transitional Care Acute MRSA (methicillin resistant Staphylococcus aureus) Acute 04/16/15 Shortness of breath Acute Congestive heart failure Acute Hypoxemia Acute Acute hyponatremia Acute Hypochloremia Acute Sepsis without acute organ dysfunction Acute Altered mental status Acute Chronic renal failure Acute Urinary tract infection Acute Elevated troponin Acute Anemia Acute Cellulitis of finger of right hand Acute
[2017-03-28] MEDS: ASPIRIN 81 MG CHEWABLE TAB PO SCH (19:25)
[2017-03-28] MEDS ORDERED: DESMOPRESSIN ACETATE IV ONE (20:00)
[2017-03-28] MEDS ORDERED: NS IV ONE (20:00)
[2017-03-28] MEDS ORDERED: HYDROCODONE/APAP 5/325 TAB PO PRN (20:06)
[2017-03-28] MEDS ORDERED: ACETAMINOPHEN 500 MG TAB PO PRN (20:06)
[2017-03-28] MEDS ORDERED: OXYCODONE/APAP 5/325 TAB PO PRN (20:06)
[2017-03-28] MEDS ORDERED: fentaNYL 100 MCG/2 ML INJ IVP PRN (20:06)
[2017-03-28] MEDS ORDERED: NALOXONE HCL 0.4 MG/ML INJ IVP PRN (20:06)
[2017-03-28] MEDS ORDERED: ONDANSETRON 4 MG/2 ML VIAL IVP PRN (20:06)
[2017-03-28] MEDS ORDERED: HYDROmorphONE/DILAUDID 1 MG/ML INJ IVP PRN (20:24)
--- NOTE | 2017-03-28 20:27 | POSTOPPROG ---
Post Op Note Date of Operation: 03/28/17 Surgeon: Constantine Wiggins [employer] Technician: Jeana Dawson Anesthesiologist: Lorne Lainez Anesthesia: GET(General Endotracheal) Pre-op Diagnosis: CRF, Steal Syndrome, R hand ischemia, R 2nd finger ulceration Post-op Diagnosis: same Procedure: RUE AVF DRIL Procedure c LLE saphenous vein graft Findings: difficult hemostasis, AVF thrill weaker but present, +radial pulse Inf/Abcess present in the surg proc area at time of surgery?: No EBL: 200cc Complications: none
--- NOTE | 2017-03-28 20:28 | POSTANESTH ---
Post Anesthetic Evaluation Cardiovascular Status: Normal, Stable, Similar to Pre-Op Cond Respiratory Status: Normal, Stable, Similar to Pre-op Cond. Level of Consciousness/Mental Status: Can Participate in Eval, Alert and Oriented Pain Control: Adequate, Prn Tx Ordered Nausea/Vomiting Control: Adequate, Prn Tx Ordered Complications Possibly Related to Anesthesia: None Noted
[2017-03-28] MEDS ORDERED: D50W 25 GM/50 ML VIAL IVP PRN (21:30)
[2017-03-28] MEDS: ATORVASTATIN CALCIUM 40 MG TAB PO SCH (21:51)
[2017-03-29] MEDS: LIDO/ZINC OX/CLOTRIMAZOLE (MAD) 116 GM CREAM TP SCH ×2 (00:02→09:07)
[2017-03-29] MEDS: ACETAMINOPHEN 325 MG TAB PO PRN ×3 (02:03→15:54)
[2017-03-29] MEDS ORDERED: NS 500 ML IV ONE (04:15)
[2017-03-29] MEDS: LEVOTHYROXINE 125 MCG TAB PO SCH (05:36)
[2017-03-29] MEDS: oxyCODONE IR 5 MG TAB PO PRN ×2 (05:38→10:22)
--- NOTE | 2017-03-29 07:47 | SOAPPROG ---
SOAP Progress Note Assessment/Plan: Assessment: 1. ESRD- [facility] Next Dialysis today- I confirmed with surgery ok to access AVF requires midodrine prior- significant edema on exam LE, UF may be limited by BP 2. R hand steal/infection s/p AVF revision (DRILL) on 03/[address] Wiggins -ischemic 2nd R finger 3.Anemia CKD -Epo 10,000 units weekly 4. MBD of CKD -Phos at goal, TUMS binder -renal diet 5. Chronic hypotension with HD -midodrine prior Marianela Wayne MD [facility] pager [phone] 03/29/17 09:33 Subjective: Had AVF DRILL Procedure yesterday, tolerated well. Reports pain controlled. Hungry this am. No n/v, sob. Objective: Vital Signs Temp Pulse Resp BP Pulse Ox 36.2 C 76 18 113/41 L 100 03/29/17 04:00 03/29/17 05:52 03/29/17 05:52 03/29/17 05:52 03/29/17 05:52 Laboratory Results 03/28/17 05:00 03/28/17 05:00 03/28/17 03/29/17 03/30/17 05:59 05:59 05:59 Intake Total 450 300 Output Total 200 Balance 450 100 PT 14.2 SEC (12.0-15.0) 03/28/17 05:00 INR 1.08 (0.83-1.16) 03/28/17 05:00 Physical Exam - Physical Exam General Appearance: alert, no apparent distress EENT: other (mmm) Neck: supple Respiratory: lungs clear Cardiac/Chest: regular rate, rhythm Abdomen: non-tender, soft Skin: warm/dry Extremities: other (s/p AKA L, +edema R, RLE in boot, RUE AVF dressing c/d/i) Neuro/Psych: alert, oriented x 3 ICD10 Worksheet Patient Problems: Problems Problem Status Onset Cellulitis of finger of right hand Acute Diabetes mellitus type 2 Acute ESRD (end stage renal disease) on dialysis Acute MRSA (methicillin resistant Staphylococcus aureus) Acute 04/16/15 Anemia Active Dyslipidemia Active Hypothyroidism Active Acute hyponatremia Acute Altered mental status Acute Anemia Acute COPD exacerbation Acute Chronic Disease Mgmt/Transitional Care Acute Chronic renal failure Acute Clostridium difficile infection Acute Congestive heart failure Acute Elevated troponin Acute Hypochloremia Acute Hypoxemia Acute Pneumonia Acute Sepsis without acute organ dysfunction Acute Shortness of breath Acute Urinary tract infection Acute
[2017-03-29] MEDS: METOPROLOL TARTRATE 25 MG TAB PO SCH (09:00)
[2017-03-29] MEDS: ASPIRIN 81 MG CHEWABLE TAB PO SCH (09:03)
[2017-03-29] MEDS: INSULIN GLARGINE 100 UNITS/ML UNIT SC SCH (09:04)
[2017-03-29] MEDS: PREGABALIN 50 MG CAP PO SCH ×2 (09:04→17:39)
[2017-03-29] MEDS: INSULIN LISPRO 100 UNIT/ML SC SCH ×3 (09:05→19:32)
[2017-03-29] MEDS: CALCIUM CARBONATE 500 MG CHEWABLE TAB PO SCH ×3 (09:06→17:39)
[2017-03-29] MEDS: TIOTROPIUM INHALER 18 MCG/DOSE 5 DOSE/MDI IH SCH (09:08)
--- NOTE | 2017-03-29 10:39 | PDIAF ---
- Diagnosis Diagnosis: Cellulitis R index finger, ESRD w/ steal syndrome Code Status: Full Code - Medication Management Discharge Medications: Medications to Continue on Transfer Acetaminophen [Tylenol 325mg (*)] 650 mg PO Q4 PRN 12/25/12 [Last Taken 03:08] Nitroglycerin [Nitrostat 0.4 mg (*)] 0.4 mg SL PRN PRN 12/25/12 [Last Taken 03/08] Oxycodone Ir [Oxy Ir 5 mg (RX)] 2.5 mg PO BID PRN 12/25/12 [Last Taken 03/21/17 06:00] Polyethylene Glycol 3350 [Miralax 17 gm (*)] 17 gm PO DAILY PRN 12/25/12 [Last Taken Unknown] Aspirin [Aspirin 81mg (*)] 81 mg PO DAILY 07/12/13 [Last Taken 03/21/17] Furosemide [Lasix 80 MG (*)] 80 mg PO BID 01/21/15 [Last Taken 03/21/17 11:00] Midodrine HCl 5 mg PO TUTHSA@0900 01/21/15 [Last Taken 03/19/17] Tiotropium Inhaler [Spiriva Handihaler] 2 puffs IH DAILY 01/21/15 [Last Taken ] Atorvastatin Calcium [Lipitor 80 mg] 80 mg PO HS 12/14/16 [Last Taken 03/20/17] Calcium Carbonate [Tums 500MG (*)] 1,500 mg PO TID 12/14/16 [Last Taken 16:00] Clopidogrel Bisulfate [Clopidogrel] 75 mg PO DAILY 12/14/16 [Last Taken 03/21/17 ] Insulin Glargine [Lantus 100 UNITS/ML (*)] 3 units SC DAILY 12/14/16 [Last Taken 03/21/17] Insulin Glargine [Lantus 100 UNITS/ML (*)] 5 units SC HS 12/14/16 [Last Taken ] Ipratropium/Albuterol [Duoneb (*)] 3 ml IH Q4H PRN 12/14/16 [Last Taken Unknown] Magnesium Hydroxide [Milk of Magnesia] 30 ml PO DAILY PRN 12/14/16 [Last Taken 03/21/17] Metoprolol Tartrate [Lopressor 25 mg (*)] 12.5 mg PO BID 12/14/16 [Last Taken 11:00] Pregabalin [Lyrica 50mg (*)] 50 mg PO TID 12/14/16 [Last Taken 03/21/17 13:00] Calcium Polycarbophil 625 mg PO BID PRN 03/21/17 [Last Taken 03/21/17 11:00] Levothyroxine [Synthroid 125 mcg (*)] 125 mcg PO DAILY06 03/21/17 [Last Taken ] Lido/Zinc Ox/Clotrimazole Crm [Moisture Associated Dermatitis Cream] 1 porfirio TP BID cream 03/24/17 [Last Taken Unknown] Vancomycin HCl/Normal Saline [Vancomycin 1 gm (Premix)] 1 gm IV TUTHSA #3 bag [Last Taken Unknown] [employer] Antibiotics: Vancomycin 1gm IV TThSat [facility]ci Antibiotic Stop Date: 03/31/17 Discharge Medications: Refer to the Discharge Home Medication list for PRN reason. PICC Care - Routine: N/A - Orders Services needed: Home Care, Registered Nurse, Certified Career And Guidance Counselor Home Care Face to Face: I certify that this patient was under my care and that I had the required [id number] encounter meeting the encounter requirements on the discharge day. My findings support the fact that the patient is homebound as defined in Home Care Face to Face Continued: CMS Chapter 7 Medicare Benefits Manual 30.1.1 , The condition of the patient is such that there exists a normal inability to leave home and consequently, leaving home would require a considerable and taxing effort. Isolation Type: Contact Isolation Oxygen: 2 LPM continuous Diet Recommendation: no restrictions on diet, other Weigh Patient: at dialysis Zhou: Not applicable - Follow Up Care Current Providers and Referrals: Ray Dominguez MD [Medical Doctor] - (please contact if dialysis questions) Constantine Wiggins MD [Medical Doctor] - Patient,NotPresent [Unknown] - As per Instructions Baljinder Lane MD [Medical Doctor] - follow up in 1 week
[2017-03-29] MEDS: MIDODRINE HCL 5 MG TAB PO SCH (11:01)
[2017-03-29] MEDS: FUROSEMIDE 40 MG TAB PO SCH ×2 (11:56→18:33)
[2017-03-29] MEDS ORDERED: ALBUMIN 25% 100 ML IV ONE (12:45)
[2017-03-29] MEDS ORDERED: VANCOMYCIN 1 GM in D5W 250 ML IV ONE (15:00)
[2017-03-29 15:14] LABS: HEPATITIS B SURFACE ANTIGEN NEGATIVE (NEGATIVE)
--- NOTE | 2017-03-29 15:21 | SOAPPROG ---
SOAP Progress Note Assessment/Plan: Assessment/Plan: 71 Y F c RUE AVF and steal syndrome. s/p DRIL delores L saphenous V. harvesting. Seen with Dr. Wiggins earlier today. Wounds intact. Palpable radial pulse. AVF thrill present. Plan for HD today. If goes well, might be d/c'ed. S: no complaints. O: alert, nad RUE c good thrill. hand with dusky redness, stronger radial pulse, dry superficial ulcer of 2nd finger. 03/29/17 15:19 Objective: Vital Signs Temp Pulse Resp BP Pulse Ox 37.2 C 75 18 105/41 L 93 03/29/17 11:05 03/29/17 11:05 03/29/17 11:05 03/29/17 11:05 03/29/17 09:14 Laboratory Results 03/28/17 05:00 03/29/17 11:45 03/28/17 03/29/17 03/30/17 05:59 05:59 05:59 Intake Total 450 300 Output Total 200 Balance 450 100 PT 14.2 SEC (12.0-15.0) 03/28/17 05:00 INR 1.08 (0.83-1.16) 03/28/17 05:00 ICD10 Worksheet Patient Problems: Problems Problem Status Onset Cellulitis of finger of right hand Acute Diabetes mellitus type 2 Acute ESRD (end stage renal disease) on dialysis Acute MRSA (methicillin resistant Staphylococcus aureus) Acute 04/16/15 Anemia Active Dyslipidemia Active Hypothyroidism Active Acute hyponatremia Acute Altered mental status Acute Anemia Acute COPD exacerbation Acute Chronic Disease Mgmt/Transitional Care Acute Chronic renal failure Acute Clostridium difficile infection Acute Congestive heart failure Acute Elevated troponin Acute Hypochloremia Acute Hypoxemia Acute Pneumonia Acute Sepsis without acute organ dysfunction Acute Shortness of breath Acute Urinary tract infection Acute
[2017-03-29 15:32] LABS: HEPATITIS B CORE AB TOTAL NEGATIVE (NEGATIVE)
[2017-03-29 15:50] VITALS: TEMP 97.9
--- NOTE | 2017-03-29 18:38 | GDS ---
[f rep st] DISCHARGE SUMMARY ALL DIAGNOSES: 1. Cellulitis. 2. Severe fistula steal syndrome. 3. End-stage renal disease. 4. Diabetes mellitus type 2. 5. Chronic diastolic congestive heart failure. 6. History of cerebrovascular accident with residual aphasia. 7. Peripheral vascular disease, status post lower extremity amputation. 8. Hypertension. ALL CONSULTATIONS: 1. Nephrology. 2. Hand Surgery. IMPORTANT SURGERIES IN STUDIES: 1. Right upper extremity AVF DRIL procedure with left lower extremity saphenous vein graft by Dr. Melinda garcia. 2. Angiography on March 25, by Dr. Zuniga, showing high-grade steal syndrome from the right upper e xtremity fistula. 3. Upper extremity MRI showing evidence of cellulitis with adjacent peritendinitis extensor tendon. HOSPITAL COURSE BY PROBLEM: 1. Right cellulitis: This is due to an ischemic ulcer, was seen by Hand Surgery. MRI evaluated wit hout tenosynovitis or septic arthritis. Plan will be to continue IV vancomycin, the last dose will b e after her dialysis on 03/31/2017. 2. Fistula steal syndrome: She is status post a DRIL procedure by Dr. Wiggins. We were able to re-es tablish her radial pulse. She tells me that her hand feels better after this procedure. Should help her to heal her ischemic ulcer. 3. End-stage renal disease: She has been followed by Nephrology. She gets dialysis Tuesday, , and Tuesday. She will get dialysis prior to discharge. Notably, Renal will write for her last dose of vancomycin on the . I have discussed this with Dr. Ashraf. 4. Diabetes mellitus type 2: She has been on Lantus and sliding scale insulin. 5. History of a CVA: She is on aspirin, Plavix, and a statin. 6. Hypertension: Beta kenny. BILLING: I spent more than 30 minutes on the day of discharge coordinating care. DISPOSITION: She is discharged to her previous residence at [place]. /[id number]/MODL
[2017-03-29 19:18] VITALS: BP 157/75; PULSE 78; RESP 18; O2SAT 95
--- NOTE | 2017-03-30 09:00 | ASDISCHSUM ---
Discharge Information Plan Status:SNF Medically Cleared to Leave:03/28/2017 Discharge Date:03/29/2017 08:13 PM CM D/C Disposition: ADT D/C Disposition:Alf Facility Projected Discharge Date:03/29/2017 11:00 AM Transportation at D/C: Discharge Delay Reason: Follow-Up Date:03/29/2017 11:00 AM Discharge Slot: Final Diagnosis: Placement Information Referral Type:*Skilled Nursing/SNF Referral ID:[id number] Provider Name:Shantell Benton [place] Address 1:[address] Address 2: City:[place] Selection Factors: State:[place] Patient Contact Information Contact Name:RICKEY Relationship:Sister Address:[address] City:[facility] Phone: State/Zip Code:[place] [address] Email: Financial Information Financial Class: Primary Plan Desc:MEDICARE INPATIENT Primary Plan Number:[id number] Secondary Plan Desc:MED[place] Secondary Plan Number:[id number] Assessment Information [facility] Initial CM Assessment Living Arrangements What is your living Answers: Alone arrangement? Who do you live with? Type Of Residence What kind of residence do Answers: Alf Facility you live in? Type of Residence Facility Name Notes: [facility] Discharge Plan Comments Coordination Status Comments Notes: Pt is a 71 y/o female admitted for right index finger cellulitis, ESRD and diabetes. Therapies have been ordered and awaiting recommendations. Wound care is involved. Pt will most likely d/c back to [place] when medically stable. CM sent updates to [place]. CM to follow. Plan: [facility] Date Signed: 03/22/2017 10:02 AM Electronically Signed By:MALORIE Singh LACE LACE Length of stay for Answers: 4-6 days current admission Acuity / Level of Answers: Yes Care: Did the patient have an inpatient admission? Comorbidities - select Answers: Cerebrovascular disease all that apply (CVA, TIA, aneurysms, vasc ular dementia) Congestive heart failure Diabetes (uncontrolled or controlled) Moderate or severe liver or renal disease Other # of Emergency department Answers: 1-2 visits in the last 6 months Score: 17 Date Signed: 03/25/2017 12:07 PM Electronically Signed By:Lily Nixon RN [facility] CM Progress Note CM Note CM Note Notes: Pt not discharging today, per MD needs fistulagram. Denis at notified. DC Plan: Return to [place] Date Signed: 03/24/2017 03:31 PM Electronically Signed By:Lily Nixon RN [facility] CM Progress Note CM Note CM Note Notes: Spoke w/, pt's fistulagram shows ischemia, will likely need surgery on Tuesday, Dr Wiggins to consult. CM notified Les at [facility], updates faxed. At dc pt will need stretcher transport unless [facility] can picker machine operator. DC Plan: Return to [place] Date Signed: 03/26/2017 10:07 AM Electronically Signed By:Lily Nixon RN Case Management Discharge Plan Note Case Management Discharge Discharge Order Complete? Answers: Yes Patient to Obtain Answers: Other Notes: [facility] Medications Transportation Arranged Answers: [facility] W/C Transport will Pick (Date 03/29/2017 04:30 PM & Time) EMTALA Complete Answers: No Case Management Transport Answers: Yes Form Complete Faxed Final Orders Answers: Yes Agency/Facility Transfer Answers: Yes Report Printed & Faxed to Receiving Agency Family Notified Answers: Yes Notes: Spoke w/ sister Cyndy Discharge Comments Notes: Pt is being discharged today. sent d/c orders to [facility]. provided KASSY Morales w/ phone number to give report to [facility]. set up transportation w/ [place] through [place] (auth #: [id number]). CM notified [facility] of the picker machine operator time. CM available for changes. Plan: [facility] Date Signed: 03/29/2017 12:07 PM Electronically Signed By:MALORIE Singh Intervention Information Intervention Type:IM-Pt. Not Available Date of Service:03/29/2017 04:10 PM Patient Type:Inpatient Staff Member:Aan Paula De Jesus Hours: Discipline: Severity: Comment:Patient asked for Data Entry Coordinator to contact her sisterCyndy. I left a Personal Style Finderdczunilda martinez for a call back in order to go over e 'Important Message' form.
--- NOTE | 2017-04-03 13:57 | GOP ---
[f rep st] OPERATIVE REPORT DATE OF OPERATION: 03/28/2017 SURGEON: Constantine Wiggins MD FUEL HANDLER: MAXIMILIAN Skelton. PREOPERATIVE DIAGNOSIS: Chronic renal failure with arteriovenous fistula and steal syndrome of the r ight hand. POSTOPERATIVE DIAGNOSIS: Chronic renal failure with arteriovenous fistula and steal syndrome of the right hand. PROCEDURE PERFORMED: 1. Ultrasound vein mapping, right arm and left leg. 2. Saphenous vein bypass of the right arm arteriovenous fistula with distal revascularization and in terval ligation of the brachial artery. FINDINGS: Patient was found to have improved radial pulse at the wrist, still maintaining adequate f low through the fistula. ESTIMATED BLOOD LOSS: Less than 50 cc. DESCRIPTION OF PROCEDURE: The patient was taken to the operating room where she received satisfactor y general endotracheal anesthesia, placed in supine position with the right arm outstretched on an ar m board, prepped and draped in the usual sterile fashion. She also had her left groin prepped and dr aped in the usual sterile fashion. Using the ultrasound, the left leg saphenous vein was identified and marked. Appeared to be adequate for bypass. The brachial artery was also identified above and b elow the anastomosis. A longitudinal incision was made in the upper arm. Dissection extended down t hrough the subcutaneous tissue to the neurovascular bundle in the mid upper arm where the brachial ar bee was dissected free and controlled with vessel loops. A curvilinear incision was made in the ant ecubital space and dissection extended down to the brachial artery which was dissected down to the bi furcation of the radial and ulnar arteries. That too was controlled with vessel loops. After adequa te exposure a longitudinal incision was made in the left thigh and the saphenous vein was harvested f or 25 cm. It was ligated distally and proximally with 2-0 silk ties, and the graft was reversed for use as an arterial bypass. The brachial artery was exposed in the antecubital space. The proximal b rachial artery was doubly suture ligated with 3-0 Prolene krdaut-so-tiere sutures to stop the distal flow. The saphenous vein graft was then sutured onto the brachial artery just above the bifurcation, creating a 1 cm anastomosis with a running 6-0 Prolene suture. This appeared to flow well. The gra ft was tunneled underneath the skin bridge up to the brachial artery exposure in the upper arm. An e nd-to-side anastomosis was made at that point to the brachial artery again creating a 1 cm anastomosi s using 6-0 Prolene continuous suture. Flow was first established through the AV fistula and then th rough the graft back down to the hand. Both the radial arteries developed a pulse which was not ther e before, and the fingers were quite pink. The fistula had a decreased flow, but still adequate flow in the AV fistula. Wounds were irrigated. Hemostasis was assured. Topical thrombin was placed in both incisions and they were closed with 3-0 Vicryl for the subcu, 4-0 Monocryl subcuticular stitch f or the skin. The thigh incision was closed with a running 2-0 Vicryl for the subcutaneous tissue and skin christiano for the skin. She tolerated the procedure well, and she was taken to the recovery room in good condition. /[id number]/MODL
== END 2017-03-29 20:13 | DRG 252 ==
LOC: EDUNIT# → F3E 21:48
PROVIDERS: ADMIT Hospitalist; ATTEND Hospitalist
PROC: 5A1D70Z Performance of Urinary Filtration, Intermittent, Less than 6 Hours Per Day (ICD-10-PCS; 2017-03-22)
PROC: 06BQ0ZZ Excision of Left Saphenous Vein, Open Approach (ICD-10-PCS; principal; 2017-03-28 14:30)
PROC: 0317090 Bypass Right Brachial Artery to Right Upper Arm Artery with Autologous Venous Tissue, Open Approach (ICD-10-PCS; principal; 2017-03-28 14:30)
DX: T82.898A Other specified complication of vascular prosthetic devices, implants and grafts, initial encounter (principal); I13.11 Hypertensive heart and chronic kidney disease without heart failure, with stage 5 chronic kidney disease, or end stage renal disease; N18.6 End stage renal disease; I50.32 Chronic diastolic (congestive) heart failure; L03.011 Cellulitis of right finger; E11.9 Type 2 diabetes mellitus without complications; I73.9 Peripheral vascular disease, unspecified; I69.320 Aphasia following cerebral infarction; E03.9 Hypothyroidism, unspecified; L89.510 Pressure ulcer of right ankle, unstageable; J44.9 Chronic obstructive pulmonary disease, unspecified; E87.5 Hyperkalemia; D63.1 Anemia in chronic kidney disease; Z89.512 Acquired absence of left leg below knee; Z99.2 Dependence on renal dialysis; Z85.528 Personal history of other malignant neoplasm of kidney; Z79.4 Long term (current) use of insulin
CPT/HCPCS: 86704-90; 97162-GP; 97165-GO; 97530-GP; C1769; C1894; G8978-GP-CJ; G8979-GP-CI; G8987-GO-CL; G8988-GO-CL; G8989-GO-CL; J0690; J0885; J1100; J1170; J1644; J1815; J2001; J2250; J2405; J2440; J2597; J2704; J2720; J3010; J3370; P9047; Q9967

== ENCOUNTER 2017-04-02 15:08 | Inpatient (IN) | payer OTHER, MEDICAID ==
[2017-04-02] MEDS ORDERED: ONDANSETRON 4 MG/2 ML VIAL IVP PRN (15:35)
[2017-04-02] MEDS ORDERED: ONDANSETRON DISINTEGRATING 4 MG TAB PO PRN (15:35)
--- NOTE | 2017-04-02 16:40 | PDGENHP ---
History and Physical - Chief Complaint Acute malaise - History of Present Illness 71 yo F p/w acute, malaise characterized as feeling generally "unwell" at dialysis on 04/02/17, prompting transfer to [facility] ED without receiving HD tx. Onset of symptoms is 04/03/17 AM, and duration has been persistent all day. She continues to have some associated lightheadedness and generalized weakness, as well as discomfort located in the R index finger w/ healing ulceration, but patient endorses that the finger actually feels less painful than when she was discharged from [facility] 03/29/17. The patient claims that she did not have HD on ; she denies fever/chills/abd pain/diarrhea/cough/headache, and reports she has been taking all of her medications. History Information - Allergies/Home Medication List Allergies/Adverse Reactions: adhesive Allergy (Verified 07/12/13 12:29) hydrocodone Allergy (Verified 04/14/15 15:43) hydrocortisone [From Hydrocortone] Allergy (Verified 07/12/13 12:29) hydrocortisone acetate [From Hydrocortone] Allergy (Verified 07/12/13 12:29) hydrocortisone sod phosphate [From Hydrocortone] Allergy (Verified 07/12/13 12: 29) Sulfa (Sulfonamide Antibiotics) Allergy (Verified 07/12/13 12:29) Home Medications: Acetaminophen [Tylenol 325mg (*)] 650 mg PO Q6H PRN 12/25/12 [Last Taken ] Nitroglycerin [Nitrostat 0.4 mg (*)] 0.4 mg SL PRN PRN 12/25/12 [Last Taken 03/08] Oxycodone Ir [Oxy Ir 5 mg (RX)] 2.5 mg PO BID PRN 12/25/12 [Last Taken 04/01/17] Polyethylene Glycol 3350 [Miralax 17 gm (*)] 17 gm PO DAILY PRN 12/25/12 [Last Taken Unknown] Furosemide [Lasix 80 MG (*)] 80 mg PO BID 01/21/15 [Last Taken 04/01/17] Midodrine HCl 5 mg PO TUTHSA@0900 01/21/15 [Last Taken 04/02/17] Tiotropium Inhaler [Spiriva Handihaler] 2 puffs IH DAILY 01/21/15 [Last Taken ] Atorvastatin Calcium [Lipitor 80 mg] 80 mg PO DAILY 12/14/16 [Last Taken ] Calcium Carbonate [Tums 500MG (*)] 1,500 mg PO TID 12/14/16 [Last Taken 04/01/17 ] Clopidogrel Bisulfate [Clopidogrel] 75 mg PO DAILY 12/14/16 [Last Taken 04/01/17 ] Insulin Glargine [Lantus 100 UNITS/ML (*)] 3 units SC DAILY 12/14/16 [Last Taken 04/01/17 AM] Insulin Glargine [Lantus 100 UNITS/ML (*)] 5 units SC HS 12/14/16 [Last Taken HS] Metoprolol Tartrate [Lopressor 25 mg (*)] 12.5 mg PO BID 12/14/16 [Last Taken ] Pregabalin [Lyrica 50mg (*)] 50 mg PO TID 12/14/16 [Last Taken 04/01/17] Levothyroxine [Synthroid 125 mcg (*)] 125 mcg PO DAILY06 03/21/17 [Last Taken ] Aspirin [Aspirin 81mg (*)] 81 mg PO DAILY 04/02/17 [Last Taken 04/01/17] Calcium Polycarbophil [FIBERCON] 1,250 mg PO BID 04/02/17 [Last Taken 04/01/17] Lactulose [Enulose] 30 ml PO BID PRN 04/02/17 [Last Taken Unknown] Levalbuterol 1.25 mg [Xopenex 1.25MG Neb (*)] 1.25 mg IH BID PRN 04/02/17 [Last Taken Unknown] Midodrine HCl 5 mg PO TUTHSA 04/02/17 [Last Taken 04/02/17] I have personally reviewed and updated: family history, medical history, social history, surgical history - Past Medical History CHF (chronic diastolic), COPD (w/ chronic hypoxic respiratory failure), CVA (w/ chronic aphasia), diabetes type 1, ESRD (TThSat HD), fibromyalgia, GERD, hypertension, hyperlipidemia, peripheral artery disease (w/ LLE BKA) Additional medical history: Renal Cell Carcinoma s/p nephrectomy. Grave's Disease. Carotid Stenosis. AVF steal syndrome. RUE cellulitis/digit ischemia ulcers - Surgical History Additional surgical history: left BKA. 03/28/17 RUE DRIL procedure by Dr. Wiggins for Steal Syndrome - Family History Positive for: diabetes type II - Social History Smoking Status: Former smoker Alcohol Use: None Drug Use: None Additional social history: lives at [place] Review of Systems Review of Systems: ROS: 10pt was reviewed & negative except for what was stated in HPI & below Constitutional: Reports: malaise, weakness Muscolosketal: Reports: other (R index finger pain, edema, skin ulceration) Neurological: Reports: other (lightheadedness) Physical Exam Physical Exam: Constitutional: no apparent distress, not in pain, chronically ill appearing, uncomfortable Eyes: PERRL, anicteric sclera, EOMI Ears, Nose, Mouth, Throat: moist mucous membranes, hearing normal, ears appear normal, no oral mucosal ulcers Cardiovascular: systolic murmur (II/ at sternum), edema (1+ RLE), No irregularly irregular, No tachycardia Respiratory: inspiratory crackles (bilat bases), No reduced air movement, No expiratory wheeze, No bronchial breath sounds, No respiratory distress Gastrointestinal: normoactive bowel sounds, soft, non-tender abdomen, no palpable masses, No distension Skin: other (purplish R index finger and 3rd digit w/ distal ulcerations) Musculoskeletal: other (reduced ROM R index finger DIP and PIP w/ soft tissue edema, improved from a week ago) Neurologic: AAOx3, sensation intact bilaterally (upper ext), No facial droop Psychiatric: not anxious, not encephalopathic, flat affect, other (lethargic but arousable, concentration 5/7), No agitated Assessment & Plan Assessment: 71 yo F p/w acute general malaise in setting of acute on chronic anemia, acute hepatitis Plan: # Anemia. Acute on chronic, new problem to this provider, further w/u indicated. Has baseline anemia of ESRD, but review of outside records (03/28/17 labs) demonstrates discharge Hgb level 8.6, so she has clearly had an acute decline - get FOB, iron studies retic count - get PICC, then transfuse 1u PRBC, gauge whether she feels systemically better after - repeat Hgb level in AM - rec Epo w/ HD # Leukocytosis. Acute, new problem, further w/u indicated. Unclear etiology, most recent WBC 9,500 03/25/17 and last dose of Vanco was 03/31/17 for R index finger cellulitis, at risk for bacteremia given recent DRIL to RUE fistula - suspect a different cause, not from the digit cellulitis - d/w Dr. Antwan Chong at [facility] ED, he informed me SBP 100s and HR 50s, no e/o sepsis, safe for transfer - get blood cx on arrival, RVP, PCT, CXR - will get ID consult in AM given numerous possible sources # Hepatitis. Acute, new prob, further w/u. Most recent outpt AST wnl from (reviewed outside records from previous hospitalization), now w/ acute rise, possibly shock liver w/ recently low SBPs (80s) prior to arrival and SBP 60s on 03/28/17 following DRIL - monitor liver panel - check acute viral hep panel, has not been vaccinated for HBV - check RU US # ESRD. Missed HD today, d/w Dr. Diaz, we agree that it appears she received HD via AVF on 03/28, and it is unclear whether she received it on schedule 03/30 - regarding IV access, we agreed to use PICC on , access AVF in RUE tomorrow # Chronic diastolic CHF. No e/o exacerbation, monitor s/p blood # Chronic hypoxic respiratory failure. Cont home supp o2 # PAD. Chronic, cont asa/plavix/statin Diet. Renal PPx. High risk, hep SC, but hold until FOB received Code. Full Dispo. ADD uncertain, anticipated LOS > 48hrs warranting inpatient hospitalization for reasonable medical necessity including anemia, hepatitis, and likely occult infxn.
--- NOTE | 2017-04-02 18:50 | PDMN ---
Medical Necessity Medical necessity: C/M review: est. > 2 MN LOS for eval and TX of acute on chronic anemia, acute - leukocytosis, acute hepatitis requiring planned Infectious disease consult, Nephrology consult (to be notified by Dr. Antwan Chong of [facility] ED), Wound care consult, PICC placement, 1 unit PRBCs, recommend hemodialysis 04/03/2017, ongoing cardiac monitoring, pulse oximetry, supplemental O2, acute inpt PT/OT, comorbid ESRD on chronic hemodialysis (/ /Tue), chronic diastolic CHF, chronic hypoxic respiratory failure, peripheral artery disease with left lower extremity BKA, type 1 diabetes, COPD, fibromyalgia, GERD, hypertension, hyperlipidemia, right index finger with healing ulceration present on admit, history of renal cell carcinoma S/P nephrectomy, Grave's disease, carotid stenosis, AVF steal syndrome, right upper extremity cellulitis / digit ischemia ulcers per H/P.
[2017-04-02] MEDS ORDERED: ALTEPLASE 2 MG VIAL IVP PRN (19:13)
[2017-04-02] MEDS ORDERED: LEVALBUTEROL 1.25 MG/3 ML DEYVIAL IH PRN (20:56)
[2017-04-02] MEDS ORDERED: POLYETHYLENE GLYCOL 3350 17 GM PKT PO PRN (20:56)
[2017-04-02] MEDS ORDERED: NITROGLYCERIN 0.4 MG BTL SL PRN (20:56)
[2017-04-02] MEDS ORDERED: LACTULOSE 20 GM/30 ML UDCUP PO PRN (21:15)
[2017-04-02] MEDS ORDERED: LIDOCAINE 1% 2 ML INJ ID PRN (21:21)
[2017-04-02] MEDS ORDERED: LIDOCAINE 1% 2 ML INJ ONE (21:23)
[2017-04-02] MEDS: CALCIUM POLYCARBOPHIL 1250 MG PO SCH (22:42)
[2017-04-02] MEDS: CALCIUM CARBONATE 500 MG CHEWABLE TAB PO SCH (22:44)
[2017-04-02] MEDS: HEPARIN 5,000 UNIT/0.5 ML SYR SC SCH (22:46)
[2017-04-02] MEDS: INSULIN GLARGINE 100 UNITS/ML UNIT SC SCH (22:46)
[2017-04-02 22:57] LABS: PLATELET COUNT 174 10^3/uL (150-400)
[2017-04-02 23:10] LABS: CREATINE KINASE 79 IU/L (0-156); INR 1.98 (0.83-1.16); PROTIME(PATIENT) 22.6 SEC (12.0-15.0)
[2017-04-03 06:00] LABS: PLATELET COUNT 155 10^3/uL (150-400)
[2017-04-03] MEDS ORDERED: MIDODRINE HCL 5 MG TAB PO ONE (06:45)
[2017-04-03] MEDS: HEPARIN 5,000 UNIT/0.5 ML SYR SC SCH ×3 (06:47→21:37)
[2017-04-03] MEDS: LEVOTHYROXINE 125 MCG TAB PO SCH (06:47)
--- NOTE | 2017-04-03 10:08 | SOAPPROG ---
SOAP Progress Note Assessment/Plan: Assessment: pt seen for hypotension and anemia with crf now with lfts elevated nonicteric, abd soft, nontender us shows stones with normal bile duct on dialysis currently/ inr 4 Plan:may have cholecystitis but not febrile or very tender but often minimal signs in diabetics/ will follow 04/03/17 10:05 Objective: Vital Signs Temp Pulse Resp BP Pulse Ox 36.6 C 64 20 89/50 L 92 04/03/17 08:00 04/03/17 08:00 04/03/17 08:00 04/03/17 08:00 04/03/17 08:00 Microbiology 04/02/17 22:30 Respiratory Panel (PCR) - Final Nasal, Sinus - Swab No Organism Detected Laboratory Results 04/03/17 05:45 04/03/17 05:45 04/02/17 04/03/17 04/04/17 05:59 05:59 05:59 Intake Total 920 Output Total 0 Balance 920 PT 22.6 SEC (12.0-15.0) H 04/02/17 22:30 INR 1.98 (0.83-1.16) H 04/02/17 22:30 ICD10 Worksheet Patient Problems: Problems Problem Status Onset Anemia Active Dyslipidemia Active Hypothyroidism Active Acute hyponatremia Acute Altered mental status Acute Anemia Acute COPD exacerbation Acute Cellulitis of finger of right hand Acute Chronic Disease Mgmt/Transitional Care Acute Chronic renal failure Acute Clostridium difficile infection Acute Congestive heart failure Acute Diabetes mellitus type 2 Acute ESRD (end stage renal disease) on dialysis Acute Elevated troponin Acute Hypochloremia Acute Hypoxemia Acute MRSA (methicillin resistant Staphylococcus aureus) Acute 04/16/15 Pneumonia Acute Sepsis without acute organ dysfunction Acute Shortness of breath Acute Urinary tract infection Acute
--- NOTE | 2017-04-03 10:11 | SOAPPROG ---
SOAP Progress Note Assessment/Plan: Assessment: pt seen for hypotension and anemia with crf now with lfts elevated nonicteric, abd soft, nontender us shows stones with normal bile duct on dialysis currently/ inr 2, does not appear to be on coumadin/ Plan:may have cholecystitis but not febrile or very tender but often minimal signs in diabetics/ will follow 04/03/17 10:05 04/03/17 10:09 why is her INR 2/ will need correction if surgery anticipated Objective: Vital Signs Temp Pulse Resp BP Pulse Ox 36.6 C 64 20 89/50 L 92 04/03/17 08:00 04/03/17 08:00 04/03/17 08:00 04/03/17 08:00 04/03/17 08:00 Microbiology 04/02/17 22:30 Respiratory Panel (PCR) - Final Nasal, Sinus - Swab No Organism Detected Laboratory Results 04/03/17 05:45 04/03/17 05:45 04/02/17 04/03/17 04/04/17 05:59 05:59 05:59 Intake Total 920 Output Total 0 Balance 920 PT 22.6 SEC (12.0-15.0) H 04/02/17 22:30 INR 1.98 (0.83-1.16) H 04/02/17 22:30 ICD10 Worksheet Patient Problems: Problems Problem Status Onset Anemia Active Dyslipidemia Active Hypothyroidism Active Acute hyponatremia Acute Altered mental status Acute Anemia Acute COPD exacerbation Acute Cellulitis of finger of right hand Acute Chronic Disease Mgmt/Transitional Care Acute Chronic renal failure Acute Clostridium difficile infection Acute Congestive heart failure Acute Diabetes mellitus type 2 Acute ESRD (end stage renal disease) on dialysis Acute Elevated troponin Acute Hypochloremia Acute Hypoxemia Acute MRSA (methicillin resistant Staphylococcus aureus) Acute 04/16/15 Pneumonia Acute Sepsis without acute organ dysfunction Acute Shortness of breath Acute Urinary tract infection Acute
--- NOTE | 2017-04-03 10:21 | HOSPPROG ---
Hospitalist Progress Note Assessment/Plan: DIAGNOSES: -acute hypotension, ? etiology -differential diagnosis includes infection, low volume status from dialysis, something related to her anemia -severe acute on chronic anemia, unknown cause, with no noted bleeding; chronic anemia of renal disease -? relation of this to low BPs -elevated hepatic transaminases and new coagulopathy, sonographic evidence of cholecystitis, but no pain or nausea or fever: Normal bilirubin but her INR is up at 2 -? etiology of these findings or relation to low BPs -differential diagnosis includes ischemic injury from hypotension, gallstone disease and cholecystitis, viral illness, or other; the coagulopathy would be more consistent with a hypotensive injury then with gallstone disease -elevated cardiac troponin at 0.5, uncertain etiologies but suspect that this is due to her hypotension and her renal disease, doubt a acute coronary syndrome ; no EKG has been done at this time but there is no angina, heart failure, or new arrhythmia so far -ongoing left index finger cellulitis with healing wound there, has been receiving vancomycin 3 times weekly after dialysis, antibiotic still indicated; I reviewed cultures done during recent hospitalization and there was no growth from any cultures so that organism for this infection is unknown -recent revision of dialysis access last week -ESRD on chronic hemodialysis -DM2 -adequate control of sugars at this time -hx of CHF, appears stable and compensated -hx of copd, appears stable and compensated -history of peripheral artery disease -history of hypertension currently with low blood pressures I reviewed the patient's case in detail today with Dr. Constantine Wiggins and Dr. Sammy Wolff, also seen today on multidisciplinary rounds PLANS: -she is just starting hemodialysis now, no fluid will be removed and will follow her hemodynamics very closely -may need to consider giving her some albumin or other fluid resuscitation depending on how her pressures progress this morning -at this time would not do any more transfusion but will follow her blood counts and blood pressures closely and consider the need for that -will add antibiotic coverage for her possible cholecystitis, and continue her current vancomycin for her finger, but will review with Infectious Disease as I did not see any positive cultures before the vancomycin; I suspect the vancomycin was chosen so that she could get convenient outpatient IV antibiotics for her finger and not because of a resistant organism -check 12 lead EKG as the troponin was elevated -Repeat troponin to be sure that it is not trending upward; follow liver enzymes and coagulation studies closely along with bilirubin -Dr. Wiggins will assess the patient for the abnormalities of liver enzymes in the ultrasound abnormalities; she may possibly need a cholecystitis, she may need other imaging studies to look for a stone or other cause of this syndrome -continue her usual treatments for her chronic heart pulmonary and diabetes concerns SUBJECTIVE: Patient actually says she feels significantly better than yesterday now. She denies any localizing symptoms of any nature No abdominal pain, nausea, and her appetite she says has been good throughout all of this Denies any acute dyspnea, no chest pain or angina-like symptoms OBJECTIVE Vitals reviewed: Remains hypotensive vital signs otherwise stable and without fever; on review of the blood pressures during her most recent hospital stay she was here for a few days in blood pressures generally were in the 115-125 systolic range, though she did have a period of a few hours where she had systolics in the 60s on 1 day. 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: All sinus Exam: Groggy but awake and oriented skin warm dry color ok; she still has moderate cellulitis of the left index finger extending on to the distal portion of her dorsal left hand over the corresponding metacarpal resps not labored lungs clear BSs heart regular abd soft nondistended nontender, bowel sounds present limbs warm, no edema iv site ok Laboratory data: White blood cell count remains elevated, hemoglobin is up appropriately after 1 U of transfusion red cells overnight Liver enzymes remain significantly elevated in the same range, with normal bilirubin but INR is measured at 1.98 without anticoagulants, it was 1.0 last week Sodium remains low at 129, potassium good no acid issues Abdominal ultrasound is done this morning I reviewed the images report from that , there is some evidence of cholecystitis but without ductal dilation or other acute liver changes Objective: Vital Signs Temp Pulse Resp BP Pulse Ox 36.6 C 64 20 89/50 L 92 04/03/17 08:00 04/03/17 08:00 04/03/17 08:00 04/03/17 08:00 04/03/17 08:00 Microbiology 04/02/17 22:30 Respiratory Panel (PCR) - Final Nasal, Sinus - Swab No Organism Detected Laboratory Results 04/03/17 05:45 04/03/17 05:45 04/02/17 04/03/17 04/04/17 06:59 06:59 06:59 Intake Total 920 Output Total 0 Balance 920 PT 22.6 SEC (12.0-15.0) H 04/02/17 22:30 INR 1.98 (0.83-1.16) H 04/02/17 22:30 - Time Spent With Patient Time Spent with Patient: greater than 35 minutes Time Spent with Patient: Greater than 35 minutes spent on this patients care, greater than 50% of time spent counseling, educating, and coordinating care regarding the above mentioned plan. ICD10 Worksheet Patient Problems: Problems Problem Status Onset Anemia Active Dyslipidemia Active Hypothyroidism Active Acute hyponatremia Acute Altered mental status Acute Anemia Acute COPD exacerbation Acute Cellulitis of finger of right hand Acute Chronic Disease Mgmt/Transitional Care Acute Chronic renal failure Acute Clostridium difficile infection Acute Congestive heart failure Acute Diabetes mellitus type 2 Acute ESRD (end stage renal disease) on dialysis Acute Elevated troponin Acute Hypochloremia Acute Hypoxemia Acute MRSA (methicillin resistant Staphylococcus aureus) Acute 04/16/15 Pneumonia Acute Sepsis without acute organ dysfunction Acute Shortness of breath Acute Urinary tract infection Acute
[2017-04-03] MEDS: INSULIN GLARGINE 100 UNITS/ML UNIT SC SCH ×2 (10:30→21:58)
[2017-04-03] MEDS: CLOPIDOGREL BISULFATE 75 MG TAB PO SCH (10:31)
[2017-04-03] MEDS: ASPIRIN 81 MG CHEWABLE TAB PO SCH (10:31)
[2017-04-03] MEDS: ATORVASTATIN CALCIUM 40 MG TAB PO SCH (10:33)
[2017-04-03] MEDS: CALCIUM CARBONATE 500 MG CHEWABLE TAB PO SCH ×3 (10:33→21:37)
[2017-04-03] MEDS: CALCIUM POLYCARBOPHIL 1250 MG PO SCH (10:33)
[2017-04-03] MEDS: TIOTROPIUM INHALER 18 MCG/DOSE 5 DOSE/MDI IH SCH (10:59)
[2017-04-03] MEDS ORDERED: VANCOMYCIN HCL/NORMAL SALINE 250 ML IV ONE (11:30)
--- NOTE | 2017-04-03 11:39 | ASMTCMCOM ---
CM Note CM Note Notes: 71 year old female admitted for malaise, anemia, hepatitis, She has a hx of CHF, CVA, Aphasia, COPD, DM-1, ESRD, on Chronic O2, GERD, PAD. Her sister Cyndy [phone] is listed as her medical decision maker. Patient lives at [place] and will return when discharged. CM to follow. Date Signed: 04/03/2017 11:38 AM Electronically Signed By:Tawanna Kovacs LCSW
--- NOTE | 2017-04-03 11:54 | PDCONSULT ---
[employer] Caster Note: Renal Consult - Chief Complaint Hand pain - History of Present Illness The patient is a 71 y/o F with a complex PMH who is a dialysis patient at [facility] who presented to the unit yesterday and refused dialysis stating "I 'm not feeling well." The patient was recently admitted to [facility] for revision of her AVF on 03/30, then dialyzed on 03/31 prior to discharge. She was first sent to the [facility] ED however transferred here due to lack of vascular access. She was found to have a transaminitis as well as worsening of her anemia. This AM, she is on dialysis with low BP's. She is c/o hand pain and has a small MRSA infection. She is a chronic smoker and continues to smoke at least 1/2 pack per day using that hand. History Information - Allergies/Home Medication List Allergies/Adverse Reactions: adhesive Allergy (Verified 07/12/13 12:29) hydrocodone Allergy (Verified 04/14/15 15:43) hydrocortisone [From Hydrocortone] Allergy (Verified 07/12/13 12:29) hydrocortisone acetate [From Hydrocortone] Allergy (Verified 07/12/13 12:29) hydrocortisone sod phosphate [From Hydrocortone] Allergy (Verified 07/12/13 12: 29) Sulfa (Sulfonamide Antibiotics) Allergy (Verified 07/12/13 12:29) Home Medications: Acetaminophen [Tylenol 325mg (*)] 650 mg PO Q6H PRN 12/25/12 [Last Taken ] Nitroglycerin [Nitrostat 0.4 mg (*)] 0.4 mg SL PRN PRN 12/25/12 [Last Taken 03/08] Oxycodone Ir [Oxy Ir 5 mg (RX)] 2.5 mg PO BID PRN 12/25/12 [Last Taken 04/01/17] Polyethylene Glycol 3350 [Miralax 17 gm (*)] 17 gm PO DAILY PRN 12/25/12 [Last Taken Unknown] Furosemide [Lasix 80 MG (*)] 80 mg PO BID 01/21/15 [Last Taken 04/01/17] Midodrine HCl 5 mg PO TUTHSA@0900 01/21/15 [Last Taken 04/02/17] Tiotropium Inhaler [Spiriva Handihaler] 2 puffs IH DAILY 01/21/15 [Last Taken ] Atorvastatin Calcium [Lipitor 80 mg] 80 mg PO DAILY 12/14/16 [Last Taken ] Calcium Carbonate [Tums 500MG (*)] 1,500 mg PO TID 12/14/16 [Last Taken 04/01/17 ] Clopidogrel Bisulfate [Clopidogrel] 75 mg PO DAILY 12/14/16 [Last Taken 04/01/17 ] Insulin Glargine [Lantus 100 UNITS/ML (*)] 3 units SC DAILY 12/14/16 [Last Taken 04/01/17 AM] Insulin Glargine [Lantus 100 UNITS/ML (*)] 5 units SC HS 12/14/16 [Last Taken HS] Metoprolol Tartrate [Lopressor 25 mg (*)] 12.5 mg PO BID 12/14/16 [Last Taken ] Pregabalin [Lyrica 50mg (*)] 50 mg PO TID 12/14/16 [Last Taken 04/01/17] Levothyroxine [Synthroid 125 mcg (*)] 125 mcg PO DAILY06 03/21/17 [Last Taken ] Aspirin [Aspirin 81mg (*)] 81 mg PO DAILY 04/02/17 [Last Taken 04/01/17] Calcium Polycarbophil [FIBERCON] 1,250 mg PO BID 04/02/17 [Last Taken 04/01/17] Lactulose [Enulose] 30 ml PO BID PRN 04/02/17 [Last Taken Unknown] Levalbuterol 1.25 mg [Xopenex 1.25MG Neb (*)] 1.25 mg IH BID PRN 04/02/17 [Last Taken Unknown] Midodrine HCl 5 mg PO TUTHSA 04/02/17 [Last Taken 04/02/17] - Past Medical History CHF (chronic diastolic), COPD (w/ chronic hypoxic respiratory failure), CVA (w/ chronic aphasia), diabetes type 1, ESRD (TThSat HD), fibromyalgia, GERD, hypertension, hyperlipidemia, peripheral artery disease (w/ LLE BKA) Additional medical history: Renal Cell Carcinoma s/p nephrectomy. Grave's Disease. Carotid Stenosis. AVF steal syndrome. RUE cellulitis/digit ischemia ulcers - Surgical History Additional surgical history: left BKA. 03/28/17 RUE DRIL procedure by Dr. Wiggins for Steal Syndrome - Family History Positive for: diabetes type II - Social History Smoking Status: Former smoker Alcohol Use: None Drug Use: None Additional social history: lives at [place] Review of Systems Review of Systems: 10pt was reviewed & negative except for what was stated in HPI & below Temp Pulse Resp BP Pulse Ox 36.6 C 60 18 89/50 L 94 04/03/17 08:00 04/03/17 10:55 04/03/17 10:55 04/03/17 08:00 04/03/17 10:55 O2 (L/minute) 2 Physical Exam Constitutional: mild distress, pale Eyes: EOMI, no trauma Ears, Nose, Mouth, Throat: moist mucous membranes, no thyromegaly Cardiovascular: 2+ edema, RRR, murmur LUSB Respiratory: inspiratory crackles b/l Gastrointestinal: soft, ND, NT Skin: ulcerations R index finger Musculoskeletal: UE AVF brachiobasilic with christiano in place, some oozing from wound Neurologic: AAOx3, non-focal Psychiatric: Cooperative, depressed mood WBC 14.19 10^3/uL (3.80-9.50) H 04/03/17 05:45 RBC 2.93 10^6/uL (4.18-5.33) L 04/03/17 05:45 Hgb 8.8 g/dL (12.6-16.3) L 04/03/17 05:45 Hct 27.6 % (38.0-47.0) L D 04/03/17 05:45 MCV 94.2 fL (81.5-99.8) 04/03/17 05:45 MCH 30.0 pg (27.9-34.1) 04/03/17 05:45 MCHC 31.9 g/dL (32.4-36.7) L 04/03/17 05:45 RDW 20.7 % (11.5-15.2) H 04/03/17 05:45 Plt Count 155 10^3/uL (150-400) 04/03/17 05:45 MPV 11.7 fL (8.7-11.7) 04/03/17 05:45 Neut % (Auto) Not Reported 04/03/17 05:45 Lymph % (Auto) Not Reported 04/03/17 05:45 [place] % (Auto) Not Reported 04/03/17 05:45 Eos % (Auto) Not Reported 04/03/17 05:45 Baso % (Auto) Not Reported 04/03/17 05:45 Nucleat RBC Rel Count 2.2 % (0.0-0.2) H 04/03/17 05:45 Absolute Neuts (auto) Not Reported 04/03/17 05:45 Absolute Lymphs (auto) Not Reported 04/03/17 05:45 Absolute Monos (auto) Not Reported 04/03/17 05:45 Absolute Eos (auto) Not Reported 04/03/17 05:45 Absolute Basos (auto) Not Reported 04/03/17 05:45 Absolute Nucleated RBC 0.31 10^3/uL (0-0.01) H 04/03/17 05:45 Immature Gran % Not Reported 04/03/17 05:45 Seg Neutrophils % 72 % 04/03/17 05:45 Band Neutrophils % 7 % 04/03/17 05:45 Lymphocytes % 8 % 04/03/17 05:45 Monocytes % 7 % 04/03/17 05:45 Eosinophils % 1 % 04/02/17 22:30 Basophils % 2 % 04/03/17 05:45 Metamyelocytes % 3 % 04/03/17 05:45 Myelocytes % 1 % 04/03/17 05:45 Immature Gran # Not Reported 04/03/17 05:45 Absolute Seg Neuts 10.22 10^/uL (1.70-6.50) H 04/03/17 05:45 Absolute Band Neuts 0.99 10^3/uL (0.00-0.70) H 04/03/17 05:45 Absolute Lymphocytes 1.14 10^3/uL (1.00-3.00) 04/03/17 05:45 Absolute Monocytes 0.99 10^3/uL (0.30-0.80) H 04/03/17 05:45 Absolute Eosinophils 0.14 10^3/uL (0.03-0.40) 04/02/17 22:30 Absolute Basophils 0.28 10^3/uL (0.02-0.10) H 04/03/17 05:45 Absolute Metamyelocyte 0.43 10^3/mL (0.00-0.00) H 04/03/17 05:45 Absolute Myelocytes 0.14 10^3/mL (0.00-0.00) H 04/03/17 05:45 Nucleated RBCs 2 /100 WBC (0-0) H 04/03/17 05:45 Platelet Estimate ADEQUATE (ADEQ) 04/03/17 05:45 Large Platelets PRESENT H 04/03/17 05:45 Polychromasia 1+ H 04/03/17 05:45 Hypochromasia 1+ H 04/03/17 05:45 Microcytic Cells 1+ H 04/03/17 05:45 Oval Macrocytes 1+ H 04/03/17 05:45 Smear Review By Evert MUNOZ MD 04/03/17 05:45 Absolute Retic 0.237 10^6/uL (0.050-0.117) H 04/02/17 22:30 Percent Retic 11.61 % (0.98-2.67) H 04/02/17 22:30 Corrected Retic Count 5.1 % (0.6-2.6) H 04/02/17 22:30 PT 22.6 SEC (12.0-15.0) H 04/02/17 22:30 INR 1.98 (0.83-1.16) H 04/02/17 22:30 APTT 42.2 SEC (23.0-38.0) H 04/02/17 22:30 Sodium 129 mEq/L (135-145) L 04/03/17 05:45 Potassium 4.0 mEq/L (3.5-5.2) 04/03/17 05:45 Chloride 90 mEq/L (97-110) L 04/03/17 05:45 Carbon Dioxide 24 mEq/l (22-31) 04/03/17 05:45 Anion Gap 15 mEq/L (8-16) 04/03/17 05:45 BUN 44 mg/dL (7-23) H 04/03/17 05:45 Creatinine 3.8 mg/dL (0.6-1.0) H 04/03/17 05:45 Estimated GFR 12 04/03/17 05:45 Glucose 148 mg/dL (70-100) H 04/03/17 05:45 POC Glucose 164 mg/dL (70-100) H 04/02/17 22:36 Calcium 8.7 mg/dL (8.5-10.4) 04/03/17 05:45 Phosphorus 3.8 mg/dL (2.5-4.5) 04/02/17 22:30 Magnesium 1.9 mg/dL (1.6-2.3) 04/02/17 22:30 Iron 87.0 mcg/dL (37.0-170.0) 04/02/17 22:30 TIBC 205 ug/dL (260-490) L 04/02/17 22:30 Iron Saturation 42 % (20-55) 04/02/17 22:30 Ferritin > 19992.0 ng/mL (6.2-264.0) H 04/02/17 22:30 Total Bilirubin 1.3 mg/dL (0.1-1.4) 04/03/17 05:45 AST 1134 IU/L (14-46) H 04/03/17 05:45 ALT 666 IU/L (9-52) H 04/03/17 05:45 Alkaline Phosphatase 162 IU/L (38-126) H 04/03/17 05:45 Creatine Kinase 79 IU/L (0-156) 04/02/17 22:30 Troponin I 0.597 ng/mL (0.000-0.034) H 04/02/17 22:30 Total Protein 5.4 g/dL (6.3-8.2) L 04/03/17 05:45 Albumin 3.0 g/dL (3.5-5.0) L 04/03/17 05:45 Procalcitonin 1.32 ng/mL (0.02-0.10) H 04/02/17 22:30 Patient ABO/Rh A POSITIVE 04/02/17 23:35 Antibody Screen NEGATIVE 04/02/17 23:35 Crossmatch IS Only See Detail 04/02/17 23:35 Imaging: Results reviewed. Assessment/Plan: The patient is a 71 y/o F with a known h/o ESRD on HD TTS, CHF with chronic volume overload and hypotension, nicotine addiction who presents as a transfer for transaminitis, worsening anemia with recent AVF repair on . Unclear etiology of elevated LFTs and may have infection (cholangitis, cholecystitis) vs possible shock liver as patient often drops her BP's on dialysis. Last HD on at [facility] prior to discharge. In addition, patient most likely is volume overload which may make some of her anemia dilutional as well as not receiving her regular EPO injections due to her hospitalization, however, cannot r/o bleeding from her procedure. ESRD on HD TTS -dialysis today, will assess for possible PUF tomorrow -will use AVF and work around christiano of revision -contacted Dr. Feliciano YAO, [place] to discuss further imaging for bleeding, etc. Hypotension/vol -midodrine prior to HD -will UF as much as tolerates -transfused 1U PRBCs last night Hyponatremia -2/2 to volume overload -will improve with UF -fluid restriction Transaminitis with leukocytosis -blood cultures pending -liver US pending -abx per primary service -keep MAP>65 -monitor LFTs -possible surgery consult Anemia -Hb drop to 6.2, now 8.9 s/p transfusion -will dose EPO, should be iron replete -monitor CBC -possible imaging of fistula as above BMD -check daily labs, phos -continue binder, renal diet R hand infection -on abx -nicotine cessation discussed Thank you for this consult, we will continue to follow with you. If questions, please contact [phone].
[2017-04-03] MEDS ORDERED: EPOETIN ALFA 10,000 UNIT/ML VIAL SC SCH (12:00)
--- NOTE | 2017-04-03 12:50 | WOCRNPDOC ---
WOCRN Advanced Assessment Note - Skin Integrity Problem, Advanced Assess Right Second Finger Dressing Type: Open to Air Exudate Amount: None Yessenia Wound Tissue: Erythema, Swollen Yessenia Wound Swelling: Mild Wound Bed Color: Brown Wound Bed Constitution: Scab Wound Edges: Well Defined Site Measurement - Head-to-Toe Length X Width X Depth (cm): 1.9p2dccoh Skin Integrity Problem Comment: Patient with wound of unknown etiology. Presently, wound bed very dry with adhered scab. Will add dressing and wound gel to see if we can loosen scab. Wound care will round again next week.
[2017-04-03] MEDS ORDERED: AMPICILLIN/SULBACTAM 3 GM in STERILE WATER INJ 8 ML IV SCH (14:00)
[2017-04-03] MEDS: PIPERACILLIN/TAZO 2.25 GM/DEX 50 ML IV SCH (14:39)
[2017-04-03] MEDS ORDERED: VANCOMYCIN 1 GM in NS 250 ML IV ONE (15:00)
--- NOTE | 2017-04-03 19:00 | CPEKG ---
Heart Rate: 70 RR Interval: 857 P-R Interval: 196 QRSD Interval: 108 QT Interval: 420 QTC Interval: 454 P [place]: 26 QRS [place]: -70 T Wave [place]: 115 EKG Severity - ABNORMAL ECG - EKG Impression: SINUS RHYTHM EKG Impression: LAD, CONSIDER LEFT ANTERIOR FASCICULAR BLOCK EKG Impression: ABNORMAL T, CONSIDER ISCHEMIA, LATERAL LEADS Electronically Signed By: Ernesto Lindsey 04-Apr-2017 07:50:05
[2017-04-03] MEDS: PREGABALIN 50 MG CAP PO SCH (21:37)
[2017-04-03] MEDS: PSYLLIUM METAMUCIL 1 PKT PO SCH (21:38)
--- NOTE | 2017-04-03 21:40 | GCON ---
[f rep st] CONSULTATION INFECTIOUS DISEASES CONSULTATION DATE OF CONSULTATION: 04/03/2017 REFERRING PHYSICIAN: Maurizio Fajardo MD REASON FOR CONSULTATION: Hypotension and leukocytosis. HISTORY OF PRESENT ILLNESS: The patient is a 71-year-old female with a past medical history of end-s tage renal disease, who I am asked to see in consultation for leukocytosis and hypotension, with conc raphael for infectious etiology. The patient was recently hospitalized at [facility] for t reatment of a right index finger cellulitis/ischemic ulceration associated with dialysis-associated s teal syndrome, for which she received treatment with intermittent vancomycin while on dialysis. Bloo d cultures at the time of that hospital stay showed no growth. The patient ultimately underwent a di stal revascularization and interval ligation (DRIL) procedure for her dialysis-associated steal syndr ome. The patient was due to continue on IV vancomycin through dialysis on 03/31/2017. Yesterday, sofia diamond was noted to complain of malaise and feeling unwell at dialysis, prompting transfer to [facility] Emergency Department. She did not have access and therefore was transferred to [facility]. She currently is somnolent postdialysis and does not provide any significant history. She w as noting at the time of her admission pain in her right finger, although decreased versus prior. Sh e did not note fever, chills, abdominal pain, nausea, vomiting, diarrhea, or cough. Evaluation at [facility] revealed a white blood cell count of 13.8 with significant increase in AST and ALT. Venous lactate did not show significant elevation. The patient was started empirically on van comycin and Zosyn, given concern about sepsis as an etiology for her leukocytosis, as well as concomi tant hypotension (blood pressure overnight of 77/48). Blood cultures have been obtained and so far s how no growth. A respiratory pathogen panel by PCR was negative. The patient had a chest x-ray perf ormed at time of PICC line placement, which does not show focal pneumonia. Abdominal ultrasound was performed due to elevated liver function tests with concerns raised for acute cholecystitis with a th ickened gallbladder wall with concomitant sludge and gallstones. Given the above findings, I am now asked to assist in her ongoing management. PAST MEDICAL HISTORY: Right finger cellulitis/ischemic digit, as outlined above, end-stage renal dis ease, type 2 diabetes, history of stroke, hypertension. PAST SURGICAL HISTORY: AV fistula, DRIL procedure during last hospitalization with utilization of le ft saphenous vein, renal carcinoma status post nephrectomy, left [id number] amputation. CURRENT MEDICATIONS: Vancomycin dosed according to levels, Unasyn 3 g IV q.24 hours, aspirin 81 mg p .o. daily, Lipitor 80 mg p.o. daily, TUMS 1500 mg p.o. t.i.d., Plavix 75 mg p.o. daily, Procrit 2000 units subcu weekly, heparin 5000 units subcu q.8 hours, Lantus insulin 5 units subcu q.h.s. and 3 uni ts subcu daily, Xopenex nebs as needed, Synthroid 125 mcg p.o. daily, midodrine 10 mg 3 times per wee k, Spiriva inhaler 18 mcg daily. ALLERGIES: Sulfonamides; unable to clarify reaction. Adhesive, hydrocodone, hydrocortisone. SOCIAL HISTORY: Patient smokes tobacco. No alcohol or drug use listed. Resident of [place]. FAMILY HISTORY: Type 2 diabetes. REVIEW OF SYSTEMS: Currently, a 10-system review cannot be completed. PHYSICAL EXAMINATION: VITAL SIGNS: Temperature 36.9, heart rate 70, respiratory rate 16, blood pres sure 105/48, oxygen saturation 96% on room air. GENERAL: Patient is chronically ill appearing, in n o acute distress. She appears nontoxic. She is somnolent, but arousable. HEENT: There is no scler al icterus, conjunctival injection, or conjunctival petechiae. Oropharynx shows dry mucous membranes . No nasal discharge. No tenderness over the frontal, maxillary or mastoid area. NECK: Supple wit hout palpable lymphadenopathy or thyromegaly. CHEST: Clear to auscultation bilaterally without adve ntitious sounds. The respiratory effort is normal. CARDIOVASCULAR: Regular rate and rhythm without murmurs, gallops, rubs. ABDOMEN: Soft, nontender, nondistended. There is no right upper quadrant tenderness. Bowel sounds are present. No palpable organomegaly. MUSCULOSKELETAL: There is a left [id number] amputation which is well healed; there are christiano in the left medial thigh without er ythema or drainage; there are christiano in the right upper extremity without erythema or drainage. The right index finger shows edema without overt erythema with mild tenderness throughout to palpation a nd range of motion. SKIN: See musculoskeletal; multiple ecchymoses along abdominal wall from previo us heparin injection. No stigmata of endocarditis. NEUROLOGIC: Patient is somnolent, but arousable . The remainder of a neurologic exam cannot be completed. LYMPHATICS: No cervical or supraclavicul ar nodes palpable. LABORATORY DATA: White blood cell count 14.2, hematocrit 27.6, platelets 155, neutrophils 72%. Seru m creatinine 3.8. AST 1134, ALT 666, alkaline phosphatase 162, bilirubin 1.3, ferritin greater than 10,000, procalcitonin 1.32, albumin 3.0, venous lactate 1.3, respiratory pathogen panel by PCR negati ve. Blood cultures x2 sets pending. Imaging as outlined above. IMPRESSION: 1. Hypotension and leukocytosis: Unclear etiology, although infectious etiologies are of significan t concern. Symptoms of fever may be less reliable in chronically ill patients. Given recent surgica l procedure and ongoing dialysis, bloodstream infection such as that due to Staphylococcus aureus is of consideration. Her right index finger remains tender, but does not show overt findings of infecti on and suspect some of her ongoing pain may be related to hyperemia post-revascularization. Ultrasou nd of the abdomen does show a distended and thickened gallbladder, although no abdominal pain present and liver enzymes somewhat disproportionate for cholecystitis. She is being followed by Surgery for this consideration. We will need empiric antibiotics pending further culture data and clinical cour se. 2. Increased liver enzymes: Suspect these may be related to acute hypotension. 3. Possible cholecystitis. RECOMMENDATIONS: 1. Agree with empiric vancomycin dosed by levels. 2. Agree with empiric Zosyn. 3. Follow up blood cultures as available. 4. Follow liver enzymes and clinical exam over time. Thank you for this consultation. We will continue to follow the patient with you. /[id number]/MODL
--- NOTE | 2017-04-04 00:21 | GCON ---
[f rep st] CONSULTATION A PULMONARY CRITICAL CARE CONSULTATION REASON FOR CONSULTATION: Intensive care unit evaluation and management of hypertension associated with anemia and elevated liver function tests in a patient with underlying chronic renal failure requiring chronic hemodialysis. HISTORY: The patient is a 71-year-old woman with chronic renal failure on hemodialysis. This is secondary to diabetes mellitus. She is a longstanding diabetic, has had renal failure and required dialysis for a number of years, has known severe atherosclerotic disease with a left lower extremity BKA in the past, CVA, etc. She is a chronic smoker and has underlying COPD and associated hypoxemia. She was recently hospitalized at [facility] for a shunt revision. She was also found to have a finger infection and ulceration on the right that was positive for MRSA. She presented for dialysis yesterday as an outpatient and was feeling poorly. She was found to have increased anemia, elevated liver function studies, and hypotension. She was sent for evaluation at [facility] Emergency Department in [place] and was subsequently transferred here. She was admitted to the intensive care unit as a step-down patient. She underwent hemodialysis this morning. She is feeling better compared to admission. An abdominal ultrasound was done secondary to her liver function tests. This does show sludge and stones in the gallbladder without a dilated common bile duct. She has been seen by Dr. Wiggins. She has no abdominal tenderness, no fevers, and she will be followed for a possible cholecystitis. She has also been seen by Wound Care. They feel her wound looks good and is healing well related to her finger. PAST MEDICAL HISTORY: Remarkable for multiple medical problems related to her diabetes and chronic renal failure. In addition, she has COPD, congestive heart failure with diastolic dysfunction, CVA with residual aphasia, hypertension, hyperlipidemia, diffuse atherosclerotic disease, gastroesophageal reflux, and fibromyalgia. She has a history of renal cell carcinoma and is status post nephrectomy. She is status post a left BKA and recent right upper extremity revision for a steal syndrome done by Dr. Wiggins. SOCIAL HISTORY: The patient lives at [facility] on the 3rd floor. Continues to smoke. FAMILY HISTORY: Positive for diabetes. REVIEW OF SYSTEMS: Difficult to obtain. However, this appears to be negative except as outlined in the HPI regarding all 10 points. PHYSICAL EXAMINATION: GENERAL: Reveals an elderly woman who is completing hemodialysis. VITAL SIGNS: Blood pressure is approximately 110/50, heart rate 65 with sinus rhythm on the monitor. Respiratory rate is 16. On room air saturations are in the high 90s. She is afebrile. HEENT: Remarkable for dry mucous membranes. There is no lymphadenopathy or thyromegaly, no obvious jugular venous distention. Recent incisions with christiano are present in the right upper extremity upper arm. There is some oozing from the superior incision, but this is not purulent. CHEST: Clear anteriorly. Breath sounds are diminished bilaterally. Expiratory phase is prolonged. There are no rhonchi, no significant wheezes. A few nonspecific rales are present at the bases. HEART: Regular with a systolic murmur. P2 appears to be increased. ABDOMEN: Overweight, soft and nontender. Specifically, there is no right upper quadrant tenderness even with deep palpation. Bowel sounds are present, mildly reduced. EXTREMITIES: Remarkable for her BKA on the left. Her right lower extremity has some pedal edema. It is in a soft boot for protection. NEUROLOGIC: Grossly intact. She moves all extremities with adequate strength. She does appear to be globally weak. She is oriented with decent memory for recent events. DATABASE: Chest x-ray shows no infiltrates. No signs of congestive heart failure. A PICC line is in place. Cardiac silhouette is enlarged. Ultrasound is as noted above. LABORATORY DATA: White blood cell count is 14,000, hematocrit 27.6, platelets 155,000. INR is 1.98, PT 22, PTT 42. Sodium is 129, potassium 4.0, BUN 44, with a creatinine of 3.8, pre dialysis. Glucose is 148, calcium 8.7. AST is 1134, down from 1382 on admission. ALT is 666, also somewhat down. Albumin is 3.0. Hepatitis panel is pending. Respiratory panel is negative for organisms. Blood cultures are pending. ASSESSMENT: 1. Hypotension. Present on admission. Resolving. The exact etiology is unclear; however, may be related to recent fluid removal. She does not appear to be septic or have another acute problem to explain her hypotension. She is not requiring pressors. She did get vancomycin post admission, but this has been changed by Infectious Disease to Zosyn. She possibly could have cholecystitis based on the ultrasound of the right upper quadrant; however, examination is quite benign, and she is not febrile, etc. She is being followed by Surgery. 2. Chronic renal failure. Dialysis has been resumed. She tolerated this acceptably, without significant hypotension. No fluid was removed. 3. Anemia. The patient presented with a hemoglobin of 6.3 and a hematocrit of 19.7. She was given 1 unit of packed red blood cells. Hematocrit is now 27.6 with a hemoglobin of 8.8. 4. Recent methicillin-resistant Staphylococcus aureus infection of the right index finger. Per Infectious Disease. I could not find culture information from her finger from the recent hospitalization. She did have methicillin- resistant Staphylococcus aureus documented from her sputum 1 year ago. 5. History of multiple medical problems, including diabetes mellitus, severe atherosclerotic disease, coronary artery disease, chronic obstructive pulmonary disease associated with hypoxemia, hypertension, etc. Her routine medications will be continued. These include anti-platelet agents, bronchodilators, insulin , etc. 6. Deep vein thrombosis prophylaxis: On subcutaneous heparin. 7. Gastrointestinal prophylaxis: None indicated, eating. PLAN AND RECOMMENDATIONS: The patient will be kept in the intensive care unit. Blood pressures will be followed. Laboratory will be followed. Current antibiotics will be continued for now, with changes made by Infectious Disease. Her gallbladder will be followed by Surgery as well as ourselves. Inhaled therapy with Xopenex will be continued. Further plans and recommendations will be made based on her progress over the next 12-24 hours. /[id number]/MODL MTDD
[2017-04-04] MEDS: PIPERACILLIN/TAZO 2.25 GM/DEX 50 ML IV SCH ×2 (01:42→14:48)
[2017-04-04 04:18] LABS: HEPATITIS B SURFACE ANTIGEN NEGATIVE (NEGATIVE)
[2017-04-04 04:24] LABS: HEPATITIS A ANTIBODY IGM (BCH) NEGATIVE (NEGATIVE); HEPATITIS B CORE AB IGM NEGATIVE (NEGATIVE)
[2017-04-04 04:35] LABS: HEPATITIS B CORE AB TOTAL NEGATIVE (NEGATIVE); HEPATITIS C ANTIBODY TOTAL NEGATIVE (NEGATIVE)
[2017-04-04 04:57] LABS: PLATELET COUNT 126 10^3/uL (150-400)
[2017-04-04] MEDS: LEVOTHYROXINE 125 MCG TAB PO SCH (06:01)
[2017-04-04] MEDS: HEPARIN 5,000 UNIT/0.5 ML SYR SC SCH ×3 (06:56→21:17)
[2017-04-04] MEDS: TIOTROPIUM INHALER 18 MCG/DOSE 5 DOSE/MDI IH SCH (08:20)
[2017-04-04] MEDS: CALCIUM CARBONATE 500 MG CHEWABLE TAB PO SCH ×3 (10:01→21:21)
[2017-04-04] MEDS: PREGABALIN 50 MG CAP PO SCH ×3 (10:01→21:22)
[2017-04-04] MEDS: ATORVASTATIN CALCIUM 40 MG TAB PO SCH (10:02)
[2017-04-04] MEDS: PSYLLIUM METAMUCIL 1 PKT PO SCH ×2 (10:02→21:22)
[2017-04-04] MEDS: CLOPIDOGREL BISULFATE 75 MG TAB PO SCH (10:02)
[2017-04-04] MEDS: INSULIN GLARGINE 100 UNITS/ML UNIT SC SCH ×2 (10:03→21:22)
[2017-04-04] MEDS: ASPIRIN 81 MG CHEWABLE TAB PO SCH (10:03)
--- NOTE | 2017-04-04 12:02 | SOAPPROG ---
SOAP Progress Note Assessment/Plan: Assessment/Plan: 71 y/o female with a history of DMII and CRF. Admitted to ICU as a SDU pt yesterday with hypotension and anemia. Also found to have elevated LFTs and possible cholecystitis and cholelithiasis on abdominal US. She was recently admitted as an inpatient with Steal syndrome of her right first finger with ulceration. S/p right AVF DRIL procedure last hospitalization Pt will need to have gall bladder out. S: Doing better. No complaints of pain. Does not want to have surgery today, will plan for Tuesday. O: Psychiatric: A&Ox3 General: NAD Abdomen: soft, nontender, normoactive bowel sounds Cardiac: RRR Resp: CTAB Right arm AVF: thrill appreciated Blood pressure stable H&H down today 04/04/17 15:36 Objective: Vital Signs Temp Pulse Resp BP Pulse Ox 36.5 C 63 14 99/59 L 100 04/04/17 07:43 04/04/17 07:43 04/04/17 07:43 04/04/17 07:43 04/04/17 07:43 Microbiology 04/02/17 22:30 Respiratory Panel (PCR) - Final Nasal, Sinus - Swab No Organism Detected Laboratory Results 04/04/17 04:45 04/04/17 04:45 04/03/17 04/04/17 04/05/17 05:59 05:59 05:59 Intake Total 920 1538 Output Total 0 Balance 920 1538 PT 22.6 SEC (12.0-15.0) H 04/02/17 22:30 INR 1.98 (0.83-1.16) H 04/02/17 22:30 ICD10 Worksheet Patient Problems: Problems Problem Status Onset Anemia Active Dyslipidemia Active Hypothyroidism Active Acute hyponatremia Acute Altered mental status Acute Anemia Acute COPD exacerbation Acute Cellulitis of finger of right hand Acute Chronic Disease Mgmt/Transitional Care Acute Chronic renal failure Acute Clostridium difficile infection Acute Congestive heart failure Acute Diabetes mellitus type 2 Acute ESRD (end stage renal disease) on dialysis Acute Elevated troponin Acute Hypochloremia Acute Hypoxemia Acute MRSA (methicillin resistant Staphylococcus aureus) Acute 04/16/15 Pneumonia Acute Sepsis without acute organ dysfunction Acute Shortness of breath Acute Urinary tract infection Acute
--- NOTE | 2017-04-04 12:10 | SOAPPROG ---
SOAP Progress Note Assessment/Plan: Assessment: pt seen for hypotension and anemia with crf now with lfts elevated nonicteric, abd soft, nontender us shows stones with normal bile duct on dialysis currently/ inr 2, does not appear to be on coumadin/ Plan:may have cholecystitis but not febrile or very tender but often minimal signs in diabetics/ will follow 04/03/17 10:05 04/03/17 10:09 why is her INR 2/ will need correction if surgery anticipated 04/04/17 12:09 Abdomen soft/LFTs improving/afebrile/right upper quadrant pain resolved/ patient likely needs her gallbladder removed the when she is medically stable. Recommend dialysis in the a.m. and then lap choly tomorrow or Tuesday. Risks and options been discussed the patient and she is considering surgery although she is not totally convinced to have surgery yet Objective: Vital Signs Temp Pulse Resp BP Pulse Ox 36.4 C 62 15 106/52 L 100 04/04/17 12:00 04/04/17 12:00 04/04/17 12:00 04/04/17 12:00 04/04/17 12:00 Microbiology 04/02/17 22:30 Respiratory Panel (PCR) - Final Nasal, Sinus - Swab No Organism Detected Laboratory Results 04/04/17 04:45 04/04/17 04:45 04/03/17 04/04/17 04/05/17 05:59 05:59 05:59 Intake Total 920 1538 Output Total 0 Balance 920 1538 PT 22.6 SEC (12.0-15.0) H 04/02/17 22:30 INR 1.98 (0.83-1.16) H 04/02/17 22:30 ICD10 Worksheet Patient Problems: Problems Problem Status Onset Anemia Active Dyslipidemia Active Hypothyroidism Active Acute hyponatremia Acute Altered mental status Acute Anemia Acute COPD exacerbation Acute Cellulitis of finger of right hand Acute Chronic Disease Mgmt/Transitional Care Acute Chronic renal failure Acute Clostridium difficile infection Acute Congestive heart failure Acute Diabetes mellitus type 2 Acute ESRD (end stage renal disease) on dialysis Acute Elevated troponin Acute Hypochloremia Acute Hypoxemia Acute MRSA (methicillin resistant Staphylococcus aureus) Acute 04/16/15 Pneumonia Acute Sepsis without acute organ dysfunction Acute Shortness of breath Acute Urinary tract infection Acute
--- NOTE | 2017-04-04 14:40 | PCMIDPN ---
Assessment/Plan: Assessment/Plan: * Leukocytosis/hypotension: Hypotension has resolved. White blood cell count decreased. Blood cultures remain no growth to date. No defined etiology for above presentation. Right index finger significantly improved today. 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 Continue antibiotics through today. If cultures remain negative and no definite infection identified, plan to discontinue antibiotic therapy. Doubt presentation related to acute cholecystitis. Surgical note reviewed noting possible elective cholecystectomy. * Increased liver enzymes: Most likely related to hypotension. Improving as blood pressure improves. 04/04/17 14:37 Subjective: Patient sitting up in chair today. Significantly more alert. No abdominal pain. Notes finger pain markedly decreased. Objective: Vital Signs Temp Pulse Resp BP Pulse Ox 36.4 C 62 15 106/52 L 100 04/04/17 12:00 04/04/17 12:00 04/04/17 12:00 04/04/17 12:00 04/04/17 12:00 Microbiology 04/02/17 22:30 Respiratory Panel (PCR) - Final Nasal, Sinus - Swab No Organism Detected Laboratory Results 04/04/17 04:45 04/04/17 04:45 04/03/17 04/04/17 04/05/17 05:59 05:59 05:59 Intake Total 920 1538 Output Total 0 Balance 920 1538 Vancomycin # 2 Zosyn # 2 Blood cultures x2 no growth Laboratory Tests 04/04/17 04/04/17 04:45 04:45 Cortisol AM Sample 12.0 Random Vancomycin 21.2 - Physical Exam General Appearance: alert, no apparent distress EENT: No scleral icterus, No thrush, No conjunctival petechiae Respiratory: lungs clear, No respiratory distress Cardiac/Chest: regular rate, rhythm, systolic murmur ( 2/6 left upper sternal border) Extremities: inflammation ( right index finger with residual tenderness palpation but significant decrease in edema; incisions along left lower extremity and right upper extremity without erythema or drainage) Abdomen: non-tender, No distended Skin: No embolic lesions ICD10 Worksheet Patient Problems: Problems Problem Status Onset Anemia Active Dyslipidemia Active Hypothyroidism Active Acute hyponatremia Acute Altered mental status Acute Anemia Acute COPD exacerbation Acute Cellulitis of finger of right hand Acute Chronic Disease Mgmt/Transitional Care Acute Chronic renal failure Acute Clostridium difficile infection Acute Congestive heart failure Acute Diabetes mellitus type 2 Acute ESRD (end stage renal disease) on dialysis Acute Elevated troponin Acute Hypochloremia Acute Hypoxemia Acute MRSA (methicillin resistant Staphylococcus aureus) Acute 04/16/15 Pneumonia Acute Sepsis without acute organ dysfunction Acute Shortness of breath Acute Urinary tract infection Acute
--- NOTE | 2017-04-04 14:50 | SOAPPROG ---
SOAP Progress Note Assessment/Plan: Assessment: 1. ESRD. HD tomorrow on TTS schedule. If going to OR tomorrow please let us know so we can coordinate dialysis schedule. 2. Hypotension,severe with leukocytosis. BCxs neg. Perioperative, associated with anemia. Possibly infectious, (cholecystitis on u/s) but cxs neg. Surg evaluating, may need beny. Will order echo. Increase midodrine to 5mg TID. 3. Volume overload. Attempt 2 L UF tomorrow. 4. Hepatitis. Suspect ischemic. Improving. 5. R hand ischemia. s/p DRIL 03/28/17. Hand appears much improved. Per wound care, finger wound healing. Plan: 04/04/17 14:48 04/04/17 14:50 04/04/17 14:51 04/04/17 14:56 04/04/17 14:57 Subjective: Had HD yesterday, 1 L removed. BPs have been as low as 70s (80s on dialysis). No complaints today. Objective: Vital Signs Temp Pulse Resp BP Pulse Ox 36.4 C 62 15 106/52 L 100 04/04/17 12:00 04/04/17 12:00 04/04/17 12:00 04/04/17 12:00 04/04/17 12:00 Microbiology 04/02/17 22:30 Respiratory Panel (PCR) - Final Nasal, Sinus - Swab No Organism Detected Laboratory Results 04/04/17 04:45 04/04/17 04:45 04/03/17 04/04/17 04/05/17 05:59 05:59 05:59 Intake Total 920 1538 Output Total 0 Balance 920 1538 PT 22.6 SEC (12.0-15.0) H 04/02/17 22:30 INR 1.98 (0.83-1.16) H 04/02/17 22:30 Lethargic but arousable, in chair RRR, no m/g/r Decreased br sounds in L base Abdom soft, nt 2+ sacral pitting edema L BKA R hand now pink (was purple blue 2 wks ago), warm R upper arm AVF with staple in, good bruit ICD10 Worksheet Patient Problems: Problems Problem Status Onset Hypothyroidism Active Diabetes mellitus type 2 Acute Anemia Active Dyslipidemia Active Clostridium difficile infection Acute Pneumonia Acute COPD exacerbation Acute ESRD (end stage renal disease) on dialysis Acute Chronic Disease Mgmt/Transitional Care Acute MRSA (methicillin resistant Staphylococcus aureus) Acute 04/16/15 Shortness of breath Acute Congestive heart failure Acute Hypoxemia Acute Acute hyponatremia Acute Hypochloremia Acute Sepsis without acute organ dysfunction Acute Altered mental status Acute Chronic renal failure Acute Urinary tract infection Acute Elevated troponin Acute Anemia Acute Cellulitis of finger of right hand Acute
[2017-04-04] MEDS ORDERED: MIDODRINE HCL 5 MG TAB PO PRN (14:56)
--- NOTE | 2017-04-04 15:08 | GCON ---
[f rep st] CONSULTATION DATE OF CONSULTATION: 04/04/2017 HISTORY OF PRESENT ILLNESS: The patient is a 71-year-old female, who is admitted at this time for pa in in her right index finger. She has an AV fistula in that hand, which has been present for over 2 years, but now she is having pain in the index finger and some pain when she is on dialysis, although she complains of no pain at the present time. She does have diabetes and chronic renal failure, as well as some history of heart failure, being followed by [facility]. 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 PAST MEDICAL HISTORY: Includes a CVA for 2 events. She has had long-standing end-stage renal diseas e on dialysis, diabetes, history of congestive heart failure, hypertension, peripheral vascular disea se, some COPD with a long smoking history. She also has chronic anemia. She has also had a left BK amputation secondary to peripheral vascular disease. ALLERGIES: Hydrocodone, hydrocortisone, and adhesive tape. PRESENT MEDICATIONS: Tylenol, Nitrostat, Oxy IR, MiraLAX, Lasix, midodrine, aspirin, Spiriva, Tums, Lipitor, Plavix, Lantus, DuoNeb, Enulose, milk of magnesium, Lopressor, Mycostatin, Lyrica and Levaqu in. REVIEW OF SYSTEMS: Negative on a 10-point review of systems other than related to the past history a nd HPI. She does smoke daily. She denies any current cardiac symptoms. PHYSICAL EXAMINATION: GENERAL: An alert, comfortable, 71-year-old female, who is in no acute distre ss. VITAL SIGNS: She has a low-grade temperature. HEENT: Reveals no bruits. No adenopathy. No i cterus. Pupils are equal and reactive. EOMs are intact. CARDIAC: Exam reveals a regular rhythm wi thout murmurs. CHEST: Clear. ABDOMEN: Soft and nontender with positive bowel sounds. EXTREMITIES : Reveal full pulses except in her left leg which has had a left BK amputation. NEUROLOGIC: Exam w as physiologic. PSYCHIATRIC: Exam reveals her to be alert, cooperative, and oriented. SKIN: Exam reveals no lesions or rashes. IMPRESSION: Findings consistent with a developing steal syndrome secondary to right arm arteriovenou s fistula. RECOMMENDATIONS: Would be a drill procedure or distal revascularization with interval ligation of he r brachial artery below the AV fistula. She fully understands the risks of surgery and requests that we proceed. /[id number]/MODL
[2017-04-04] MEDS ORDERED: ALBUMIN 25% 50 ML IV PRN (15:30)
[2017-04-04] MEDS: MIDODRINE HCL 5 MG TAB PO SCH (16:22)
[2017-04-04] MEDS ORDERED: PREGABALIN 50 MG CAP PO ONE (16:45)
--- NOTE | 2017-04-04 17:41 | ECHO ---
[email or web address] [address] [address] Main: [phone] Fax: [email or web address] Echocardiogram Name: PADILLA SPRAGUE MR#: [id number] Study Date: 04/04/2017 Study Time: 04:36 PM Date of : 1945 Age: 71 year(s) Height: 152.4 cm (60 in.) Weight: 68.49 kg (151 lb.) BSA: 1.66 m2 Gender: Female Examination: Limited Echo Indication: Hypotension/assess LV function/pericardium/RVSP Image Quality: Contrast: Requested by: Ray Dominguez BP: 109 mmHg/51 mmHg Heart Rate: Rhythm: Indication: Hypotension/assess LV function/pericardium/RVSP Procedure Staff Porter Baggage: Kayy Garrett [facility] Reading Physician: Navid Ocampo Requesting Provider: Conclusions: Normal size left ventricle. Mild to moderate LVH. The ejection fraction is estimated to be 65-70 %. No regional wall motion abnormality. There is abnormal septal motion with diastolic flattening suggestive of RV volume/pressure overload. . Moderate mitral valve stenosis is present. Moderate mitral valve regurgitation is present. Mild aortic cusp calcification is noted. Moderate tricuspid regurgitation is present. The pulmonary artery pressure is moderately to severely increased. No pericardial effusion. No significant change compared to 12/15/2016. Measurements: Chambers Valvular Assessment AV/MV Valvular Assessment TV/PV Normal Normal Normal Name Value Range Name Value Range Name Value Range EF Range: 65-70 % MV maxP mmHg ( - ) TR Vmax: 3.99 mm/s ( - ) MV meanP mmHg ( - ) TR PGmax: 64 mmHg ( - ) syst. PAP: 74 mmHg ( - ) Continued Measurements: Valvular Assessment AV/MV Valvular Assessment TV/PV Name Value Name Value MV VTI: 57.40 cm CVP (est.): 10 mmHg Patient: PADILLA SPRAGUE Study Date: 04/04/2017 Page 1 of 2 04:36 PM Findings: Left Ventricle: Normal size left ventricle. Mild to moderate LVH. Normal global systolic LV function. The ejection fraction is estimated to be 65-70 %. No regional wall motion abnormality. Right Ventricle: There is abnormal septal motion with diastolic flattening suggestive of RV volume/pressure overload. . Mitral Valve: Moderate mitral valve stenosis is present. Moderate mitral valve regurgitation is present. MV mean PG is 6mmHG.. Aortic Valve: Mild aortic cusp calcification is noted. Tricuspid Valve: Moderate tricuspid regurgitation is present. The pulmonary artery pressure is moderately to severely increased. RVSP is 74mmHG.. Pericardium: No pericardial effusion. (No Signature Object) Patient: PADILLA SPRAGUE Study Date: 04/04/2017 Page 2 of 2 04:36 PM [id number]
--- NOTE | 2017-04-04 18:59 | HOSPPROG ---
Hospitalist Progress Note Assessment/Plan: DIAGNOSES: -acute hypotension, ? etiology -differential diagnosis includes infection, low volume status from dialysis, something related to her anemia -severe acute on chronic anemia, unknown cause, with no noted bleeding; chronic anemia of renal disease -? relation of this to low BPs -elevated hepatic transaminases and new coagulopathy, sonographic evidence of cholecystitis, but no pain or nausea or fever: Normal bilirubin but her INR is up at 2 -? etiology of these findings or relation to low BPs -differential diagnosis includes ischemic injury from hypotension, gallstone disease and cholecystitis, viral illness, or other; the coagulopathy would be more consistent with a hypotensive injury then with gallstone disease -elevated cardiac troponin at 0.5, uncertain etiologies but suspect that this is due to her hypotension and her renal disease, doubt a acute coronary syndrome ; no EKG has been done at this time but there is no angina, heart failure, or new arrhythmia so far -ongoing left index finger cellulitis with healing wound there, has been receiving vancomycin 3 times weekly after dialysis, antibiotic still indicated; I reviewed cultures done during recent hospitalization and there was no growth from any cultures so that organism for this infection is unknown -recent revision of dialysis access last week -ESRD on chronic hemodialysis -DM2 -adequate control of sugars at this time -hx of CHF, appears stable and compensated -hx of copd, appears stable and compensated -history of peripheral artery disease -history of hypertension currently with low blood pressures I reviewed the patient's case in detail today with Dr. Alan Carrero and Malcolm Macario, also seen today on multidisciplinary rounds PLANS: -continue hemodialysis on schedule -repeat labs to follow electrolytes and acid-base -continue close follow-up of blood pressure and other vitals -at this time would not do any more transfusion but will follow her blood counts and blood pressures closely and consider the need for that -continue antibiotic coverage for her possible cholecystitis, and continue her current vancomycin for her finger, -Repeat troponin to be sure that it is not trending upward; follow liver enzymes and coagulation studies closely along with bilirubin -Dr. Wiggins will assess the patient for the abnormalities of liver enzymes in the ultrasound abnormalities; she may possibly need a cholecystitis, she may need other imaging studies to look for a stone or other cause of this syndrome SUBJECTIVE: Patient states she feels very well today and does not complain of any specific symptoms Notably she has been extremely lethargic today more so than yesterday per nurses and not really participating in much conversation or care OBJECTIVE Vitals reviewed: Blood pressure is better today though systolic still as low as 90 at times, vital signs otherwise stable without fever radiation monitor, my review: Sinus Exam: Quite somnolent and lethargic today, hard to arouse and falls back to sleep very quickly, answers questions appropriately skin warm dry color ok; cellulitis of hand and finger looked much better today resps not labored lungs clear BSs heart regular abd soft nondistended nontender, bowel sounds present limbs warm, no edema iv site ok Laboratory data: Liver enzymes are notably improved other stable Echocardiogram done today shows ejection fraction normal at 65%, no wall motion abnormalities, moderate mitral stenosis and regurgitation, evidence of elevated right-sided filling pressures Objective: Vital Signs Temp Pulse Resp BP Pulse Ox 36.6 C 74 16 109/51 L 100 04/04/17 16:00 04/04/17 16:00 04/04/17 16:00 04/04/17 16:00 04/04/17 12:00 Laboratory Results 04/04/17 04:45 04/04/17 04:45 04/03/17 04/04/17 04/05/17 06:59 06:59 06:59 Intake Total 920 1538 900 Output Total 0 Balance 920 1538 900 PT 22.6 SEC (12.0-15.0) H 04/02/17 22:30 INR 1.98 (0.83-1.16) H 04/02/17 22:30 - Time Spent With Patient Time Spent with Patient: greater than 35 minutes Time Spent with Patient: Greater than 35 minutes spent on this patients care, greater than 50% of time spent counseling, educating, and coordinating care regarding the above mentioned plan. ICD10 Worksheet Patient Problems: Problems Problem Status Onset Anemia Active Dyslipidemia Active Hypothyroidism Active Acute hyponatremia Acute Altered mental status Acute Anemia Acute COPD exacerbation Acute Cellulitis of finger of right hand Acute Chronic Disease Mgmt/Transitional Care Acute Chronic renal failure Acute Clostridium difficile infection Acute Congestive heart failure Acute Diabetes mellitus type 2 Acute ESRD (end stage renal disease) on dialysis Acute Elevated troponin Acute Hypochloremia Acute Hypoxemia Acute MRSA (methicillin resistant Staphylococcus aureus) Acute 04/16/15 Pneumonia Acute Sepsis without acute organ dysfunction Acute Shortness of breath Acute Urinary tract infection Acute
[2017-04-05] MEDS: PIPERACILLIN/TAZO 2.25 GM/DEX 50 ML IV SCH ×2 (01:50→14:29)
[2017-04-05 05:10] LABS: PLATELET COUNT 106 10^3/uL (150-400)
[2017-04-05] MEDS: LEVOTHYROXINE 125 MCG TAB PO SCH (05:42)
[2017-04-05] MEDS: HEPARIN 5,000 UNIT/0.5 ML SYR SC SCH ×3 (05:42→22:29)
--- NOTE | 2017-04-05 08:24 | SOAPPROG ---
SOAP Progress Note Assessment/Plan: Assessment: ESRD malfunctioning AVF, s/p revision arm edema elevated liver enzymes, improving anemia Plan: HD today HD tomorrow volume removal continue therapies 04/05/17 08:20 Subjective: feeling overall better no cp sob nausea or vomiting spirits good hungry this AM arm still a little sore Objective: Vital Signs Temp Pulse Resp BP Pulse Ox 36.6 C 67 18 109/48 L 100 04/05/17 00:00 04/05/17 00:00 04/05/17 00:00 04/05/17 00:00 04/05/17 00:00 Laboratory Results 04/05/17 05:00 04/05/17 05:00 04/04/17 04/05/17 04/06/17 05:59 05:59 05:59 Intake Total 1538 1400 Balance 1538 1400 PT 22.6 SEC (12.0-15.0) H 04/02/17 22:30 INR 1.98 (0.83-1.16) H 04/02/17 22:30 Physical Exam - Physical Exam General Appearance: alert, obese Neck: non-tender Respiratory: rales, No rhonchi, No wheezing Cardiac/Chest: regular rate, rhythm, edema, systolic murmur Abdomen: normal bowel sounds, non-tender, soft Skin: other (oozing serous fluid from surgical arm wound) Extremities: swelling Neuro/Psych: alert, normal mood/affect, oriented x 3 ICD10 Worksheet Patient Problems: Problems Problem Status Onset Anemia Active Dyslipidemia Active Hypothyroidism Active Acute hyponatremia Acute Altered mental status Acute Anemia Acute COPD exacerbation Acute Cellulitis of finger of right hand Acute Chronic Disease Mgmt/Transitional Care Acute Chronic renal failure Acute Clostridium difficile infection Acute Congestive heart failure Acute Diabetes mellitus type 2 Acute ESRD (end stage renal disease) on dialysis Acute Elevated troponin Acute Hypochloremia Acute Hypoxemia Acute MRSA (methicillin resistant Staphylococcus aureus) Acute 04/16/15 Pneumonia Acute Sepsis without acute organ dysfunction Acute Shortness of breath Acute Urinary tract infection Acute
[2017-04-05] MEDS: TIOTROPIUM INHALER 18 MCG/DOSE 5 DOSE/MDI IH SCH (08:28)
[2017-04-05] MEDS ORDERED: MIDODRINE HCL 5 MG TAB PO SCH (09:00)
[2017-04-05] MEDS: MIDODRINE HCL 5 MG TAB PO SCH ×4 (09:14→17:40)
--- NOTE | 2017-04-05 09:25 | SOAPPROG ---
[facility] Progress Note Assessment/Plan: Assessment: pt seen for hypotension and anemia with crf now with lfts elevated nonicteric, abd soft, nontender us shows stones with normal bile duct on dialysis currently/ inr 2, does not appear to be on coumadin/ Plan:may have cholecystitis but not febrile or very tender but often minimal signs in diabetics/ will follow 04/03/17 10:05 04/03/17 10:09 why is her INR 2/ will need correction if surgery anticipated 04/04/17 12:09 Abdomen soft/LFTs improving/afebrile/right upper quadrant pain resolved/ patient likely needs her gallbladder removed the when she is medically stable. Recommend dialysis in the a.m. and then lap choly tomorrow or Tuesday. Risks and options been discussed the patient and she is considering surgery although she is not totally convinced to have surgery yet 04/05/17 09:24 LFTS IMPROVING/ ABD SOFT BUT STILL SOME DISCOMFORT AND ANOREXIA/ WILL NEED LAP CHOLY SOON IM FEELS SAFE Objective: Vital Signs Temp Pulse Resp BP Pulse Ox 36.4 C 61 16 139/65 H 96 04/05/17 08:00 04/05/17 08:29 04/05/17 08:29 04/05/17 08:00 04/05/17 08:29 Laboratory Results 04/05/17 05:00 04/05/17 05:00 04/04/17 04/05/17 04/06/17 05:59 05:59 05:59 Intake Total 1538 1400 Balance 1538 1400 PT 22.6 SEC (12.0-15.0) H 04/02/17 22:30 INR 1.98 (0.83-1.16) H 04/02/17 22:30 ICD10 Worksheet Patient Problems: Problems Problem Status Onset Anemia Active Dyslipidemia Active Hypothyroidism Active Acute hyponatremia Acute Altered mental status Acute Anemia Acute COPD exacerbation Acute Cellulitis of finger of right hand Acute Chronic Disease Mgmt/Transitional Care Acute Chronic renal failure Acute Clostridium difficile infection Acute Congestive heart failure Acute Diabetes mellitus type 2 Acute ESRD (end stage renal disease) on dialysis Acute Elevated troponin Acute Hypochloremia Acute Hypoxemia Acute MRSA (methicillin resistant Staphylococcus aureus) Acute 04/16/15 Pneumonia Acute Sepsis without acute organ dysfunction Acute Shortness of breath Acute Urinary tract infection Acute
[2017-04-05] MEDS: PREGABALIN 50 MG CAP PO SCH ×3 (10:47→22:29)
[2017-04-05] MEDS: ACETAMINOPHEN 325 MG TAB PO PRN (10:48)
[2017-04-05] MEDS: ASPIRIN 81 MG CHEWABLE TAB PO SCH (10:48)
[2017-04-05] MEDS: ATORVASTATIN CALCIUM 40 MG TAB PO SCH (10:48)
[2017-04-05] MEDS: CLOPIDOGREL BISULFATE 75 MG TAB PO SCH (10:48)
[2017-04-05] MEDS: CALCIUM CARBONATE 500 MG CHEWABLE TAB PO SCH ×3 (10:48→22:28)
[2017-04-05] MEDS: PSYLLIUM METAMUCIL 1 PKT PO SCH ×2 (10:49→22:29)
[2017-04-05] MEDS: INSULIN GLARGINE 100 UNITS/ML UNIT SC SCH ×2 (11:07→22:29)
--- NOTE | 2017-04-05 13:34 | ASMTCMCOM ---
CM Note CM Note Notes: CM spoke w/ Leeanne RN regarding d/c POC. Pt is scheduled to have a lap beny at some point. Therapies have been ordered. Therapies are recommending SNF. Pt will most likely return back to [facility] when medically stable. Updates sent to [facility]. CM to follow. Plan: [facility] Date Signed: 04/05/2017 01:33 PM Electronically Signed By:MALORIE iSngh
[2017-04-05] MEDS: oxyCODONE IR 5 MG TAB PO PRN (14:27)
--- NOTE | 2017-04-05 14:58 | WOCRNPDOC ---
[facility] Advanced Assessment Note - Skin Integrity Problem, Advanced Assess Right Second Finger Dressing Type: Hydrocolloid Dressing Description: Intact Exudate Amount: Scant Exudate Color: Reddish/Yellow Exudate Characteristic(s): Serosanguinous Integumentary Issue Intervention: Dressing Changed, Hydrogel Applied Sondra Wound Tissue: Erythema, Swollen Sonrda Wound Swelling: Mild Wound Bed Color: Black, Yellow Wound Bed Constitution: Adhered Slough, Stable Eschar Site Odor: None Site Measurement - Head-to-Toe Length X Width X Depth (cm): 1.1cmx1.5cmx eschar Skin Integrity Problem Comment: Stable eschar w/ rim of adhered slough surrounding noted at distal aspect of R 2nd finger, just proximal to nail bed. Mild erythema and swelling sondra-wound and throughout this digit, but improved since previous hospitalization. Hydrocolloid applied by wound care on Tuesday to initiate autolysis of necrotic tissue; eschar beginning to lift, but wound is relatively dry. Applied Hydrogel over the eschar to help soften, then covered w/ new Hydrocolloid. Will re-assess on Saturday 04/08. Right Lateral Ankle Dressing Type: Allevyn Life Exudate Amount: Scant Exudate Color: Yellow Exudate Characteristic(s): Stringy Integumentary Issue Intervention: Visualized Under Dressing Sondra Wound Tissue: Blanching, Intact Sondra Wound Swelling: Mild Wound Bed Color: Yellow Wound Bed Constitution: Adhered Slough Site Odor: None Site Measurement - Head-to-Toe Length X Width X Depth (cm): 0.4cmx0.5cmx 0.1cm w / slough base Skin Integrity Problem Comment: Discrete, circular wound on patient's R lateral malleolus, which she reports is an injury she sustained when she "hit it" on some furniture. Stringy, well-adhered slough throughout wound bed. Sondra-wound skin is blanching, intact, w/ no erythema. Slough appears to be softening/ loosening; will continue w/ existing wound care orders.
--- NOTE | 2017-04-05 15:45 | PCMIDPN ---
Assessment/Plan: Assessment/Plan: 1. Leukocytosis with possible acute cholecysitis: - USG suspicious for cholecystitis. clinically minimal symptoms - LFT trending down-likely multifactorial - wbc improved. Creatinine 3.2 - Currently on zosyn renally dosed. Was on vanco. recent trough at 21. -recent blood cx ngtd -Continue with zosyn for now given above. - await surgery Subjective: afebrile. feels better overall. denies suraj abd pain at present. Denies nausea or decrease in appetite. Denies sob. Finger is better. Objective: Vital Signs Temp Pulse Resp BP Pulse Ox 36.8 C 76 20 101/54 L 91 L 04/05/17 15:06 04/05/17 15:06 04/05/17 15:06 04/05/17 15:06 04/05/17 15:06 Laboratory Results 04/05/17 05:00 04/05/17 05:00 04/04/17 04/05/17 04/06/17 05:59 05:59 05:59 Intake Total 1538 1400 Balance 1538 1400 - Physical Exam General Appearance: alert, no apparent distress Respiratory: lungs clear Cardiac/Chest: regular rate, rhythm Extremities: other (no LE swelling) Abdomen: normal bowel sounds, non-tender, soft, other (no guarding or rebound) Skin: other (no rash. ) ICD10 Worksheet Patient Problems: Problems Problem Status Onset Anemia Active Dyslipidemia Active Hypothyroidism Active Acute hyponatremia Acute Altered mental status Acute Anemia Acute COPD exacerbation Acute Cellulitis of finger of right hand Acute Chronic Disease Mgmt/Transitional Care Acute Chronic renal failure Acute Clostridium difficile infection Acute Congestive heart failure Acute Diabetes mellitus type 2 Acute ESRD (end stage renal disease) on dialysis Acute Elevated troponin Acute Hypochloremia Acute Hypoxemia Acute MRSA (methicillin resistant Staphylococcus aureus) Acute 04/16/15 Pneumonia Acute Sepsis without acute organ dysfunction Acute Shortness of breath Acute Urinary tract infection Acute
[2017-04-05] MEDS: traMADol 50 MG TAB PO PRN (17:40)
--- NOTE | 2017-04-05 19:31 | HOSPPROG ---
Hospitalist Progress Note Assessment/Plan: DIAGNOSES: -acute hypotension, ? etiology, probably multifactorial -resolved present -differential diagnosis includes infection, low volume status from dialysis -severe acute on chronic anemia, unknown cause, with no noted bleeding; chronic anemia of renal disease -? relation of this to low BPs; stable after 1 U red blood cell transfusion -elevated hepatic transaminases and new coagulopathy, sonographic evidence of cholecystitis, but no pain or nausea or fever: -suspect lab abnormalities all due to low BPs, but her cholecystitis may play a role as well -elevated cardiac troponin at 0.5 -this appears due to her hypotension and is likely a demand ischemia along with hypotension induced liver injury, no signs of cardiac instability and no angina -ongoing left index finger cellulitis with healing wound there, -see notes from Infectious Disease, improving here, receiving wound care -recent revision of dialysis access last week -ESRD on chronic hemodialysis -DM2 -adequate control of sugars at this time -hx of CHF, appears stable and compensated -hx of copd, appears stable and compensated -history of peripheral artery disease -history of hypertension currently with low blood pressures PLANS: -continue hemodialysis, has had extra sessions, plan for another session tomorrow -repeat labs to follow electrolytes and acid-base -continue close follow-up of blood pressure and other vitals -at this time would not do any more transfusion but will follow her blood counts and blood pressures closely and consider the need for that -continue antibiotic coverage for her possible cholecystitis -plan on cholecystectomy when she is stable from a renal, liver, infections standpoint; suspect this may be reasonable within 2 days if continues to improve SUBJECTIVE: Patient states she feels okay today Did complain of some left hand pain to me today with no injury OBJECTIVE Vitals reviewed: Now stable without fever Exam: Much more alert today, talkative and oriented skin warm dry color ok; cellulitis of R hand and finger looks notably better, wound on dorsal aspect of index finger still open but clean, dressed appropriately resps not labored lungs clear BSs heart regular abd soft nondistended nontender, bowel sounds present limbs warm, no edema iv site ok Laboratory data: Liver enzymes continue to improve Some decrease in platelets, labs otherwise stable Echocardiogram shows ejection fraction normal at 65%, no wall motion abnormalities, moderate mitral stenosis and regurgitation, evidence of elevated right-sided filling pressures Objective: Vital Signs Temp Pulse Resp BP Pulse Ox 36.8 C 76 20 101/54 L 91 L 04/05/17 15:06 04/05/17 15:06 04/05/17 15:06 04/05/17 15:06 04/05/17 15:06 Laboratory Results 04/05/17 05:00 04/05/17 05:00 04/04/17 04/05/17 04/06/17 06:59 06:59 06:59 Intake Total 1538 1400 500 Balance 1538 1400 500 PT 22.6 SEC (12.0-15.0) H 04/02/17 22:30 INR 1.98 (0.83-1.16) H 04/02/17 22:30 - Time Spent With Patient Time Spent with Patient: greater than 35 minutes Time Spent with Patient: Greater than 35 minutes spent on this patients care, greater than 50% of time spent counseling, educating, and coordinating care regarding the above mentioned plan. ICD10 Worksheet Patient Problems: Problems Problem Status Onset Anemia Active Dyslipidemia Active Hypothyroidism Active Acute hyponatremia Acute Altered mental status Acute Anemia Acute COPD exacerbation Acute Cellulitis of finger of right hand Acute Chronic Disease Mgmt/Transitional Care Acute Chronic renal failure Acute Clostridium difficile infection Acute Congestive heart failure Acute Diabetes mellitus type 2 Acute ESRD (end stage renal disease) on dialysis Acute Elevated troponin Acute Hypochloremia Acute Hypoxemia Acute MRSA (methicillin resistant Staphylococcus aureus) Acute 04/16/15 Pneumonia Acute Sepsis without acute organ dysfunction Acute Shortness of breath Acute Urinary tract infection Acute
[2017-04-06] MEDS: PIPERACILLIN/TAZO 2.25 GM/DEX 50 ML IV SCH (01:32)
[2017-04-06] MEDS: traMADol 50 MG TAB PO PRN ×2 (01:32→21:35)
[2017-04-06] MEDS: HEPARIN 5,000 UNIT/0.5 ML SYR SC SCH ×4 (04:48→23:00)
[2017-04-06] MEDS: LEVOTHYROXINE 125 MCG TAB PO SCH (05:56)
[2017-04-06] MEDS: MIDODRINE HCL 5 MG TAB PO SCH ×4 (07:41→15:05)
--- NOTE | 2017-04-06 08:22 | SOAPPROG ---
SOAP Progress Note Assessment/Plan: Assessment: 1. ESRD. HD normally is TTS schedule. Extra HD today for volume, plan regular day dialysis tomorrow. UF 3 L today, tomorrow. 2. Hypotension,severe with leukocytosis. BCxs neg. On empiric zosyn/vanco. Perioperative, associated with anemia. Possibly infectious, (cholecystitis on u/s) but cxs neg. Surg evaluating, but no sxs of cholecystitis. BP much better on midodrine 5mg TID. 3. Volume overload. Significant RV overload on echo. Attempt additional UF tomorrow. 4. Hepatitis. Suspect ischemic. Improving. 5. R hand ischemia. s/p DRIL 03/28/17. Hand appears much improved. Per wound care, finger wound healing. 6. PT/OT/nutrition supplements Plan: 04/04/17 14:48 04/04/17 14:50 04/04/17 14:51 04/04/17 14:56 04/04/17 14:57 04/06/17 08:20 04/06/17 08:22 Subjective: Pt seen and examined on dialysis. Feeling much better. Eating breakfast. Objective: Vital Signs Temp Pulse Resp BP Pulse Ox 36.4 C 68 16 110/94 H 91 L 04/06/17 03:33 04/06/17 03:33 04/06/17 03:33 04/06/17 03:33 04/06/17 03:33 Laboratory Results 04/05/17 05:00 04/05/17 05:00 04/05/17 04/06/17 04/07/17 05:59 05:59 05:59 Intake Total 1400 1050 Balance 1400 1050 PT 22.6 SEC (12.0-15.0) H 04/02/17 22:30 INR 1.98 (0.83-1.16) H 04/02/17 22:30 On dialysis 4 K bath, UF goal 2 L RRR, II/ sys murmur, no g/r R insp wheeze, o/w CTAB Abdom soft, no RUQ tenderness 2+ sacral pitting edema RUE avf with needles in R index finger bandaged, hand pink ICD10 Worksheet Patient Problems: Problems Problem Status Onset Hypothyroidism Active Diabetes mellitus type 2 Acute Anemia Active Dyslipidemia Active Clostridium difficile infection Acute Pneumonia Acute COPD exacerbation Acute ESRD (end stage renal disease) on dialysis Acute Chronic Disease Mgmt/Transitional Care Acute MRSA (methicillin resistant Staphylococcus aureus) Acute 04/16/15 Shortness of breath Acute Congestive heart failure Acute Hypoxemia Acute Acute hyponatremia Acute Hypochloremia Acute Sepsis without acute organ dysfunction Acute Altered mental status Acute Chronic renal failure Acute Urinary tract infection Acute Elevated troponin Acute Anemia Acute Cellulitis of finger of right hand Acute
[2017-04-06] MEDS: TIOTROPIUM INHALER 18 MCG/DOSE 5 DOSE/MDI IH SCH (09:18)
[2017-04-06] MEDS: INSULIN GLARGINE 100 UNITS/ML UNIT SC SCH ×2 (09:29→21:37)
--- NOTE | 2017-04-06 09:53 | PCMIDPN ---
Assessment/Plan: #Cholecystitis likely accounts for leukocytosis and abdominal pain at admit, now resolved: refusing surgery. LFTs improving, wbc normalized --dc zosyn, no PsA isolated, change to renal dose Levaquin/Flagyl to complete total 14 days of therapy, today #4 --try PO antibiotics for potential test for dc #ESRD: renal dose antibiotics #Remote h/o MRSA 04/08: contact precautions meds zosyn 2.25gm IV q12, #4 micro blood cx (2) NGTD Subjective: patient is refusing surgery, feels better Objective: Vital Signs Temp Pulse Resp BP Pulse Ox 36.4 C 65 16 110/94 H 93 04/06/17 03:33 04/06/17 09:22 04/06/17 03:33 04/06/17 03:33 04/06/17 09:22 Laboratory Results 04/05/17 05:00 04/05/17 05:00 04/05/17 04/06/17 04/07/17 05:59 05:59 05:59 Intake Total 1400 1050 Balance 1400 1050 Laboratory Tests 04/02/17 04/03/17 04/04/17 22:30 05:45 04:45 AST 1382 H 1134 H 541 H ALT 721 H 666 H 437 H 04/05/17 05:00 AST 255 H ALT 341 H - Physical Exam General Appearance: alert, no apparent distress Respiratory: lungs clear, No accessory muscle use, No crackles Cardiac/Chest: regular rate, rhythm Extremities: other (L BKA; R UE AV fistula with christiano still in place, mild swelling no erythema) Abdomen: non-tender, soft, No peritoneal signs Skin: pallor, No rash Neuro/Psych: alert, normal mood/affect, oriented x 3 - Line/s LUE PICC Lines: other (mild arm swelling), No drainage, No erythema - Time Spent With Patient Time Spent with Patient: greater than 35 minutes (Care coordinated and patient examined with Dr. Chase) Time Spent with Patient: Greater than 35 minutes spent on this patients care, greater than 50% of time spent counseling, educating, and coordinating care regarding the above mentioned plan. ICD10 Worksheet Patient Problems: Problems Problem Status Onset Anemia Active Dyslipidemia Active Hypothyroidism Active Acute hyponatremia Acute Altered mental status Acute Anemia Acute COPD exacerbation Acute Cellulitis of finger of right hand Acute Chronic Disease Mgmt/Transitional Care Acute Chronic renal failure Acute Clostridium difficile infection Acute Congestive heart failure Acute Diabetes mellitus type 2 Acute ESRD (end stage renal disease) on dialysis Acute Elevated troponin Acute Hypochloremia Acute Hypoxemia Acute MRSA (methicillin resistant Staphylococcus aureus) Acute 04/16/15 Pneumonia Acute Sepsis without acute organ dysfunction Acute Shortness of breath Acute Urinary tract infection Acute
--- NOTE | 2017-04-06 10:27 | SOAPPROG ---
SOAP Progress Note Assessment/Plan: Assessment/Plan: 71 Y F s/p DRIL procedure for steal syndrome at last admit, now admitted with hypotension, anemia, elevated LFTs. US with cholelithiasis and wall thickening, suggestive of cholecystitis. Recommend lap beny. Patient refusing surgery--is asymptomatic at this point. Zosyn likely helping. Appreciate that elevated LFTs could be multifactorial and include hypotension as a cause. Still, I personally reviewed US images with Dr. Wiggins and her gallbladder is full of stones and appears inflamed. I explained this could cause problems for her in the future. Will continue to follow as an outpatient, for both cholelithiasis and her DRIL surgery. AVF functioning well. Hand less painful and 2nd finger ulcer clean. Staple removal here if still in house tomorrow. Otherwise will do early next week in office. S: in HD in room. No abd pain. Hand feels better. No N/V. O: sleeping, but easily aroused and appropriate no wob RUE: +avf thrill, inc cdi, lightly palpable radial pulse LLE: inc cdi, no erythema, +ecchymosis. 04/06/17 10:21 Objective: Vital Signs Temp Pulse Resp BP Pulse Ox 36.4 C 65 16 110/94 H 93 04/06/17 03:33 04/06/17 09:22 04/06/17 03:33 04/06/17 03:33 04/06/17 09:22 Laboratory Results 04/05/17 05:00 04/05/17 05:00 04/05/17 04/06/17 04/07/17 05:59 05:59 05:59 Intake Total 1400 1050 Balance 1400 1050 PT 22.6 SEC (12.0-15.0) H 04/02/17 22:30 INR 1.98 (0.83-1.16) H 04/02/17 22:30 ICD10 Worksheet Patient Problems: Problems Problem Status Onset Anemia Active Dyslipidemia Active Hypothyroidism Active Acute hyponatremia Acute Altered mental status Acute Anemia Acute COPD exacerbation Acute Cellulitis of finger of right hand Acute Chronic Disease Mgmt/Transitional Care Acute Chronic renal failure Acute Clostridium difficile infection Acute Congestive heart failure Acute Diabetes mellitus type 2 Acute ESRD (end stage renal disease) on dialysis Acute Elevated troponin Acute Hypochloremia Acute Hypoxemia Acute MRSA (methicillin resistant Staphylococcus aureus) Acute 04/16/15 Pneumonia Acute Sepsis without acute organ dysfunction Acute Shortness of breath Acute Urinary tract infection Acute
[2017-04-06] MEDS: PREGABALIN 50 MG CAP PO SCH ×3 (10:44→21:36)
[2017-04-06] MEDS: ATORVASTATIN CALCIUM 40 MG TAB PO SCH (10:44)
[2017-04-06] MEDS: CALCIUM CARBONATE 500 MG CHEWABLE TAB PO SCH ×3 (10:44→21:38)
[2017-04-06] MEDS: ASPIRIN 81 MG CHEWABLE TAB PO SCH (10:44)
[2017-04-06] MEDS: PSYLLIUM METAMUCIL 1 PKT PO SCH ×2 (10:45→21:38)
[2017-04-06] MEDS: CLOPIDOGREL BISULFATE 75 MG TAB PO SCH (10:45)
[2017-04-06] MEDS: metroNIDAZOLE 500 MG TAB PO SCH ×2 (15:05→21:36)
--- NOTE | 2017-04-06 17:39 | HOSPPROG ---
Hospitalist Progress Note Assessment/Plan: # acute cholecystitis- US (personally reviewed and interpreted) consistent with cholecystitis Oxygen saturations 97% on room air - transition from IV Zosyn to oral antibiotics - complete a full course - patient refusing surgical intervention at this time # acute hypotension- suspect secondary to above- stabilized after admission - continue to monitor # ESRD- receiving hemodialysis currently # elevated liver function tests-suspect secondary to cholecystitis continue to trend- [id number] # prophylaxis with heparin # diet renal # disposition greater than 2 midnights as the patient presented with acute cholecystitis requiring IV antibiotics and care Discussed the case with Dr. Montoya-patient is stable and can be transitioned to p.o. Antibiotics today Objective: Vital Signs Temp Pulse Resp BP Pulse Ox 36.7 C 69 14 145/55 H 97 04/06/17 16:00 04/06/17 16:00 04/06/17 16:00 04/06/17 16:00 04/06/17 16:00 Laboratory Results 04/05/17 05:00 04/05/17 05:00 04/05/17 04/06/17 04/07/17 05:59 05:59 05:59 Intake Total 1400 1050 240 Balance 1400 1050 240 PT 22.6 SEC (12.0-15.0) H 04/02/17 22:30 INR 1.98 (0.83-1.16) H 04/02/17 22:30 - Physical Exam Constitutional: chronically ill appearing Eyes: anicteric sclera Ears, Nose, Mouth, Throat: moist mucous membranes Cardiovascular: regular rate and rhythym Respiratory: no respiratory distress Gastrointestinal: normoactive bowel sounds Genitourinary: no bladder fullness Skin: warm Musculoskeletal: No asymmetric calves Neurologic: AAOx3 Psychiatric: interacting appropriately Lymph, Heme, Immunologic: no cervical LAD ICD10 Worksheet Patient Problems: Problems Problem Status Onset Anemia Active Dyslipidemia Active Hypothyroidism Active Acute hyponatremia Acute Altered mental status Acute Anemia Acute COPD exacerbation Acute Cellulitis of finger of right hand Acute Chronic Disease Mgmt/Transitional Care Acute Chronic renal failure Acute Clostridium difficile infection Acute Congestive heart failure Acute Diabetes mellitus type 2 Acute ESRD (end stage renal disease) on dialysis Acute Elevated troponin Acute Hypochloremia Acute Hypoxemia Acute MRSA (methicillin resistant Staphylococcus aureus) Acute 04/16/15 Pneumonia Acute Sepsis without acute organ dysfunction Acute Shortness of breath Acute Urinary tract infection Acute
[2017-04-06] MEDS: oxyCODONE IR 5 MG TAB PO PRN (22:31)
[2017-04-07] MEDS: oxyCODONE IR 5 MG TAB PO PRN (02:35)
[2017-04-07] MEDS ORDERED: oxyCODONE IR 5 MG TAB PO ONE (02:53)
[2017-04-07 03:52] LABS: PLATELET COUNT 94 10^3/uL (150-400)
[2017-04-07] MEDS: metroNIDAZOLE 500 MG TAB PO SCH ×3 (05:09→20:46)
[2017-04-07] MEDS: LEVOTHYROXINE 125 MCG TAB PO SCH (05:09)
[2017-04-07] MEDS: traMADol 50 MG TAB PO PRN (06:26)
[2017-04-07] MEDS: HEPARIN 5,000 UNIT/0.5 ML SYR SC SCH ×3 (06:30→21:12)
[2017-04-07] MEDS: INSULIN GLARGINE 100 UNITS/ML UNIT SC SCH ×2 (08:43→20:47)
[2017-04-07] MEDS: CLOPIDOGREL BISULFATE 75 MG TAB PO SCH (08:45)
[2017-04-07] MEDS: CALCIUM CARBONATE 500 MG CHEWABLE TAB PO SCH ×3 (08:45→20:47)
[2017-04-07] MEDS: PREGABALIN 50 MG CAP PO SCH ×3 (08:46→20:47)
[2017-04-07] MEDS: ATORVASTATIN CALCIUM 40 MG TAB PO SCH (08:47)
[2017-04-07] MEDS: ASPIRIN 81 MG CHEWABLE TAB PO SCH (08:47)
[2017-04-07] MEDS: MIDODRINE HCL 5 MG TAB PO SCH ×3 (08:48→16:21)
--- NOTE | 2017-04-07 10:17 | SOAPPROG ---
SOAP Progress Note Assessment/Plan: Assessment: 1. ESRD. HD normally is TTS schedule. Extra HD yesterday done for volume, plan regular day dialysis today, next Sat. 2. Hypotension,severe with leukocytosis. BCxs neg. ABx changed to po levo/flagyl. Perioperative, associated with anemia. Possibly cholecystitis. Refuses GB surgery. BP yesterday was high on midodrine 5mg TID, now 110s. If high again today will d /c midodrine. 3. Volume overload. Significant RV overload on echo. Attempt additional UF today. 4. Hepatitis. Suspect ischemic vs GB. Improving. 5. R hand ischemia. s/p DRIL 03/28/17. Hand appears much improved. Per wound care, finger wound healing. 6. PT/OT/nutrition supplements Plan: 04/04/17 14:48 04/04/17 14:50 04/04/17 14:51 04/04/17 14:56 04/04/17 14:57 04/06/17 08:20 04/06/17 08:22 04/07/17 10:17 04/07/17 10:19 Subjective: Feels better. No abdominal pain. Wants to go home. Had HD with 3 L UF yesterday. Objective: Vital Signs Temp Pulse Resp BP Pulse Ox 36.6 C 65 19 115/61 95 04/07/17 08:00 04/07/17 08:00 04/07/17 08:00 04/07/17 08:00 04/07/17 08:00 Laboratory Results 04/07/17 03:30 04/07/17 03:30 04/06/17 04/07/17 04/08/17 05:59 05:59 05:59 Intake Total 1050 690 Balance 1050 690 PT 22.6 SEC (12.0-15.0) H 04/02/17 22:30 INR 1.98 (0.83-1.16) H 04/02/17 22:30 Comfortable, in bed, eating breakfast RRR, no m/g/r CTAB Abdom soft, mildly distended, no RUQ tenderness 2+ sacral pitting edema Feet in heel boots R hand pink, warm, 1st finger bandaged ICD10 Worksheet Patient Problems: Problems Problem Status Onset Hypothyroidism Active Diabetes mellitus type 2 Acute Anemia Active Dyslipidemia Active Clostridium difficile infection Acute Pneumonia Acute COPD exacerbation Acute ESRD (end stage renal disease) on dialysis Acute Chronic Disease Mgmt/Transitional Care Acute MRSA (methicillin resistant Staphylococcus aureus) Acute 04/16/15 Shortness of breath Acute Congestive heart failure Acute Hypoxemia Acute Acute hyponatremia Acute Hypochloremia Acute Sepsis without acute organ dysfunction Acute Altered mental status Acute Chronic renal failure Acute Urinary tract infection Acute Elevated troponin Acute Anemia Acute Cellulitis of finger of right hand Acute
[2017-04-07] MEDS: PSYLLIUM METAMUCIL 1 PKT PO SCH ×2 (10:33→21:11)
[2017-04-07] MEDS: TIOTROPIUM INHALER 18 MCG/DOSE 5 DOSE/MDI IH SCH (10:52)
--- NOTE | 2017-04-07 11:46 | PCMIDPN ---
Assessment/Plan: Assessment: Cholecystitis. Patient refuses surgical intervention. She will be treated to complete 14 days on oral Levaquin and Flagyl. Went over the risks of refusing surgery with the patient including serious recurrence of this problem. The patient voiced her complete understanding however she still does not wish to consent to the surgery. Plan: 1. Continue Levaquin and Flagyl for total of 14 days. 2. Follow clinical course. 3. Follow up p.r.n.. 04/07/17 19:06 Subjective: Patient is resting in her hospital bed. She voices no new complaint. States she feels slightly better. Appetite is beginning to come back. Objective: Levaquin # 1 Flagyl # 1 Vital Signs Temp Pulse Resp BP Pulse Ox 36.6 C 65 19 115/61 95 04/07/17 08:00 04/07/17 08:00 04/07/17 08:00 04/07/17 08:00 04/07/17 08:00 Laboratory Results 04/07/17 03:30 04/07/17 03:30 04/06/17 04/07/17 04/08/17 05:59 05:59 05:59 Intake Total 1050 690 Balance 1050 690 - Physical Exam General Appearance: WD/WN, alert, no apparent distress, non-toxic Respiratory: lungs clear, normal breath sounds, No respiratory distress Cardiac/Chest: regular rate, rhythm, No tachycardia Skin: normal color, warm/dry, No rash Neuro/Psych: alert, normal mood/affect, oriented x 3 ICD10 Worksheet Patient Problems: Problems Problem Status Onset Anemia Active Dyslipidemia Active Hypothyroidism Active Acute hyponatremia Acute Altered mental status Acute Anemia Acute COPD exacerbation Acute Cellulitis of finger of right hand Acute Chronic Disease Mgmt/Transitional Care Acute Chronic renal failure Acute Clostridium difficile infection Acute Congestive heart failure Acute Diabetes mellitus type 2 Acute ESRD (end stage renal disease) on dialysis Acute Elevated troponin Acute Hypochloremia Acute Hypoxemia Acute MRSA (methicillin resistant Staphylococcus aureus) Acute 04/16/15 Pneumonia Acute Sepsis without acute organ dysfunction Acute Shortness of breath Acute Urinary tract infection Acute
--- NOTE | 2017-04-07 17:07 | HOSPPROG ---
Hospitalist Progress Note Assessment/Plan: # acute cholecystitis- US (personally reviewed and interpreted) consistent with cholecystitis Oxygen saturations 97% on room air - tolerating oral antibiotics- complete a full course - patient refusing surgical intervention at this time - abdominal pain resolved # acute hypotension- suspect secondary to above- stabilized after admission - continue to monitor # ESRD- receiving hemodialysis currently # elevated liver function tests-suspect secondary to cholecystitis continue to trend- AST 1300-> 225 # prophylaxis with heparin # diet renal # disposition greater than 2 midnights as the patient presented with acute cholecystitis requiring IV antibiotics and care Discussed the case with RT- pulmonary quite stable- work on weaning daytime O2 Subjective: denies abdominal pain Objective: Vital Signs Temp Pulse Resp BP Pulse Ox 36.5 C 82 20 100/52 L 94 04/07/17 16:00 04/07/17 16:00 04/07/17 16:00 04/07/17 16:00 04/07/17 16:00 Laboratory Results 04/07/17 03:30 04/07/17 03:30 04/06/17 04/07/17 04/08/17 05:59 05:59 05:59 Intake Total 1050 690 Balance 1050 690 PT 22.6 SEC (12.0-15.0) H 04/02/17 22:30 INR 1.98 (0.83-1.16) H 04/02/17 22:30 - Physical Exam Constitutional: no apparent distress Eyes: anicteric sclera Ears, Nose, Mouth, Throat: moist mucous membranes Cardiovascular: regular rate and rhythym, systolic murmur Respiratory: no respiratory distress Gastrointestinal: normoactive bowel sounds Genitourinary: no bladder fullness Skin: warm Musculoskeletal: No asymmetric calves Neurologic: AAOx3 Psychiatric: interacting appropriately Lymph, Heme, Immunologic: no cervical LAD ICD10 Worksheet Patient Problems: Problems Problem Status Onset Anemia Active Dyslipidemia Active Hypothyroidism Active Acute hyponatremia Acute Altered mental status Acute Anemia Acute COPD exacerbation Acute Cellulitis of finger of right hand Acute Chronic Disease Mgmt/Transitional Care Acute Chronic renal failure Acute Clostridium difficile infection Acute Congestive heart failure Acute Diabetes mellitus type 2 Acute ESRD (end stage renal disease) on dialysis Acute Elevated troponin Acute Hypochloremia Acute Hypoxemia Acute MRSA (methicillin resistant Staphylococcus aureus) Acute 04/16/15 Pneumonia Acute Sepsis without acute organ dysfunction Acute Shortness of breath Acute Urinary tract infection Acute
--- NOTE | 2017-04-07 17:17 | SOAPPROG ---
SOAP Progress Note Assessment/Plan: Assessment/Plan: 71 y/o female with a history of DMII and CRF. Admitted to ICU as a SDU pt yesterday with hypotension and anemia. Also found to have elevated LFTs and possible cholecystitis and cholelithiasis on abdominal US. She was recently admitted as an inpatient with Steal syndrome of her right first finger with ulceration. S/p right AVF DRIL procedure last hospitalization Recommend lap beny, although pt is still refusing surgery. Discussed with pt the necessity of having her gall bladder out to avoid issues in the future. Pt still asymptomatic and does not want to have surgery at this time. Will continue to follow as an outpatient. S: No complaints of pain in right hand/right first finger. No n/v or abdominal pain. O: Psychiatric: sleepy, but arousable General: NAD Abdomen: soft, nontender, normoactive bowel sounds Right arm AVF: thrill appreciated, incision cdi Blood pressure stable H&H down today 04/07/17 17:11 Objective: Vital Signs Temp Pulse Resp BP Pulse Ox 36.5 C 82 20 100/52 L 94 04/07/17 16:00 04/07/17 16:00 04/07/17 16:00 04/07/17 16:00 04/07/17 16:00 Laboratory Results 04/07/17 03:30 04/07/17 03:30 04/06/17 04/07/17 04/08/17 05:59 05:59 05:59 Intake Total 1050 690 Balance 1050 690 PT 22.6 SEC (12.0-15.0) H 04/02/17 22:30 INR 1.98 (0.83-1.16) H 04/02/17 22:30 ICD10 Worksheet Patient Problems: Problems Problem Status Onset Anemia Active Dyslipidemia Active Hypothyroidism Active Acute hyponatremia Acute Altered mental status Acute Anemia Acute COPD exacerbation Acute Cellulitis of finger of right hand Acute Chronic Disease Mgmt/Transitional Care Acute Chronic renal failure Acute Clostridium difficile infection Acute Congestive heart failure Acute Diabetes mellitus type 2 Acute ESRD (end stage renal disease) on dialysis Acute Elevated troponin Acute Hypochloremia Acute Hypoxemia Acute MRSA (methicillin resistant Staphylococcus aureus) Acute 04/16/15 Pneumonia Acute Sepsis without acute organ dysfunction Acute Shortness of breath Acute Urinary tract infection Acute
[2017-04-08] MEDS: LEVOTHYROXINE 125 MCG TAB PO SCH (05:49)
[2017-04-08] MEDS: metroNIDAZOLE 500 MG TAB PO SCH ×2 (05:49→14:54)
[2017-04-08] MEDS: MIDODRINE HCL 5 MG TAB PO SCH ×3 (08:06→14:54)
[2017-04-08] MEDS: ASPIRIN 81 MG CHEWABLE TAB PO SCH (08:06)
[2017-04-08] MEDS: ATORVASTATIN CALCIUM 40 MG TAB PO SCH (08:06)
[2017-04-08] MEDS: PREGABALIN 50 MG CAP PO SCH ×2 (08:06→14:53)
[2017-04-08] MEDS: CLOPIDOGREL BISULFATE 75 MG TAB PO SCH (08:06)
[2017-04-08] MEDS: PSYLLIUM METAMUCIL 1 PKT PO SCH (08:07)
[2017-04-08] MEDS: INSULIN GLARGINE 100 UNITS/ML UNIT SC SCH (08:07)
[2017-04-08] MEDS: HEPARIN 5,000 UNIT/0.5 ML SYR SC SCH ×2 (08:08→08:13)
[2017-04-08] MEDS: CALCIUM CARBONATE 500 MG CHEWABLE TAB PO SCH ×2 (08:08→14:54)
[2017-04-08] MEDS: ACETAMINOPHEN 325 MG TAB PO PRN (08:15)
[2017-04-08] MEDS: TIOTROPIUM INHALER 18 MCG/DOSE 5 DOSE/MDI IH SCH (08:50)
--- NOTE | 2017-04-08 09:29 | SOAPPROG ---
SOAP Progress Note Assessment/Plan: Assessment: 71 y/o F with ESRD on HD who presented with transaminitis and anemia found to have acute cholecystitis. ESRD on HD -plan for HD tomorrow -AVF recent revision, working -using midodrine for BP, stable today HTN/vol -difficult to UF and h/o CHF -will use midodrine as above Anemia -received 1U PRBCs on admission -will dose EPO on dialysis q7d Transaminitis and cholecystitis -refusing surgery -blood cultures negative -on levo/flagyl -trending LFTs, may also be 2/2 to shock liver with hypotension and CHF BMD: -renal diet -continue phos binder Ischemic finger -improving s/p DRIL 2/5 -smoking cessation Thrombocytopenia -plts drop >50% this week -would hold heparin and send HIT -consider peripheral smear -daily CBC 04/08/17 09:30 Subjective: Afebrile overnight. States she isn't smoking here. Denies abdominal pain. Objective: Vital Signs Temp Pulse Resp BP Pulse Ox 36.7 C 64 18 123/56 H 94 04/08/17 08:17 04/08/17 08:51 04/08/17 08:51 04/08/17 08:17 04/08/17 08:51 Microbiology 04/02/17 22:30 Blood Culture - Final Blood Laboratory Results 04/07/17 03:30 04/08/17 05:50 04/07/17 04/08/17 04/09/17 05:59 05:59 05:59 Intake Total 690 150 Output Total 3000 Balance 690 -2850 PT 22.6 SEC (12.0-15.0) H 04/02/17 22:30 INR 1.98 (0.83-1.16) H 04/02/17 22:30 Physical Exam - Physical Exam General Appearance: WD/WN, alert, no apparent distress EENT: PERRL/EOMI, normal ENT inspection Neck: non-tender, full range of motion, supple Respiratory: chest non-tender, decreased breath sounds, crackles Cardiac/Chest: regular rate, rhythm, edema, JVD Abdomen: normal bowel sounds, non-tender, soft Skin: normal color, warm/dry Extremities: pedal edema Neuro/Psych: alert, depressed affect (AVF intact with thrill) ICD10 Worksheet Patient Problems: Problems Problem Status Onset Anemia Active Dyslipidemia Active Hypothyroidism Active Acute hyponatremia Acute Altered mental status Acute Anemia Acute COPD exacerbation Acute Cellulitis of finger of right hand Acute Chronic Disease Mgmt/Transitional Care Acute Chronic renal failure Acute Clostridium difficile infection Acute Congestive heart failure Acute Diabetes mellitus type 2 Acute ESRD (end stage renal disease) on dialysis Acute Elevated troponin Acute Hypochloremia Acute Hypoxemia Acute MRSA (methicillin resistant Staphylococcus aureus) Acute 04/16/15 Pneumonia Acute Sepsis without acute organ dysfunction Acute Shortness of breath Acute Urinary tract infection Acute
--- NOTE | 2017-04-08 10:17 | SOAPPROG ---
SOAP Progress Note Assessment/Plan: Assessment/Plan: 71 y/o female with a history of DMII and CRF. Admitted with hypotension and anemia. Also found to have elevated LFTs and possible cholecystitis and cholelithiasis on abdominal US. She was recently admitted as an inpatient with Steal syndrome of her right first finger with ulceration. S/p right AVF DRIL procedure last hospitalization Recommend lap beny, although pt is still refusing surgery. Will follow as an outpatient both for right AVF, as well as possible cholecystitis and cholelithiasis. Plan for discharge today. Follow up in office in 2 weeks. Remove christiano prior to discharge. S: No complaints of pain in right hand/right first finger. No n/v or abdominal pain. O: Psychiatric: awake and alert General: NAD Abdomen: soft, nontender, normoactive bowel sounds Right arm AVF: thrill appreciated, incision cdi Left groin: incision cdi Blood pressure stable 04/08/17 10:15 Objective: Vital Signs Temp Pulse Resp BP Pulse Ox 36.7 C 64 18 123/56 H 94 04/08/17 08:17 04/08/17 08:51 04/08/17 08:51 04/08/17 08:17 04/08/17 08:51 Microbiology 04/02/17 22:30 Blood Culture - Final Blood Laboratory Results 04/07/17 03:30 04/08/17 05:50 04/07/17 04/08/17 04/09/17 05:59 05:59 05:59 Intake Total 690 150 Output Total 3000 Balance 690 -2850 PT 22.6 SEC (12.0-15.0) H 04/02/17 22:30 INR 1.98 (0.83-1.16) H 04/02/17 22:30 ICD10 Worksheet Patient Problems: Problems Problem Status Onset Anemia Active Dyslipidemia Active Hypothyroidism Active Acute hyponatremia Acute Altered mental status Acute Anemia Acute COPD exacerbation Acute Cellulitis of finger of right hand Acute Chronic Disease Mgmt/Transitional Care Acute Chronic renal failure Acute Clostridium difficile infection Acute Congestive heart failure Acute Diabetes mellitus type 2 Acute ESRD (end stage renal disease) on dialysis Acute Elevated troponin Acute Hypochloremia Acute Hypoxemia Acute MRSA (methicillin resistant Staphylococcus aureus) Acute 04/16/15 Pneumonia Acute Sepsis without acute organ dysfunction Acute Shortness of breath Acute Urinary tract infection Acute
--- NOTE | 2017-04-08 11:41 | PDIAF ---
- Diagnosis Diagnosis: cholecystitis Code Status: Full Code - Medication Management Discharge Medications: Medications to Continue on Transfer Acetaminophen [Tylenol 325mg (*)] 650 mg PO Q6H PRN 12/25/12 [Last Taken ] Nitroglycerin [Nitrostat 0.4 mg (*)] 0.4 mg SL PRN PRN 12/25/12 [Last Taken 03/08] Oxycodone Ir [Oxy Ir 5 mg (RX)] 2.5 mg PO BID PRN 12/25/12 [Last Taken 04/01/17] Polyethylene Glycol 3350 [Miralax 17 gm (*)] 17 gm PO DAILY PRN 12/25/12 [Last Taken Unknown] Midodrine HCl 5 mg PO TUTHSA@0900 01/21/15 [Last Taken 04/02/17] Tiotropium Inhaler [Spiriva Handihaler] 2 puffs IH DAILY 01/21/15 [Last Taken ] Atorvastatin Calcium [Lipitor 80 mg] 80 mg PO DAILY 12/14/16 [Last Taken ] Calcium Carbonate [Tums 500MG (*)] 1,500 mg PO TID 12/14/16 [Last Taken 04/01/17 ] Clopidogrel Bisulfate [Clopidogrel] 75 mg PO DAILY 12/14/16 [Last Taken 04/01/17 ] Insulin Glargine [Lantus 100 UNITS/ML (*)] 3 units SC DAILY 12/14/16 [Last Taken 04/01/17 AM] Insulin Glargine [Lantus 100 UNITS/ML (*)] 5 units SC HS 12/14/16 [Last Taken HS] Metoprolol Tartrate [Lopressor 25 mg (*)] 12.5 mg PO BID 12/14/16 [Last Taken ] Pregabalin [Lyrica 50mg (*)] 50 mg PO TID 12/14/16 [Last Taken 04/01/17] Levothyroxine [Synthroid 125 mcg (*)] 125 mcg PO DAILY06 03/21/17 [Last Taken ] Aspirin [Aspirin 81mg (*)] 81 mg PO DAILY 04/02/17 [Last Taken 04/01/17] Calcium Polycarbophil [FIBERCON] 1,250 mg PO BID 04/02/17 [Last Taken 04/01/17] Levalbuterol 1.25 mg [Xopenex 1.25MG Neb (*)] 1.25 mg IH BID PRN 04/02/17 [Last Taken Unknown] Epoetin Kulwant [Procrit 02773 UNIT/ML (*)] 10,000 unit SC Q7D vial 04/08/17 [ Last Taken Unknown] Midodrine HCl [Proamatine/Midodrin] 5 mg PO TID@0800,1200,1600 tab 04/08/17 [ Last Taken Unknown] levOFLOXACIN [levAQUIN (*)] 500 mg PO DAILY AT 10AM #9 tab 04/08/17 [Last Taken Unknown] metroNIDAZOLE [Flagyl 500 mg (*)] 500 mg PO Q8HRS 9 Days #27 tab 04/08/17 [Last Taken Unknown] traMADol [Ultram 50 mg (*)] 50 mg PO Q6HRS PRN #30 tab 04/08/17 [Last Taken Unknown] Discharge Medications: Refer to the Discharge Home Medication list for PRN reason. - Orders Services needed: Home Care, Registered Nurse, Physical Therapy, Occupational Therapy Home Care Face to Face: I certify that this patient was under my care and that I had the required [id number] encounter meeting the encounter requirements on the discharge day. My findings support the fact that the patient is homebound as defined in Home Care Face to Face Continued: CMS Chapter 7 Medicare Benefits Manual 30.1.1 , The condition of the patient is such that there exists a normal inability to leave home and consequently, leaving home would require a considerable and taxing effort. Isolation Type: Contact Isolation Diet Recommendation: no restrictions on diet Diet Texture: Regular Texture Diet - Follow Up Care Current Providers and Referrals: Constantine Wiggins MD [Medical Doctor] - follow up in 1 week Patient,NotPresent [Unknown] -
[2017-04-08 12:10] VITALS: BP 117/47; PULSE 59; RESP 16; TEMP 98.3; O2SAT 96
--- NOTE | 2017-04-08 14:39 | ASMTLACE ---
LACE Length of stay for Answers: 4-6 days current admission Acuity / Level of Answers: Yes Care: Did the patient have an inpatient admission? Comorbidities - select Answers: Cerebrovascular disease all that apply (CVA, TIA, aneurysms, vasc ular dementia) Chronic pulmonary disease Congestive heart failure Diabetes (uncontrolled or controlled) Other Notes: GERD, PAD # of Emergency department Answers: 1-2 visits in the last 6 months Score: 15 Date Signed: 04/08/2017 02:38 PM Electronically Signed By:Lily Nixon RN
--- NOTE | 2017-04-08 20:00 | GDS ---
[f rep st] DISCHARGE SUMMARY DISCHARGE DIAGNOSES: Include: 1. Acute cholecystitis. 2. Acute hypotension, presumed secondary to infection. 3. End-stage renal disease. 4. Elevated liver function tests, presumed secondary to acute cholecystitis. 5. Recent digital ischemia of the right hand, status post surgical intervention, healing well. 6. Hypertension. 7. Anemia of renal disease. 8. Chronic thrombocytopenia. HISTORY OF PRESENT ILLNESS: A 71-year-old female who presents acutely with abdominal pain. For deta ils of the patient's initial presentation, please see the History and Physical dated 04/02/2017. CONSULTATIVE SERVICES: Include: 1. Infectious Disease. 2. General Surgery. 3. Nephrology. HOSPITAL COURSE: By issue: 1. Acute cholecystitis. Patient had abdominal pain, fever, leukocytosis, as well as imaging. Patijerman nt did not want to undergo cholecystectomy, opted instead for antibiotic treatment. She was initiate d on IV antibiotics, transitioned to p.o. and will complete a full 14-day course post disposition. T he day of disposition, her liver function tests have been downtrending and she is entirely without pa in, tolerating p.o. intake. 2. Recent digital ischemia, status post vascular intervention. Patient's perfusion is markedly impr mireya post surgical intervention by Dr. Wiggins. Her surgical sites all look well with appropriate heal ing. She will continue to follow in the outpatient setting with Dr. Wiggins. 3. End-stage renal disease. Patient did receive hemodialysis and volume removal during her hospital stay. This will be continued at outpatient dialysis center post disposition. 4. Hypertension. Patient was continued on her home medications at discharge minus her high-dose [place]. Again, these medications will be titrated by her customer leader in the outpatient setting. 5. Anemia of renal disease. Patient's hemoglobin is 9, hematocrit 28 on the day of disposition. 6. Thrombocytopenia. Patient did have dramatic drop in her platelet count during this hospital stay from 170 to 90 on the day of disposition, should be followed closely in the outpatient setting on [facility] hospitalizations. 7. Diabetes. She is continued on her outpatient treatment without alteration. 8. History of cerebrovascular accident. Patient is continued on her home medications. There is no new neurologic deficit. DISCHARGE MEDICATIONS: At the time of disposition, please reference med rec printed on 04/08/2017. FOLLOWUP APPOINTMENTS: Include: 1. With Dr. Wiggins in the outpatient setting for postsurgical followup. 2. With her outpatient customer leader in hemodialysis center. 3. Primary care for ongoing management of her medical comorbidities. PENDING STUDIES: There are no pending studies. I spent greater than 30 minutes in the planning and coordination of this discharge. /[id number]/MODL
--- NOTE | 2017-04-09 15:28 | ASDISCHSUM ---
Discharge Information Plan Status:SNF Medically Cleared to Leave: Discharge Date:04/08/2017 03:08 PM D/C Disposition:Custodial Facility ADT D/C Disposition:Custodial Facility Projected Discharge Date:04/08/2017 11:00 AM Transportation at D/C:Medicaid Transportation Discharge Delay Reason: Follow-Up Date:04/08/2017 11:00 AM Discharge Slot: Final Diagnosis: Placement Information Referral Type:*Care Home/SNF Referral ID:[id number] Provider Name:Shantell Benton [place] Address 1:[address] Address 2: City:[place] Selection Factors: State:[place] Patient Contact Information Contact Name:RICKEY Relationship:Sister Address: [facility] City:[facility] Phone: State/Zip Code:[place] [address] Email: Financial Information Financial Class:Medicare Primary Plan Desc:MEDICARE INPATIENT Primary Plan Number:[id number] Secondary Plan Desc:[place] Secondary Plan Number:[id number] Assessment Information [facility] CM Progress Note CM Note CM Note Notes: 71 year old female admitted for malaise, anemia, hepatitis, She has a hx of CHF, CVA, Aphasia, COPD, DM-1, ESRD, on Chronic O2, GERD, PAD. Her sister Cyndy [phone] is listed as her medical decision maker. Patient lives at [facility] and will return when discharged. CM to follow. Date Signed: 04/03/2017 11:38 AM Electronically Signed By:Tawanna Kovacs LCSW [facility] CM Progress Note CM Note CM Note Notes: CM spoke w/ KASSY Fallon regarding d/c POC. Pt is scheduled to have a lap beny at some point. Therapies have been ordered. Therapies are recommending SNF. Pt will most likely return back to [facility] when medically stable. Updates sent to [facility]. CM to follow. Plan: [facility] Date Signed: 04/05/2017 01:33 PM Electronically Signed By:MALORIE Singh LACE LACE Length of stay for Answers: 4-6 days current admission Acuity / Level of Answers: Yes Care: Did the patient have an inpatient admission? Comorbidities - select Answers: Cerebrovascular disease all that apply (CVA, TIA, aneurysms, vasc ular dementia) Chronic pulmonary disease Congestive heart failure Diabetes (uncontrolled or controlled) Other Notes: GERD, PAD # of Emergency department Answers: 1-2 visits in the last 6 months Score: 15 Date Signed: 04/08/2017 02:38 PM Electronically Signed By:Lily Nixon RN Case Management Discharge Plan Note Case Management Discharge Discharge Order Complete? Answers: Yes Patient to Obtain Answers: Other Notes: [facility] Transportation Arranged Answers: [facility] Case Management Transport Answers: Yes Form Complete Faxed Final Orders Answers: Yes Discharge Comments Notes: D/w , final orders faxed. Denis at [facility] notified, transportation set up with Blake adam # [id number] Date Signed: 04/08/2017 02:12 PM Electronically Signed By:Lily Nixon RN Intervention Information Intervention Type:*IM-Signed Date of Service:04/08/2017 11:52 AM Patient Type:Inpatient Staff Member:Ana Paula De Jesus Hours: Discipline: Severity: Comment:
--- NOTE | 2017-04-11 10:26 | GCON ---
[f rep st] CONSULTATION DATE OF CONSULTATION: 04/03/2017 HISTORY OF PRESENT ILLNESS: Patient is a 71-year-old female, familiar to me with chronic renal failu re and recent revision of her dialysis access. She however presented to the hospital with some hypot ension and possible sepsis. Her LFTs were up and gallbladder ultrasound shows multiple stones in the thickened gallbladder. She was transferred here from the dialysis unit because of malaise and feeli ng unwell. ALLERGIES: Adhesive tape. Also allergic to sulfa and some forms of hydrocortisone as well as hydroc odone. PRESENT MEDICATIONS: Include nitroglycerin, Lasix, oxycodone, MiraLAX, Tylenol, insulin, Plavix, Lip itor, Spiriva, midodrine, metoprolol, Lyrica, Synthroid, aspirin, lactulose, Xopenex. PAST MEDICAL HISTORY: Includes diabetes and chronic renal failure, COPD, history of CVA, end-stage r enal disease, fibromyalgia, GERD, hypertension, hyperlipidemia, and peripheral arterial disease terrell katz had a left BK amputation. She has also had a renal cell carcinoma with status post nephrectomy, hi story of Graves disease, history of carotid stenosis. She has also had AV fistula steal syndrome for which she has had a recent revision and has some cellulitis and ischemic changes in the right index finger. REVIEW OF SYSTEMS: Reveals no other findings on a full 10-point review of systems other than related to the HPI and the past history. SOCIAL HISTORY: She is an ex-smoker. PHYSICAL EXAMINATION: GENERAL: Reveals an alert, cooperative, 71-year-old female, in no acute distr ess. HEAD and NECK: Reveals her to be nonicteric. Pupils are normal. No adenopathy or oral lesion s. No bruits. CHEST: Clear and symmetric. CARDIAC: Regular rhythm. She does have a grade 3 syst olic murmur. ABDOMEN: Soft and nontender without masses. EXTREMITIES: Benign with decreased pulse s bilaterally. She has some ischemia on her right index finger. She has a patent AV fistula with de creased but present radial pulse and she is status post a left BK amputation. IMPRESSION: Findings suggestive of cholecystitis. However, she is not very tender, not febrile and nonicteric. RECOMMENDATIONS: Would be consideration for cholecystectomy depending on her liver function tests an d her INR. The patient is not excited about having a gallbladder surgery at this time. We will foll ow her with you. /[id number]/MODL
== END 2017-04-08 15:08 | DRG 444 ==
LOC: F2N 18:15 → F3E 04-05 07:55
PROVIDERS: ADMIT Internal Medicine; ATTEND Internal Medicine
PROC: 02HV33Z Insertion of Infusion Device into Superior Vena Cava, Percutaneous Approach (ICD-10-PCS; principal; 2017-04-03)
PROC: 30233N1 Transfusion of Nonautologous Red Blood Cells into Peripheral Vein, Percutaneous Approach (ICD-10-PCS; 2017-04-03)
PROC: 5A1D70Z Performance of Urinary Filtration, Intermittent, Less than 6 Hours Per Day (ICD-10-PCS; 2017-04-05)
DX: K81.0 Acute cholecystitis (principal); I12.0 Hypertensive chronic kidney disease with stage 5 chronic kidney disease or end stage renal disease; N18.6 End stage renal disease; J96.11 Chronic respiratory failure with hypoxia; D63.1 Anemia in chronic kidney disease; D69.6 Thrombocytopenia, unspecified; E11.9 Type 2 diabetes mellitus without complications; Z99.2 Dependence on renal dialysis; J44.9 Chronic obstructive pulmonary disease, unspecified; I69.320 Aphasia following cerebral infarction; Z72.0 Tobacco use; Z85.528 Personal history of other malignant neoplasm of kidney; Z90.5 Acquired absence of kidney
CPT/HCPCS: 86704-90; 97140-GP; 97162-GP; 97166-GO; 97530-GO; 97530-GP; 97535-GO; C1751; G0472; G8978-GP-CN; G8979-GP-CK; G8987-GO-CL; G8988-GO-CK; J0295; J0885; J1644; J1815; J2543; J3370; P9016